=== PATIENT | female | born 1975 | race Caucasian/White ===

== ENCOUNTER 2023-02-22 16:24 | Outpatient (OUT) | payer BC, SELFPAY | END 2023-02-22 16:25 | disposition home or self-care (01) | LOC: SLEEP 16:25 | PROVIDERS: PCP Nurse Practitioner Family; Visit Provider Nurse Practitioner Family | DX: G47.33 Obstructive sleep apnea (adult) (pediatric) (principal) | CPT/HCPCS: 95806 ==

== ENCOUNTER 2023-03-31 08:51 | Outpatient (OUT) | payer BC, SELFPAY ==
[2023-03-31 08:58] LABS: Hemoglobin 14.1 g/dL (12.0-16.0)
--- NOTE | 2023-03-31 10:01 | RT_ITS ---
The [facility] Test Date: 2023-03-31 Pat Name: OWEN ZARAGOZA Department: Room: - Gender: Female C Architect: Tyson Rangel RRT : 1975 Requested By: [id number] Order Number: [id number] Reading MD: Jim Miller Interpretive Statements Pulmonary function testing was completed according to ATS criteria. Findings were considered accurate and reproducible. No bronchodilator was administered due to normal spirometric values. Due to software limitations, no prior studies (if performed previously) are currently available for comparison. Spirometry: -FEV1/FVC: Normal @ 83% -FEV1: Normal @ 124% -FVC: Normal @ 120% Lung volumes by plethysmography: -RV: Normal @ 102% -TLC: Normal @ 116% Diffusion capacity: -DLCO: Normal @ 100% when corrected for Hb 14.1g/dL Flow-volume loop: -Normal shape Impressions: -Normal PFT. If asthma remains in the differential, may consider methacholine challenge testing. Clinical correlation required. Electronically Signed On 04-10-2023 13:30:51 EST by Jim Miller
== END 2023-03-31 08:52 | disposition home or self-care (01) ==
LOC: CARD 08:52
PROVIDERS: PCP Nurse Practitioner Family; Visit Provider Nurse Practitioner Family
DX: R05.3 Chronic cough (principal); J45.20 Mild intermittent asthma, uncomplicated
CPT/HCPCS: 36415; 85018; 94010; 94726; 94729

== ENCOUNTER 2023-04-14 08:52 | Outpatient (OUT) | payer BC, SELFPAY ==
--- NOTE | 2023-04-14 08:54 | US_ITS ---
The [address] [address] Patient Name: OWEN ZARAGOZA MRN: [id number] date: 1975 Sex: F Assigned Patient Location: US Current Patient Location: US Accession/Order Number: [id number] Exam Date: 04/14/2023 09:00 Report Date: 04/14/2023 11:03 At the request of: APRYL MONTENEGRO Procedure: US pelvis EXAMINATION: US pelvis HISTORY: Bloating, Rebound Tenderness COMPARISON: No relevant comparison available. TECHNIQUE: Transabdominal and/or transvaginal sonographic examination was performed as indicated by examination type. FINDINGS: UTERUS: Hysterectomy. RIGHT OVARY: Contains a 1.8 cm benign-appearing cyst versus dominant follicle. Duplex Doppler demonstrates normal waveform and flow; resistive index 0.6. Ovary size: 3.1 x 1.9 x 2.0 cm LEFT OVARY: Oophorectomy CUL-DE-SAC: Unremarkable. No significant free fluid. BLADDER: Unremarkable. OTHER: None. US/US pelvis IMPRESSION: 1. Prior hysterectomy and left oophorectomy. 2. No acute or specific findings to account for patient's symptoms. Electronically authenticated by: DESTINI MOHR Date: 04/14/2023 11:03
== END 2023-04-14 08:53 | disposition home or self-care (01) ==
LOC: US 08:52
PROVIDERS: PCP Nurse Practitioner Family; Visit Provider Nurse Practitioner Family
DX: R14.0 Abdominal distension (gaseous) (principal); K44.9 Diaphragmatic hernia without obstruction or gangrene; R10.829 Rebound abdominal tenderness, unspecified site; R10.32 Left lower quadrant pain; R68.81 Early satiety; R11.11 Vomiting without nausea
CPT/HCPCS: 76856

== ENCOUNTER 2023-04-19 14:27 | Outpatient (OUT) | payer BC, SELFPAY ==
--- NOTE | 2023-04-19 | XR_ITS ---
The [address] [address] Patient Name: OWEN ZARAGOZA MRN: [id number] date: 1975 Sex: F Assigned Patient Location: [facility] Current Patient Location: Accession/Order Number: [id number] Exam Date: 04/19/2023 14:35 Report Date: 04/20/2023 02:06 At the request of: KUSH NIÑO Procedure: XR ankle RT min 3V PROCEDURE: XR ankle RT min 3V HISTORY: RIGHT ANKLE PAIN after losing balance COMPARISON: None. FINDINGS: BONES:Small ossification adjacent tip of medial malleolus. SOFT TISSUES:No visible soft tissue swelling. EFFUSION:None visible. OTHER: Negative. XR/XR ankle RT min 3V IMPRESSION: 1. Suspect acute small avulsion fracture from tip of medial malleolus. Correlate for site of pain. This could represent sequela of remote injury. Electronically authenticated by: DESTINI MOHR Date: 04/20/2023 02:06
== END 2023-04-19 14:28 | disposition home or self-care (01) ==
LOC: RAD 14:27
PROVIDERS: PCP Nurse Practitioner Family; Visit Provider Podiatrist Foot & Ankle Surgery
DX: M25.571 Pain in right ankle and joints of right foot (principal)
CPT/HCPCS: 73610

== ENCOUNTER 2023-05-16 15:17 | Outpatient (OUT) | payer BC, SELFPAY ==
--- NOTE | 2023-05-16 15:19 | MR_ITS ---
The [place] [id number] Patient Name: OWEN ZARAGOZA MRN: [id number] date: 1975 Sex: F Assigned Patient Location: MRI Current Patient Location: Accession/Order Number: [id number] Exam Date: 05/16/2023 15:30 Report Date: 05/17/2023 08:20 At the request of: KUSH NIÑO Procedure: MR ankle RT wo con EXAM: MR ankle RT wo con REASON FOR EXAM: peroneal tear, ankle instability. TECHNIQUE: Multiplanar, multisequence imaging of the right ankle was performed without contrast COMPARISON: Plain radiograph 04/19/2023. FINDINGS: There is fusiform thickening and intermediate signal of the Achilles tendon with distal Achilles enthesophytes consistent with tendinosis. No tear. The plantar fascia is minimally thickened with an inferior calcaneal spur. No tear. Laterally, the peroneal tendons are mildly thickened with intermediate signal consistent with tendinosis. No tear identified. Mild tenosynovitis. The superficial peroneal retinaculum appears intact. The lateral ligaments are intact. Medially, the medial flexor tendons demonstrate normal thickness and signal without tendinosis or tear. The deep deltoid ligament is intact. Lisfranc ligament is intact. Anteriorly, the anterior extensor tendons demonstrate normal thickness and signal without tendinosis or tear. The bone marrow signal is without fracture. The talar dome is congruent. The subtalar joints intact. The sinus tarsi is nonedematous. The midfoot is congruent with mild osteoarthritis of the talonavicular joint. The plantar musculature demonstrates normal bulk and signal. Mild nonspecific subcutaneous edema about the lower extremity. MR/MR ankle RT wo con IMPRESSION: 1. 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 Intact superficial peroneal retinaculum. 2. Achilles tendinosis without tear. 3. Mild chronic plantar fasciopathy. 4. Mild midfoot osteoarthritis Electronically authenticated by: MEETA FINK Date: 05/17/2023 08:20
== END 2023-05-16 15:18 | disposition home or self-care (01) ==
LOC: MRI 15:17
PROVIDERS: PCP Nurse Practitioner Family; Visit Provider Podiatrist Foot & Ankle Surgery
DX: M25.371 Other instability, right ankle (principal); S96.811A Strain of other specified muscles and tendons at ankle and foot level, right foot, initial encounter
CPT/HCPCS: 73721

== ENCOUNTER 2023-07-03 07:53 | Outpatient (OUT) | payer SELFPAY ==
--- NOTE | 2023-07-03 | XR_ITS ---
The [address] [address] Patient Name: OWEN ZARAGOZA MRN: [id number] date: 1975 Sex: F Assigned Patient Location: US Current Patient Location: US Accession/Order Number: [id number] Exam Date: 07/03/2023 08:50 Report Date: 07/03/2023 09:19 At the request of: APRYL MONTENEGRO Procedure: XR chest 2V EXAMINATION: XR chest 2V HISTORY: Chronic Cough R05.3, Cigarette Dependence F17.210 COMPARISON: XR chest 03/13/2020 FINDINGS: LUNGS: No significant pulmonary parenchymal abnormalities. VASCULATURE: No increased pulmonary vasculature. PLEURA: No pneumothorax, effusion, or pleural thickening. CARDIAC: No cardiomegaly or cardiac silhouette abnormality. MEDIASTINUM: No visible mass or adenopathy. BONES: No fracture or visible bone lesion. OTHER: Negative. XR/XR chest 2V IMPRESSION: 1. No acute cardiopulmonary process. Stable chest. Electronically authenticated by: DESTINI MOHR Date: 07/03/2023 09:19
--- OUTSIDE RECORDS SUMMARY | 2023-07-03 07:57 | XMS_ITS | CCD ---
Author Name Unknown Address [address] [place] [address] [address] [place] [address] Organization [facility] Care Team Providers Care 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 Name Role Phone Dileep Laboy MD Primary Care Provider DILEEP LABOY Primary Care Physician Candelario Burns Admitting Unavailable Candelario Burns Attending Unavailable DILEEP LABOY Referring Unavail able Phill Hay Attending Unavailable Phill Hay Admitting Unavailable Candelario Burns Referring Unavailable BENOIT ., DR PAN Primary Care Unavailable MARKER ., DR BONILLA Admitting Unavailable MARKER ., DR BONILLA Attending Unavailable MARKER ., DR BONILLA Consulting Unavailable BENOIT ., DR PAN Primary Care Unavailable FORTINO, DR OBEY West Admitting Unavailable FORTINO, DR OBEY West Attending Unavailable FORTINO, DR OBEY West Consulting Unavailable MAY WINTERS V Consulting Unavailable Asaad, Imad Unavailable MD Dileep Laboy Primary Care Provider MD Yao Aguilera Attending Provider [phone] Tami Guthrie Unavailable [phone] Leticia Hansen Unavailable Tami Guthrie Primary Care Unavailable Tami Guthrie Attending Unavailable Tami Guthrie Admitting Unavailable Asaad, Imad Admitting Unavailable AdaladYao Attending Unavailable Dileep Laboy Primary Care Unavailable Israel Naranjo Unavailable Allergies Allergy Classification Reported Allergen(s) Allergy Type Date of Onset Reaction(s) Facility (3 sources) Aspirin; Translations: [aspirin] Drug Allergy Stomach ache (finding) [facility] (18 sources) busPIRone; Translations: [buspirone] Drug Allergy 12-28-19 Renal failure syndrome (disorder) [facility] (3 sources) Codeine; Translations: [codeine] Drug Allergy Stomach ache (finding) [facility] (3 sources) Ethinyl Estradiol; Translations: [ethinyl estradiol] Drug Allergy Bradycardia [facility] (3 sources) Famotidine; Translations: [famotidine] Drug Allergy Abdominal pain (finding) [facility] (3 sources) HYDROmorphone; Translations: [hydromorphone] Drug Allergy tremors [facility] (4 sources) levoFLOXacin; Translations: [levofloxacin] Drug Allergy 12-28-19 Hives [facility] (3 sources) Meperidine; Translations: [meperidine] Drug Allergy Allergy, Unspecified, Not Elsewhere Classified [facility] (3 sources) Metoclopramide; Translations: [metoclopramide] Drug Allergy Abdominal pain (finding) [facility] (6 sources) Penicillins; Translations: [penicillins] Drug allergy 05-15-18 87 Anaphylaxis (disorder) [facility] (3 sources) Sulfamethoxazole ; Translations: [sulfamethoxazol e] Drug Allergy [facility] (1 source) Aspirin Drug Allergy 02-27-20 13 [facility] (1 source) busPIRone Drug Allergy [facility] (1 source) Codeine Drug Allergy 02-27-20 13 [facility] (1 source) Levamisole Drug Allergy 02-27-20 13 [facility] (1 source) levoFLOXacin Drug Allergy [facility] (1 source) Meperidine Drug Allergy 03-05-20 13 [facility] (1 source) Omeprazole Drug Allergy [facility] (1 source) Sulfonamides (Antibiotic) Drug allergy (disorder) 02-27-20 13 [facility] (12 sources) lamoTRIgine Drug Allergy 12-28-19 Unknown, [facility] (14 sources) Penicillin Drug Allergy Unknown [facility] Other (14 sources) Sulfonamides (Antibiotic) Propensity to adverse reactions Unknown [facility] [employer] Other (14 sources) DEMERAL Propensity to adverse reactions Unknown [employer] Other (2 sources) Sulfonamides (Antibiotic); Translations: [Sulfa (Sulfonamide Antibiotics)] Allergy to substance 10-22-19 19 Hives [facility] (1 source) busPIRone Drug Allergy 06-12-19 [facility] (1 source) lamoTRIgine Drug Allergy 12-28-19 [facility] (1 source) levoFLOXacin Drug Allergy 12-28-19 [facility] (1 source) Meperidine Drug Allergy 06-12-19 [facility] Medications Current Medications Medication Drug Class(es) Dates Sig (Normalized) Sig (Original) 8 hr acetaminophen 650 mg extended release oral tablet (15 sources) Start: 03-21-2022 Tylenol 8 Hour Caplet 650 mg oral tablet, extended release 1,300 mg = 2 tab(s), Oral, q8hr, Refills(s) 0 Start Date: 03/21/22 Status: Ordered Tylenol Active acetaminophen 325 mg / oxyCODONE hydrochloride 5 mg oral tablet (1 source) Opioid Agonist Start: 03-01-2022 take 1 tablet by mouth every four hours as needed for pain Percocet 325 mg-5 mg Tab TAKE 1 TABLET BY MOUTH EVERY 4 HOURS NEEDED FOR PAIN Start Date: 03/01/22 Status: Ordered Albuterol (17 sources) beta2-Adrenergi c Agonist Start: 12-27-2022 Albuterol Active MCG INHALATION December 27, 2022 12:00am Start: 08-10-2019 take 60 doses by inh alation every four hours as needed albuterol 0.083% Inh Aleksandra 3 mL 0.083% - 3mL dosing units, Inhalation, q4hr as needed for wheezing, 60 EA, Refill(s) 0, [id number], 163, cm, 08/10/19 11:04:00 EDT, Height/Length Measured, 110, kg, 08/10/19 11:04:00 EDT, Weight Measured Start Date: 08/10/19 Status: Ordered take 2 puff(s) by [facility] every four to six hours as needed Albuterol Sulfate HFA 108 (90 Base) MCG/ACT INHALE 2 PUFFS BY MOUTH EVERY 4-6 HRS NEEDED Inhalation for 17 Days Active take 2 puff(s) by mo uth every four to six hours as needed Albuterol Sulfate HFA 108 (90 Base) MCG/ACT INHALE 2 PUFFS BY MOUTH EVERY 4-6 HRS NEEDED Inhalation for 17 Days Active take 2 puff(s) by mo uth every four to six hours as needed Albuterol Sulfate HFA 108 (90 Base) MCG/ACT INHALE 2 PUFFS BY MOUTH EVERY 4-6 HRS NEEDED Inhalation for 17 Days Active ARIPiprazole 5 mg oral tablet (9 sources) Atypical Antipsychotic take 1 tablet by mouth every twenty-four hours Abilify 5 MG 1 tablet Orally Once a day takes 1/2 tab Active take 1 tablet by pankaj th every twenty-four hours Abilify 5 MG 1 tablet Orally Once a day Active azithromycin 250 mg oral tablet (2 sources) Macrolide Antimicrobial Start: 05-01-2023 Azithromycin 250 MG 2 tablet on the first day, then 1 tablet daily for 4 days Orally Once a day for 5 days Apr, Active cetirizine hydrochloride 10 mg oral tablet (15 sources) Histamine-1 Receptor Antagonist Start: 12-27-2022 Cetirizine Active MG TABLET December 27, 2022 12:00am Start: 12-21-2022 take 1 tablet by pankaj every twenty-four hours Cetirizine HCl 10 MG 1 tablet Orally Once a day for 90 days Dec, Active dicyclomine hydrochloride 20 mg oral tablet (1 source) Anticholinergic Start: 10-21-2018 take 20 mg by mouth four times daily Dicyclomine Active 20 MG PO Four times daily October 21, 2018 12:00am DULoxetine 60 mg delayed release oral capsule (3 sources) Serotonin and Norepinephrine Reuptake Inhibitor take 1 capsule by mouth every twenty-four hours Cymbalta 60 MG 1 capsule Orally Once a day Active gabapentin 600 mg oral tablet (17 sources) Anti-epileptic Agent Start: 12-27-2022 take 600 mg by mouth once daily Gabapentin Active 600 MG PO Daily December 27, 2022 12:00am Start: 03-01-2022 take 1 tablet by pankaj th three times daily gabapentin 600 mg Tab TAKE 1 TABLET BY MOUTH THREE TIMES A DAY Start Date: 03/01/22 Status: Ordered Gabapentin 600 M G 1 tablet Oral 2-3 times per day for 30 days Active ibuprofen 200 mg oral tablet (11 sources) Nonsteroidal Anti-inflammatory Drug take 1 tablet by mouth every six hours Ibuprofen 200 mg 1 tablet as needed Orally every 6 hrs Active lamoTRIgine 100 mg oral tablet (3 sources) Mood Stabilizer, Anti-epileptic Agent take 1 tablet by mouth every twenty-four hours LaMICtal 100 MG 1 tablet Orally Once a day Active meloxicam 15 mg oral tablet (18 sources) Nonsteroidal Anti-inflammatory Drug Start: 11-29-19 take 1 capsule by mouth once daily meloxicam 10 mg oral capsule 10 mg = 1 cap(s), Oral, Daily, Refills(s) 0 Start Date: 11/29/19 Status: Ordered Start: 10-21-2018 take 1 tablet by pankaj th once daily meloxicam 15 mg oral tablet TAKE 1 TABLET BY MOUTH EVERY DAY FOR 30 DAYS Start Date: 03/01/22 Status: Ordered montelukast 10 mg oral tablet (12 sources) Leukotriene Receptor Antagonist Start: 02-10-2023 take 1 tablet by mouth every twenty-four hours Montelukast Sodium 10 MG 1 tablet Orally Once a day for 90 days Jan, Active omeprazole 20 mg delayed release oral capsule (16 sources) Proton Pump Inhibitor Start: 12-27-2022 take 40 mg by mouth twice daily Omeprazole Active 40 MG PO Twice daily 180 90 December 27, 2022 8:44am Start: 12-27-2022 End: 12-27-2022 take 1 capsule by mouth once daily Omeprazole (Prilosec) 20 mg Capsule,Delayed Release(Dr/Ec) Discontinued 20 MG PO Daily December 27, 2022 12:00am December 27, 2022 8:45am polyethylene glycol 3350 258247 mg / potassium chloride 2970 mg / sodium bicarbonate 6740 mg / sodium chloride 5860 mg / sodium sulfate 44796 mg powder for oral solution (2 sources) Osmotic Laxative Start: 12-26-2022 take 236 g by mouth once daily Golytely 236 GM as directed Orally once daily for 1 days Dec, Active pregabalin 75 mg oral capsule (1 source) Start: 03-01-2022 take 1 capsule by mouth three times daily pregabalin 75 mg Cap TAKE 1 CAPSULE BY MOUTH THREE TIMES A DAY FOR 30 DAYS Start Date: 03/01/22 Status: Ordered SudoGest Sinus/Allergy (10 sources) SudoGest Sinus/Allergy Active traMADol hydrochloride 50 mg oral tablet (2 sources) Opioid Agonist Start: 03-01-2022 take 2 tablets by mouth three times daily as needed for pain tramadol 50 mg oral tablet TAKE 2 TABLETS BY MOUTH 3 TIMES A DAY NEEDED FOR PAIN FOR 30 DAYS Start Date: 03/01/22 Status: Ordered Completed/Discontinued Medications Medication Drug Class(es) Dates Sig (Normalized) Sig (Original) albuterol HFA 90 mcg/inh MDI (2 sources) Start: 02-19-2020 take 1 dose by inhalation four times daily albuterol HFA 90 mcg/inh MDI 2 puff(s), Inhalation, QID Wheezing, 1 EA, Refill(s) 0, [id number], 162.5, cm, 01/03/20 10:07:00 EDT, Height/Length Dosing, 102.5, kg, 01/03/20 10:07:00 EDT, Weight Dosing Start Date: 02/19/20 Status: Ordered ondansetron 4 mg disintegrating oral tablet (1 source) Serotonin-3 Receptor Antagonist Start: 10-21-2018 End: 12-27-2022 Ondansetron Discontinued 4 MG PO every 6 to 8 hours October 21, 2018 12:00am December 27, 2022 7:54am raNITIdine 150 mg oral tablet (1 source) Histamine-2 Receptor Antagonist Start: 10-21-2018 End: 12-27-2022 take 1 tablet by mouth twice daily Ranitidine Hcl (Zantac) 150 mg Tablet Discontinued 150 MG PO Twice daily October 21, 2018 12:00am December 27, 2022 7:54am Problems Active Problems Problem Classification Problem Date Documented Da te Episodic/Chronic Abdominal hernia (5 sources) Hiatal hernia; Translations: [Diaphragmatic hernia without obstruction or gangrene] 10-21-2018 Episodic Abdominal pain (20 sources) Left upper quadrant pain; Translations: [Left upper quadrant pain] 10-21-2018 Episodic Administrative/social admission (2 sources) Dietary counseling and surveillance; Translations: [Other specified counseling] Episodic Anxiety disorders (4 sources) Anxiety; Translations: [Chronic post-traumatic stress disorder] 10-30-2018 Chronic Asthma (11 sources) Mild intermittent asthma; Translations: [Mild intermittent asthma, uncomplicated] Chronic Biliary tract disease (2 sources) Biliary calculus 10-30-2018 Episodic Chronic obstructive pulmonary disease and bronchiectasis (1 source) Bronchitis, not specified as acute or chronic Episodic Coagulation and hemorrhagic disorders (2 sources) Heterozygous Factor V Leiden mutation 04-17-2017 Chronic Disorders of lipid metabolism (4 sources) Dyslipidemia; Translations: [Hyperlipidemia, unspecified] Chronic E Codes: Cut/pierceb (1 source) Contact with sharp glass, initial encounter; Translations: [CONTACT W/SHARP GLASS INITIAL ENC] Onset: 3 Episodic Endometriosis (2 sources) Endometriosis (clinical) 08-30-2013 Chronic Esophageal disorders (20 sources) Gastroesophageal reflux disease; Translations: [Todd's esophagus] 08-30-2013 Chronic Headache; including migraine (2 sources) Migraine with aura 11-29-2019 Chronic Immunizations and screening for infectious disease (1 source) Encounter for immunization; Translations: [ENCOUNTER FOR IMMUNIZATION] Onset: 3 Episodic Mood disorders (15 sources) Depressive disorder; Translations: [Recurrent major depressive episodes, moderate ] 03-01-2022 Chronic Nausea and vomiting (1 source) Vomiting without nausea Episodic Open wounds of extremities (4 sources) Laceration without foreign body of right index finger without damage to nail, initial encounter; Translations: [LAC W/O FB RT IF W/O DMG NAIL INIT] Onset: 3 Episodic Osteoarthritis (1 source) Unspecified osteoarthritis, unspecified site; Translations: [UNSPECIFIED OSTEOARTHRITIS UNS SITE] Onset: 2 Chronic Other connective tissue disease (2 sources) Fibromyositis 08-30-2013 Episodic Other connective tissue disease (2 sources) Fibromyalgia; Translations: [FIBROMYALGIA] Onset: 2 Episodic Other connective tissue disease (14 sources) Fibromyalgia; Translations: [Fibromyalgia] Episodic Other gastrointestinal disorders (2 sources) Constipation 03-06-2019 Episodic Other gastrointestinal disorders (16 sources) Dysphagia; Translations: [Dysphagia, unspecified] 03-06-2019 Episodic Other gastrointestinal disorders (14 sources) Constipation alternates with diarrhea; Translations: [Other specified symptoms and signs involving the digestive system and abdomen] Episodic Other gastrointestinal disorders (14 sources) Swollen abdomen; Translations: [Abdominal distension (gaseous)] Episodic Other gastrointestinal disorders (2 sources) Abdominal distension (gaseous) Episodic Other gastrointestinal disorders (1 source) Other specified symptoms and signs involving the digestive system and abdomen Episodic Other lower respiratory disease (2 sources) Chronic cough 11-29-2019 Episodic Other lower respiratory disease (2 sources) Dyspnea 12-09-2019 Episodic Other lower respiratory disease (2 sources) Dyspnea at rest 11-29-2019 Episodic Other nervous system disorders (2 sources) Right cervical root neuropathy 11-29-2019 Chronic Other nervous system disorders (1 source) Other chronic pain; Translations: [OTHER CHRONIC PAIN] Onset: 2 Chronic Other nutritional; endocrine; and metabolic disorders (6 sources) Body mass index 40+ - severely obese; Translations: [Body mass index (BMI) 40.0-44.9, adult] 11-29-2019 Chronic Other nutritional; endocrine; and metabolic disorders (2 sources) Disorder of carbohydrate metabolism 10-30-2018 Chronic Other nutritional; endocrine; and metabolic disorders (5 sources) Morbid obesity; Translations: [Morbid (severe) obesity due to excess calories] 11-29-2019 Chronic Other nutritional; endocrine; and metabolic disorders (1 source) Body mass index (BMI) 40.0-44.9, adult Chronic Other nutritional; endocrine; and metabolic disorders (1 source) Morbid (severe) obesity due to excess calories Chronic Other nutritional; endocrine; and metabolic disorders (1 source) Abnormal weight gain Episodic Other nutritional; endocrine; and metabolic disorders (1 source) Other symptoms and signs concerning food and fluid intake Episodic Other screening for suspected conditions (not mental disorders or infectious disease) (2 sources) Liver enzymes abnormal 03-06-2019 Episodic Other upper respiratory disease (14 sources) Allergic rhinitis; Translations: [Other allergic rhinitis] Chronic Other upper respiratory disease (1 source) Other allergic rhinitis Chronic Pancreatic disorders (not diabetes) (2 sources) Acute pancreatitis 10-30-2018 Episodic Residual codes; unclassified (2 sources) Obstructive sleep apnea of adult 12-09-2019 Chronic Residual codes; unclassified (4 sources) Obstructive sleep apnea syndrome; Translations: [Obstructive sleep apnea (adult) (pediatric)] Chronic Residual codes; unclassified (1 source) Obstructive sleep apnea (adult) (pediatric) Chronic Residual codes; unclassified (14 sources) Early satiety; Translations: [Early satiety] Episodic Residual codes; unclassified (14 sources) Frequent night waking; Translations: [Insomnia, unspecified] Episodic Residual codes; unclassified (1 source) Early satiety Episodic Residual codes; unclassified (1 source) Family history of malignant neoplasm of digestive organs Episodic Spondylosis; intervertebral disc disorders; other back problems (15 sources) Cervical spondylosis without myelopathy; Translations: [Spondylosis without myelopathy or radiculopathy, cervical region] Chronic Substance-related disorders (18 sources) Smoker; Translations: [Nicotine dependence] 04-23-2020 Chronic Comment on above: Added secondary to d ocumentation in Social History. Unclassified (1 source) Dietary counseling and surveillance; Translations: [Dietary counseling and surveillance] Onset: Past or Other Problems Problem Classification Problem Date Documented Da te Episodic/Chronic Other gastrointestinal disorders (1 source) Dysphagia, unspecified; Translations: [Dysphagia, unspecified] Onset: 12-27-2022 Episodic Other non-traumatic joint disorders (1 source) Pain in right shoulder; Translations: [PAIN IN RIGHT SHOULDER] Onset: 01-24-2022 Episodic Spondylosis; intervertebral disc disorders; other back problems (5 sources) Cervicalgia; Translations: [Pain in thoracic spine] Onset: 01-19-2022 Episodic Unclassified (2 sources) Chronic cough R05.3 Unclassified (1 source) Food insecurity Z59.41 Results Test Name Value Interpretation Reference Range Facility Amphetamine Screen Ql (U)Ord ered By: Yao Asaradha on 12-27-2022 Amphetamines Ql (U) Negative Negative [facility] Barbiturates [Presence] in U rine by Screen methodOrdered By: Imad Asaad on 12-27-2022 Barbiturates Screen Ql (U) Negative Negative [facility] Benzodiazepines Screen Ql (U )Ordered By: Imad Asaad on 12-27-2022 Benzodiazepines Ql (U) Negative Negative [facility] Benzoylecgonine [Presence] i n Urine by Screen methodOrdered By: Imad Asaad on 12-27-2022 Benzoylecgonine Screen Ql (U) Negative Negative [facility] Cannabinoids [Presence] in U rine by Screen methodOrdered By: Imad Asaad on 12-27-2022 Cannabinoids Screen Ql (U) Negative Negative [facility] Comment on above: These are unconfirme d results and should not be used for legal purposes. Drug Cut-Off Concentration: AMPH 1000 ng/mL KARMA 200 ng/mL ZOILA 200 ng/mL COCM 300 ng/mL OP 300 ng/mL PCP 25 ng/mL THC 20 ng/mL Drug Screen,Urineon 12-28-19 Amphetamine Screen,Urine Negative Normal Negative [facility] Comment on above: Performed By: #### U RDS #### [address] Barbiturate Screen,Urine Negative Normal Negative [facility] Comment on above: Performed By: #### U RDS #### [address] Benzodiazepines Screen,Urine Negative Normal Negative [facility] Comment on above: Performed By: #### U RDS #### [address] Cannabinoid Screen,Urine Negative Normal Negative [facility] Comment on above: Result Comment: Thes e are unconfirmed results and should not be used for legal purposes. Drug Cut-Off Concentration: AMPH 1000 ng/mL KARMA 200 ng/mL ZOILA 200 ng/mL COCM 300 ng/mL OP 300 ng/mL PCP 25 ng/mL THC 20 ng/mL PERFORMED BY: [place] [address] PATHOLOGIST FIELD [employer] HARVEST CONTRACTOR LOC LANDRY M.D. Performed By: #### U RDS #### [address] Cocaine Screen,Urine Negative Normal Negative [facility] Comment on above: Performed By: #### U RDS #### [place] [address] [place] Opiate Screen,Urine Negative Normal Negative [facility] Comment on above: Performed By: #### U RDS #### [address] Phencyclidine Screen,Urine Negative Normal Negative [facility] Comment on above: Performed By: #### U RDS #### [facility] [address] [id number] [facility] [place] 12-27-2022 L Specimen: [id number] Received: 12/27/22 Status: HERNAN Torres Num: [id number] Spec Type: Surgical Subm Dr: Yao Aguilera MD Tissues: A GASTRIC FOR HP (GASTRIC HP) Procedures: HE/2, Gross/Micro L4, H PYLORI Age/ Patient Sex Location Account Attending Physician Owen Gonzalez 47/F [id number] Yao Aguilera MD SPEC NUM: [id number] RECD: 12/27/22 STATUS: HERNAN TORRES NUM: [id number] ELLA: 12/27/22- DR: Yao Aguilera MD ENTERED: 12/27/[address] [facility] [address]: SPEC TYPE: Surgical DEPT: S ORDERED: HE/2, Gross/Micro L4, H PYLORI ORDERED: HE/2, Gross/Micro L4, H PYLORI Pathological Diagnosis Gastric biopsy: - Antral mucosa with apparently superimposed changes of mild chronic reactive gastropathy and mild inactive chronic gastritis, otherwise without erosion, acute inflam mation, intestinal metaplasia, or glandular atypia identified - H. pylori immunostain with appropriate control is negative for identified Helicobacter organisms Clinical Information GERD, rule out H. pylori Gross Description Received in formalin labeled with the patient's name, date of and gastric are three morris tissues ranging from 0.1 cm to 0.4 x 0.2 x 0.2 cm. Entirely submitted in one cassette labeled A1. Microscopic Description Two H E slides reviewed. The microscopic examination confirms the diagnosis. Specimen: [id number] Received: 12/27/22 Status: HERNAN Torres Num: [id number] Spec Type: Surgical Subm Dr: Yao Aguilera MD Tissues: A GASTRIC FOR HP (GASTRIC HP) Procedures: HE/2, Gross/Micro L4, H PYLORI Patient: Owen Gonzalez [id number] (Continued) Specimen: [id number] Received: 12/27/22 (Continued) Signed (signature on file) Judson Jo MD 12/28/222007 Specimen: [id number] Received: 12/27/22 Status: HERNAN Torres Num: [id number] Spec Type: Surgical Subm Dr: Yao Aguilera MD Tissues: A GASTRIC FOR HP (GASTRIC HP) Procedures: HE/Deric, Gross/Micro L4, H PYLORI Patient: [place] thomas [id number] (Continued) Specimen: [id number] Received: 12/27/22 (Continued) CPT Codes 22800, 75817 Specimen: [id number] Received: 12/27/22 Status: HERNAN Brian Num: [id number] Spec Type: Surgical Subm Dr: Yao Aguilera MD Tissues: A GASTRIC FOR HP (GASTRIC HP) Procedures: TORI/Deric, Gross/Micro L4, H PYLORI Patient: Owen Gonzalez [id number] (Continued) Signed (signature on file) Judson Jo MD 12/28/222007 [facility] Opiates [Presence] in Urine by Screen methodOrdered By: Yao Aguilera on 12-27-2022 Opiates Screen Ql (U) Negative Negative [facility] Phencyclidine Screen Ql (U)O rdered By: Yao Aguilera on 12-27-2022 Phencyclidine Ql (U) Negative Negative [facility] Insurance Correspondence Off iceon 03-29-2022 Insurance Correspondence Office [phone] [id number] #[id number]:[id number] Normal [facility] Coding Summary.on 03-24-2022 Coding Summary. [id number] Gh0bWw+PGhlYWQ+PE1FV NTfE74glJEwsO7AQ2aJM M5VNVUIWBVYDE5ZJC3ys KV3UNxkX4BpnvBz RnuefJCaFC72DXl9XSW6 hUuaMUtezF9nwOOjZ2b7 CoTnNC43cP62ENbsUTSv VuV6OiSbwycviCHg F7olCkYgyDKxOkx+PHRh YmxlIHdpZHRoPScxMDAl IgEjdIosAY9bWm8lKAYp LWNvbGxhcHNlOiBj q8nkBRDcSJbjHM9urDyv X1YprHR9JBMdb6q0Jj98 dHI+SANaFQU7hXcbYWte z863QuCgw3wqXEN9 qOCxMTzgNTH8U17pf2Z0 GRRiXPWsOKB9rOJ1vB2y cFzhtknnB4KqbSTlXtE7 UCM6jEPdtI3geQwz swynuR6oDhj+U54TRH5Z LSDUTW3ZBde5C0VmRtkk dHI+XG20GTCuIW43wKTf wSMwy8fqsBw4EkOl LKSwLMJ6iRivZXcvm5Iw RGYjO38wlVHfp3H1VGVk qKtavSRkWiPbvEW3hZ0v UQjpmvtxr6dkadsd Enkqc8lhwu71jF67H95d IArjHHJuPLQ1EQSwHQCb wMqqsk3ihB9cBp4+IDxj u6ano2tulVw8CnOy NZKjvhZsvPehMEX7r2Ii Od50Z4DldKnbp7VhJim9 hz47fBRil9E6lVW8ODvi YKYceE2kILkxDuH6 YJCnTdAqdO31cATvWIin Ud6rmRsolNlxZF4tEQEb dzdzAAVsrG7uHGDsmPTn wDsmTR0tWMGshqaw r470RgSuJPZ9ZWMfjSXh K1AtrC8yJwEhDVKvBNCp L7YsuSNsLHmwJ959ZXwr RpF9PJNlvzIpH9Tf ZGChrGppYaP1l2J1Sn4H e3ZtcjvrZQV0PPdhYKKa OcDsXaYyRnM5Z9MzJrx0 YYGsbJziVO8zK5Tb MTJhfcwmfikuqYZ8JENm MJCekU98tVSdDWquWu2d r2I6k529FEVdGBBfdO84 Wg9neStlXFGsmTTF vX2cpwbgp8atmvljYlMy LMMdLPn8FSi2KDKleTld ZqWrZPP2KnF7HBC8jXJl iU4hvOspxkyqdG5j Oyc+I96nfN0vECS2SHH2 syzaYNYtirZpDH38LU02 I0HjAcxyfVPgzKG+PGRp nrLkrMveEQ2yUuCl e0pyu1IoCJzzB2YwMRAt DOdsVxv8SKAmRHK9gXA1 rN4qVNLaBSvmn2Y4zNC3 H1DpezMljv7ca7rg VQZdBUkeK20jqJHfg0V3 CZLogSU0JQQepPciXpGv qD99Kat+LVBjpSqmu9Sq Droof8wmd9iwoPa3 IjMwJSIgdmFsaWduPSJ0 w6OiYn09P78dQOvcWHHl VPLgNVEiUGJcfZhgml3c mB4fHs8+PGNvbCB3 vTH7uY2nOWNdFgY8TQyn V818XkDuhUFtJjkni0zx i9eepOe1GzLcCNDueqQj kUfmWIX0y4PmEz90 X77jOTopBWGdEETaKXEg LUVmrTpcfd4sqG8mOj8+ WJ4ns7timx56qK14vYU+ BRHnQPC9fGbeYTrj AKFzuA9uGIctYgJ8LEOo XcIcxM86jVYxEScpUl2p fZfcjOvvYD4sANCrwbcx x231YxPtx6wuALBu zYKpIXhpJPF7E47ag5T9 ERGeYPXqSQG9yGK1nF7p bGlnbjogbGVmdDsgdmVy dVchOKskEBphM030 IHRvcDsnPlBhdGllbnQg XmRzGAl2U4OzPuc1WVMd oCxoDA6jiGRlDCftHo5l oNtseFjeQL7lFWOa mzilp056ZjBvj3dgSYAy jBIxGOzkMHN8C24lj2Y4 EGKjMMLpVOH7jJH5dK9h bGlnbjogbGVmdDsg ovUybHihIMhhPTmhM251 IHRvcDsnPkJpcnRoIERh nKT4NR28KL57nDNhv1F3 cLS4S8RcFXLuzuvl sxredIL3PTRsTWPkfG54 Uo1xjTstGv2qFEFhYMW9 FOThoHCiQ6FqbY2sIhUk NUTiTURuR0QubMJh VYbwE113YNmkLiM4WQEx fgKfY2VwQZXazGdxObV9 j4I2Dn9BL9W8MX97VH37 zVGyi0L0nFQ8Z7Jm SRGjolwwxxyhpCM9IZZg HIPzvP52Kf1rhVpaMc9l UDRuRCI8NMLjyULfO4Ru nR6wWoEqGBHrPWVn H3MvmBIxGAjwZ388WKbe UcX0JOCbtyOdV8GdQCBc sKkeFlX6c7H0Yh4QOZw3 QE21PO01pOEll8X7 vFZ0T2OgTTMltsedehzh cON9MPNvIYOppT14De2n gDskWn6jNKWaVEY8PSXi tUMhF8SgtP9tOiJc RIEuKKMwO6XoeRLgZMxn K971JBhsAvC9JSKmrlRc G0MmOGLhqUzdRrQ4d4O1 Ym0LDAIfMA12BNX3 qJC7RB31KM93T7EzAzwy dGFibGU+PHRhYmxlIHdp ZHRoPScxMDAlJyBzdHls UJ7zNu4bFEOlMYXk cNvugJClOrXji4xrZMXq VHtlLL8ihNnmX1XrbRT3 TSChe9b8Qf05B59dN6Xx dXA+TKKzeCV6aOW6 uD8aBwMvXgF8DOvoE833 IsLjfIWnHqtfg8uow9av dSk6JdL4JAYlenKdqIml ZIJ1f7WxLq42S36x IHdpZHRoPSIxNSUiIHZh wLhchu2vdW4vEc7+PGNv tGN4nRA6tL5cPdLpHgP8 ULogR602RwHnfCOh Anupw5fbl8tliQg6CvSg QGVcjlYseDgmDRA0q9Uz Ga18F7TweFpej8FoIcj9 ru16mPRjf0P5tAV7 V8MxCQWgqtlwnQPmjFqy ZC8nSTDtkgdoNFLovO1x CVMmW2t1EyUgLnI2DRvx I6DgjrV8KRCwcEEd MJojPOK7P93ab7R1ZUNc UTPxFHZ0aYU0qD3kmQao bjogbGVmdDsgdmVydGlj DWvnCMwqR256ULRy mFuiCJVmjQ2pHBEnpISx nPnyGZ6cAEWbitbqWf5A C3YGKdmyXS0ZODeAPAx8 P1BlLku2HJKrzFxr WG9hvMBiCZnwUz1ohUwi xCntPI7xPNZmcemnOUKi rE7xSEXfmKSchHgdHL4r IGJjwbsto661QhXr QSF8IVMmcKJuA8LqvB0u IuZzDKGpDNWgL6VykDBu MHyuF236XFglLcQ5QWEq voGyD4GsUQTaxFwm OyQ6p3I7Qo1zLQ1vXV6z BDp9FF53OT92aQPog1A8 eFC1U4KcGQJjlxnyutuu pNW3SWTtEROasZ95 rQLzXAdyRi2dw2U3g724 HEByIQTmhP14Lv7jrOjq PQGzoRNXhS8dggkfx8zy cjogIzAwMDAwMDt0 NWk3QZBirJaiNqBjERB1 MsO4MJV2jBXcgQ6hgVvl ajgtdM5fAar+NDQgWWVh saO9V0ZfWwv5JFHb gOttZZ0qsNCkFJsbOa7k hVdrjPcaCH1uFRLhbzzc CLNwmX1wZRVxzSAowRws OG3rNSRtotnvz406 SmRzHTL7ROHtyCIzX3Kf xM5gMrLmILFgFGLeQ7Mn pISwIFkyM967ALziNkW7 MPVudrKlI3HvWNEs lPvnGoF9o1P4Ql0TYQ2g kFC2S1RvJru7ANUbwSyn KX5jsMHqBFqcAs2gbIdf gHlmFP0xAFCaonrq KZFuxR6kOPYumRScgTuc SX0lGLBaihueu342QxFy LWO9MZBlbRVbS1ZfsT9b GpZwJVGiEYZzJ7Ya nASvJZfeF014ZDhnCuJ3 RWOiyhUmU8NyACPnyKhv TcE3m6L8Gw8QZRolRB9m zkTyWI9mohM6G4Zv PjwvdHI+BV68SMIzBK46 tFSerVPob8wolRe6IvWh IYRkIHJ2uJhmDQeep1Sb CMGqO40blQCjf6E2 IGNvbGxhcHNlOyBlbXB0 jU6oECuvlaizb8arbyow Qslfr8vybv98rB84M91x IHdpZHRoPSIzMCUi ZSJuhBgxgh3gqY2uPi5+ UQVabEB6dMS6eR3iEiXs EaF7YGezA179LmIxlVAj Shhfu5idw1pqpKh3 IjIwJSIgdmFsaWduPSJ0 b0HdOj68P33pREkoLTWz BIXsVKOyMNKvkOapes6m gG5nPc5+LV8nv1lh op57xP18rTG+PHRkIHN0 xZjqXCjbAHPurK9fSIeo TmA2VFSyEoFueA92tREi BGexIz2jsEwflJld NY3pPLJjcodqi393NuIx p9yuVWKijSDfMFckQWF1 Z45jf6A5UFXtKEHnNRL9 wCQ1kE2jiZkzdmhm bGVmdDsgdmVydGljYWwt SNnxN999LNKwaVexUoKr dCTzX6xxklKUAP2jAajv dGQ+WNKzHVC1hMzu HTluIWPhzQ0xKBVcT0o1 KvWnUoI8LEemM2LsixZ1 LHAmgWWmCAVxdBLZxE7f fulil9nfwaqzOxQt WXQsFOe7HCu7UEVxdIjs JsPvCUK6DqN9ZAB6vNOy lQ4peCcrcnrvbR9dNxh+ RklOOjwvdGQ+PHRk JUY9yPrmYCgrNYJvxF2f KZDjM6k8HcGqWeM6ELuf S5QyecG1VWPmcKHuVKIk nVJMqU4pcwflh4nz gaqrFaArOEEeKYt1BDe2 CKDgjMxtDmMoKHX7DhD4 OZT4hWKgjW1rzPmhmwsw wY7uKay+TVJOOjwv dGQ+AFVxTYM5fWpwRAic RPJrpM0gRSHlQ1k4OsLd KqL2YNqwU6LqdvW0DUMq rNHjTNJdtYXPdT8v iopje7jbynrqEcVqKBFw QYe2NBq8PSXeiIksCoTa KUP1AbD5UVR4jIGqoE2o hSqmoehryK5nTed+ FUM1EMY1QE46TZ96W7Tm PjwvdGFibGU+PHRhYmxl IHdpZHRoPScxMDAlJyBz dGgcZE2uMt5eGJJl LWNv (more content not included)... Normal [facility] Referrals Officeon 2 Referrals Office [id number]# 1.00CD:127 Normal [facility] Physician Orderon 03-23-2022 Physician Order [id number] 3#1.00CD:127 Normal [facility] Physician Order [id number] 2#1.00CD:127 [facility] Consent for Treatmenton Consent for Treatment [id number] 0#1.00CD:127 Normal [facility] Consultation Noteon 03-21-20 22 Consultation Note Patient: OWEN GONZALEZ Age: 46 years Sex: Female : 1975 Associated Diagnoses: None Author: Bharti SHELDON, Phill Miranda Basic Information Accompanied by: No one. Source of history: Self. Referral source: BENOIT SHELDON, DILEEP Méndez History limitation: None. Chief Complaint 03/21/2022 9:11 EST neck pain radiates into right shoulder History of Present Illness 46-year-old female who is experiencing severe right-sided neck and arm/shoulder pain since January of this year. She says she woke up with a slightly sore right shoulder and went to go take care of her 15-year-old disabled daughter. Following taking care of her daughter the patient experienced a severe exacerbation of her pain. The pain has been intense since then. She rates it as a 10/10 on the visual analog scale. Patient does have a significant medical history for fibromyalgia. She is treated through her primary care physician with tramadol, Tylenol, meloxicam, and medical marijuana. Patient finds that the medications take a slight edge off of the pain. Any movement exacerbates the pain. She initially was unable to move her entire right upper extremity. She did go to the emergency room and was told that she pulled a muscle. She was told to try massage therapy. She continues not to be able to move the right upper extremity at the shoulder joint past parallel. The pain and weakness is significantly impacting quality life and activities of daily living. The patient was referred to Dr. Burns who referred the patient here for further evaluation and treatment. Review of Systems Complete review of systems obtained and reviewed. Form scanned. Pertinent findings are noted in the HPI. Health Status Allergies: Allergic Reactions (All) Severity Not Documented Aspirin- Stomach pain... BuSpar- Renal failure. Codeine- Stomach pain... Demerol HCl- Allergy, unspecified, not elsewhere classified. Dilaudid- Tremors. Ethinyl estradiol- Bradycardia. Levaquin- Hives. Penicillins- Anaphylaxis. Pepcid I.V.- Abdominal pain. Reglan- Abdominal pain. Sulfamethoxazole- Hives. Current medications: Home Medications (6) Active albuterol 0.083% Inh Aleksandra 3 mL 0.083% - 3mL dosing units, PRN, Inhalation, q4hr albuterol HFA 90 mcg/inh MDI 2 puff(s), PRN, Inhalation, QID gabapentin 600 mg Tab meloxicam 15 mg oral tablet tramadol 50 mg oral tablet Tylenol 8 Hour Caplet 650 mg oral tablet, extended release 1,300 mg = 2 tab(s), Oral, q8hr Problem list: All Problems Abnormal liver enzymes / SNOMED CT 220448096 / Confirmed Anxiety / SNOMED CT 35909278 / Confirmed Todd's esophagus / SNOMED CT 895072154 / Confirmed Body mass index 40.0-44.9, adult / SNOMED CT 9523806070 / Confirmed Chronic coughing / SNOMED CT 436968821 / Confirmed Chronic post-traumatic stress disorder / SNOMED CT 146365599 / Confirmed Classic migraine / SNOMED CT 3558577 / Confirmed Constipation / SNOMED CT 63300070 / Confirmed Depression / SNOMED CT 04548825 / Confirmed Dysphagia / SNOMED CT 68127977 / Confirmed Dyspnea on minimal exertion / SNOMED CT 517804365 / Confirmed Endometriosis / SNOMED CT 0452378410 / Confirmed Factor 5 Leiden mutation, heterozygous / SNOMED CT 228117537 / Confirmed Fibromyalgia / SNOMED CT 26224196 / Confirmed GERD - Gastro-esophageal reflux disease / SNOMED CT 2062341550 / Confirmed Glucose intolerance / SNOMED CT 46832580 / Confirmed Morbid obesity due to excess calories / SNOMED CT 883001422 / Confirmed Obesity / SNOMED CT X7938H56-0504-7K65-X [id number] / Possible Obstructive sleep apnea, adult / SNOMED CT 3549222540 / Confirmed Right cervical radiculopathy / SNOMED CT 2273307020 / Confirmed Shortness of breath at rest / SNOMED CT 073629312 / Confirmed Smoker / SNOMED CT 191342680 / Confirmed Added secondary to documentation in Social History. Histories Past Medical History: Active GERD - Gastro-esophageal reflux disease (7852984849) Todd's esophagus (900355304) Endometriosis (1730330657) Fibromyalgia (86261025) Resolved Acid reflux (355014347): Resolved. Hiatal hernia (330038221): Resolved. Gallstones (233272407): Resolved. Acute pancreatitis (317707704): Resolved. Family History: Primary malignant neoplasm of colon Uncle Anxiety Child Rheumatoid arthritis Mother Hypothyroidism Mother Diabetes mellitus type 2 Grandparent Alcoholism Brother Stroke Grandparent Depression Child DVT - Deep vein thrombosis Uncle DVT Aunt Procedure history: Hysterectomy (474321021) on 04/28/2017 at 41 Years. Comments: 04/28/2017 17:10 ADELAIDA Ruggiero RN, Leta Robotic-assisted hysterectomy, left salpingo-oophorectom y, right salpingectomy, lysis of adhesions laparoscopic tubal with cautery, fulguration of endometriosis, removal of IUD on 09/04/2013 at 38 Years. Laparoscopic cholecystectomy (72030059). Colonoscopy (412428715). EGD. Social History Social & Psyc (more content not included)... [facility] Comment on above: Result Comment: Elec tronically Signed By: Bharti SHELDON, Phill Cruz.br\Date and Time Signed: 03/21/22 09:54 EST HIPAA Forms Officeon 022 HIPAA Forms Office [id number]. [id number] 5#1.00CD:127 [facility] Legal Correspondence Officeo n 03-21-2022 Legal Correspondence Office [id number]. [id number] 1#1.00CD:127 [facility] Legal Correspondence Office [id number]. [id number] 5#1.00CD:127 [facility] Office/Clinic Note-Physician on 03-21-2022 Office/Clinic Note-Physician [id number]. [id number] 4#1.00CD:127 [facility] Orders Officeon 03-21-2022 Orders Office [id number]. [id number] 9#1.00CD:127 [facility] Patient Correspondenceon Patient Correspondence [id number]. [id number] 5#1.00CD:127 [facility] Patient Correspondence [id number]. [id number] 3#1.00CD:127 [facility] Patient Correspondence [id number]. [id number] 5#1.00CD:127 [facility] Patient Correspondence [id number]. [id number] 5#1.00CD:127 Normal [facility] Patient Correspondence [id number]. [id number] 7#1.00CD:127 Normal [facility] Patient History Officeon Patient History Office [id number] 6#1.00CD:127 Normal [facility] Insurance Correspondence Off iceon 03-15-2022 Insurance Correspondence Office [id number] 6#3.00CD:127 Normal [facility] Coding Summary.on 03-09-2022 Coding Summary. CD:[id number] Gh0bWw+PGhlYWQ+PE1FV TRrS11dzXEykH3MG8cYW U3TQXQOIRLXTV0VOY2bz SB2MGtyR6McnsJr FguivCNpIU04IDp7JZH2 hOxoXBdbdH8zpQTfI2m9 GiMaLX49wM71BTvpEOOv LgL2YeDydjulpHJv Y9rfStWftZPyBve+PHRh YmxlIHdpZHRoPScxMDAl ZiVctBqaZM9qSi9dTZJo LWNvbGxhcHNlOiBj u1lfNGDeTMnrOO1xkXhw B1RdbXK6DVZxs4i0Gb03 dHI+IVXuLSR5gZfhSAjo y449GxSqc8fmNZQ6 cVPxUJpgACC6M22dw0Q0 OHZsQRHxJYM4jBY8xN7p rIttwiavE4XgcUCrDlD4 TKN9pYBamC8szTvs xkfhdU6jPjq+L34YOA4L WJTEFV7NBtb6Z7IwAyjx dHI+PE68VUHoZP15hECd qBUoo8mqaFb4IxAq MMCbXYC9jHakFLqpc8Fu OKRpN95yvPYzl4S6MMOc jCqifSUhXkPduWP9dA2h OYirqbocy9ynztyf Mqlph0ddqo55gD95A10j RLcuDNCkWFJ8UNUmYLEx oEzakx1hkH3aXq3+IDxj l9pfh5mszBw8ClJl ROTbavKbeLtsIPW7q8Zp Zw80A0PobLqkx4MpYwf7 bu68uOXia0R6fAU5FRan XIPdeF5bEKrcIaC9 WJQhCqOyuG88hHSzKCps Dq5hcUtthNmdRS3pILXq zlzbAGQdtG9tUFTehAJt xUarSU5lNAXjbegn n947DeTlCVK5PVIhhUXp L4MptK7fReDxOCGqTTTc L8KicLUoQNtpW906YXhz UdL5KIIrsdDaZ5Ny ZSPkvCatKyG4r5G8Ap1T a4YeefubMIG9NTwvTSOk LwH9ZmMqOqI1U3SvXnc3 YSQnjIigAV3dT7Lh CMOwuuemtfqpzUZ2VOIp YGTauH63tWIxFPmzFe9w a3C5l212RMHkNIZccY49 Tb3xiRelWHTqrWYF bT5fiursj7oyffcrErBw DGFxCTp1YUc9MYNafZhb MnAoCZT9XuW5BIU7tASf bD6isVtlkqpqqJ0u Oyc+K50fnK5hGVF0WFZ5 fppwFBOtozLwLC07BK95 U0DyAucpmWZmmKL+PGRp ksRwpUhnYN6cFoVy j4wcn4PoLWntB2TuWXTg WMgpItm9APMuHKV7gWK5 bV9jBVZvPCiye5C0hKI6 Z4IdjvQjys0oe1pb QNZpPWtmG03sfXWmr1N0 NDRwgEV6JQRqlLniAnGq bO35Tju+QWSpkTkoa5Oj Wxguj0lea4nlsQz1 IjMwJSIgdmFsaWduPSJ0 v0HvOl11U27nPVteZWTn OJVnIGWoHNHvjAejye4x eS7qLh5+PGNvbCB3 oTT7cL9eMLApXgS6ZUsi J693EyCwgILgGqeea0qm m1ausMh8LqTfIAFfwxQj pZbzGZT7i2RyJx68 O59cBYfiBEHtTJSrLYRe AJJpeYcaft4tfD7bEg3+ TV3jr2mzsm72fP80wDR+ FRYoNBU3qZeiYQmf XXOghI2vIJbkObB9TOUw UrRrgX74hDWrVQsuWo4b bFtymDxqSB6cTCQtciud f589BiErp1tzVAJa kDSyPIodHRF7M31nk8F9 TTXrFZBnVDY5fII4rY9q bGlnbjogbGVmdDsgdmVy wPjyETelNUxfH403 IHRvcDsnPlBhdGllbnQg PaJsCFm8U1PvVxy1NWHy hPnpHM2zdPKdIHllGr0s gJswuJbsAY5yBLJn slqqj078TkQks7mpPIJw hLOxOWskUKI5E55qy2I8 KMSaWLWwKKR4dPF0rC7y bGlnbjogbGVmdDsg urJpsIamVTqiDWxwD016 IHRvcDsnPkJpcnRoIERh wTH3CZ79YQ95iOUyf8W7 wAI8G1TlXMHhbjsn pcxvjKV1OMPmDMNnqZ15 Nn6miCblAq0nJANgBJJ5 GGVkaUPpR0NogZ7zEnGn XUZbQTHpK6TreWNk THdmJ969EJexPlA9DPUr mkKpI1GcXEMsrCqwLhC0 a0O9Qz4YX8U0MN24QD39 sUZvh8F0iLM7G5Nk GJIkarjwuvlbmAE3HVYw VYWqyH68Xp2giLzjZv7y NEEbESM9GTWvqTVjO7Xe bL8bWlAtBEZlDAEo C6EnsIIqOQlzP479ZCzj WpM8EKKrwhQcS6DdGNRc gUvpTkI1f8C4Qb9ZMWm6 JH62BH86mTNqz9F9 vJA5Y0McLZUpkcendpkf kBZ9VORkWKBcaQ62Pd7h gIbcBo3oBUDvBCJ7THRq xOSlX7GaeI1yHqCq JSOfPCUoV6UlaVRsALbe T451NLvnFbR4TXGftlPg N8YkZWNksMkhRuE2m7Q1 Da0IRKBpVZ73WOX0 cCI9XV43GL05T8NtCazo dGFibGU+PHRhYmxlIHdp ZHRoPScxMDAlJyBzdHls FN8hYh7uVJDoLKTq rSgbcGYsSjHaf7erVRAs GDewSF6ouHtkA9VdzVZ6 MGIld9q2Bw61H91nV0Sf dXA+JKPagSM3lYA9 iL8zWeNwMvJ8XWabG704 PnMazHQqVxmtj2izu0gp iXl3RzU1RTFtivHayZyv AKR8h5DxKk41B88h IHdpZHRoPSIxNSUiIHZh tOnjpp9qeQ1bRc0+PGNv bJQ9jYV6vB5pMrWaQkD3 QWbiG007AxUdnMRn Cumbq6bac8cioDz9YzMj AMInxjAhdCfhVZK1g5Mf Om24S4SddUkoe9PvHbl6 vt54aFUfx4S8zBB5 M0FfXFBogveaaHNixAqo KZ9rELBrxerrWQStkL5q MEDdC3t4CvAsUpN9VHhs L0FwdvX8MELprIDt ZZdbDZJ1J14oy2H3ETWi IXWsLSX9xCU8eC2icSuk bjogbGVmdDsgdmVydGlj ZEegWEtoA566ZITo gBbdYGZvdQ4lRRAqoDWu gWhoNR7hJLLybaljFo3H C3BKEdxiJR5NAYiMSLj6 I3UsJkm7MBSlfRnv WD2yfXCjTZfgLg3fsWub qEpwWG3dRWJjbjcyARWl fR6kFAKrvKMitDwfDR4f WYHplzaba951HzIo GMD6RENwvSSgA7RtnB2k CcObLBQpVVSlB4OmwCSg VWdxM934OPxlVwF0GZBy scTfE8KsCNHapKqj DmM1t9Z6Fh5sCZ3aES1c OBn8ZZ52VL98iHOys9X7 rRD6L5BhKGJlvmobdthy nWC8WHDgIAIgvF07 bRQbMUhtJa4sp6P9i596 LHDuBLXozQ42El2jlTps KBKvhPVQhA0ggiyrt7nk cjogIzAwMDAwMDt0 CSx7HQCqnDhsIeHgGGH1 JeZ5DTD2lQVkjA7fwAyd lwenmK9eNnn+NDQgWWVh mgD0J7BvRne3CRDf hOmvMW7deQBbVDthAo0e wHjmyRjnDQ1iUZQkakal EZMyuJ6sVUTxyWIltXxw TH6eNCErnifwi696 NhKcASI6VMEmyTMoX3Ed bW5gThMzSCLgZUXhR1Hp gENfBRvpX070CXrjXuO5 KSLgeoNjW1WoINHa mCcfPyA6a4E4Vj4EPW0h pFM4C2DfZeu6MZAgmIfy VF6qvQWaDVmtLa0xuJmz pRaxYO1iNRTbkmbd UATsuU0pYKHxuWZznVhp TU6dEXRntpxtn707MwSl LBZ5VHWxnNBhN3JtrH0g IcTgLEZlYMPyU2Ph jMMeYMwxT365PAslQoM8 ILVdvqJhQ3IaMMNqlBtd IxM8u1T3Ri3PbPWqCEDf CJ79BF76AK78S7Oi PjwvdGFibGU+PHRhYmxl IHdpZHRoPScxMDAlJyBz aDdwSB2nBa4gDXMpZSMq bKvufWGcUzCkw2ve PIXlFHhqJM8otNueO7Hc sKG0RCAym3c0Ld54J50p E0KupIN+XOGeiKF2jJJ0 yJ6hZwWnVqB9VAic C086VhXmtSOoZxnlh4mu e1cvmBp6BaHuURXrbaRc tTjrMCN0k3TjCb77M96i IHdpZHRoPSIyMCUi WLMobWddhz2usY8wSs4+ SGKfgHF8gFH6hB8mRhCc OdY3PCcoK324OxOvwUOh ZhalB08nC8OjdGS+ IZUfBmz0NOQxcMkdVA9o lUExTHqaPt4lQVV9WnUh ExGlGDgwX0LwSUIauimr bvkvmFN5TDIpXKSr mA25Gf9nkEtwOm2iNYMg DFI4AIIerHBgO5GccX4i MkFcVATgPJZxN8WqtFXx CDvuK725KZtzDwT8 CGMoyuWcJ5ElGEPqmUvd MtT1x3Q7Te7SfIpitDSd AY4sVoFeBRv0K3QtZnn4 NMVgcUsrSZ2jeVHx UDxkSb9kwNzuwXatCB8o FNExphpnz995MjGqd7jm ZCMnlOLkEOvtKCK8U87x o5B8JRQbNLEsSBT9 hZJ5hQ1xgEiyzmtjoZJe dDsgdmVydGljYWwtYWxp X604FPSgqUihKvBEPha4 S5LvUci9JCFjfBec QG7mdELmDFkwYf5hzEmv rVwdYZ4yFUOldajou869 XpDrj8tzDFQqlTJaPIkm FAF1P61as1Y5CAWj PPZeEIZ1zYO3gL9bmUda bjogbGVmdDsgdmVydGlj RUptVSbgN355DNDxtQgy Zi4CVnj2F9AvDsj1 UKNnyHsrGN3ezCMlFNcv Wi7rwRqziPbpQU2aARUi pbuwc771NgRhs0brGKSf pWGwYMfrAKW2J41t m9Z3BRXjCVDkOPB3sYL4 qL4rqXhzakpwtQAkqChy jqEkcFrbOTulTAtxJ921 IHRvcDsnPlBheWVy OjwvdGQ+CM78xl12M0Ix GxtxUfc6ADMvAUW9kBK2 tT2yWOLpERgeo8H7wVR4 V5HskdLbtt6qt3yo YXBz (more content not included)... Normal [facility] Consent for Treatmenton 02-12 Consent for Treatment [id number] #1.00CD:127 [facility] HIPAA Forms Officeon 022 HIPAA Forms Office [id number] 6#1.00CD:127 [facility] Legal Correspondence Officeo n 03-01-2022 Legal Correspondence Office [id number]. [id number] 1#1.00CD:127 [facility] Office/Clinic Note-Physician on 03-01-2022 Office/Clinic Note-Physician [id number]. [id number] 4#1.00CD:127 [facility] Orders Officeon 03-01-2022 Orders Office [id number]. [id number] 3#1.00CD:127 [facility] Outside Records Officeon Outside Records Office [id number]. 210 [id number] 0#1.00CD:127 Normal [facility] Radiology Outside Office Finance Clerk yon 02-25-2022 Radiology Outside Office Copy [id number] 3#1.00CD:127 Normal [facility] Referrals Officeon 2 Referrals Office [id number] 0#1.00CD:127 Normal [facility] CNPNon 09-28-2021 CNPN Telephone ([facility]) OWEN GONZALEZ ([id number]) 1975 F Date Time Provider Department 09/28/21 MATHEW ASH [facility] During your visit today, we recorded the following information about you: Aria Yanes 09/28/2021 9:55 AM Signed Provider unavailable. Appointment rescheduled. Called and spoke with patient directly to confirm. Patients initial consult was scheduled for [facility], then she had it moved up to September due to her pain, now her appointment has been rescheduled for next available in December and added to the wait list. Patient is willing to go to any location for a sooner appointment. Is there any possible way to get her in sooner appointment. Please advise. Robbi Wilson RN 09/28/2021 11:01 AM Signed Patient on wait list for sooner appointment. PATRICIO Vasquez [facility] 10/04/2021 2:32 PM Signed Patient calling to see if anything sooner opened up with Dr Ash. (nothing sooner than 12/30/21) She has a special needs child and these issues are affecting her everyday life so much. Please keep her in mind if there is any way to add her on to Dr Ash - willing to go to any location. Can be reached at [phone]. Robbi Wilson RN 10/04/2021 2:59 PM Signed Pt placed on wait list. Robbi Wilson RN Allergies As of Date: 09/28/2021 (Not on File) Date Reviewed: Never Reviewed Reason for Visit: Appointment Rescheduled [1024] Problem List As Of Date: 09/28/2021 (None) Encounter Status:Closed by ARIA YANES on 01/27/22 Normal [facility] Vital Signs Date Time Vital Sign Value Performing Clinician Facility 06-12-2023 12:45-0500 Body height 166.37 cm bttn Other [facility] Other 06-12-2023 12:45-0500 Body mass index (BMI) [Ratio] 46.44 kg/m2 bttn Other [facility] Other 06-12-2023 12:45-0500 Body weight 128.55 kg bttn Other [facility] Other 06-12-2023 12:45-0500 Diastolic blood pressure 79 mm[Hg] bttn Other [facility] Other 06-12-2023 12:45-0500 Respiratory rate 18 /min bttn Other [facility] Other 06-12-2023 12:45-0500 SaO2% (BldA) [Mass fraction] 96 % bttn Other [facility] Other 06-12-2023 12:45-0500 Systolic blood pressure 130 mm[Hg] bttn Other [facility] Other 05-24-2023 10:30-0500 Body height 165.1 cm Tami Guthrie Other [facility] Other 03-29-2023 09:00-0500 Body height 165.1 cm Tami Yimir Other [facility] Other 03-29-2023 09:00-0500 Body mass index (BMI) [Ratio] 44.06 kg/m2 Tami Ajacher Other [facility] Other 03-29-2023 09:00-0500 Body weight 120.11 kg Tami Phelpsbenitaacher Other [facility] Other 03-29-2023 09:00-0500 Diastolic blood pressure 70 mm[Hg] Tami Ajacher Other [facility] Other 03-29-2023 09:00-0500 SaO2% (BldA) [Mass fraction] 96 % Tami Ajacher Other [facility] Other 03-29-2023 09:00-0500 Systolic blood pressure 128 mm[Hg] Tami Ajacher Other [facility] Other 02-10-2023 09:00-0400 Body height 165.1 cm Tami Yimir Other [facility] Other 02-10-2023 09:00-0400 Body mass index (BMI) [Ratio] 42.76 kg/m2 Tami Ajacher Other [facility] Other 02-10-2023 09:00-0400 Body weight 116.58 kg Tami Ajacher Other [facility] Other 02-10-2023 09:00-0400 Diastolic blood pressure 74 mm[Hg] Tami Guthrie Other [facility] Other 02-10-2023 09:00-0400 SaO2% (BldA) [Mass fraction] 97 % Tami Guthrie Other [facility] Other 02-10-2023 09:00-0400 Systolic blood pressure 118 mm[Hg] Tami Guthrie Other [facility] Other 12-27-2022 09:05-0400 Diastolic blood pressure 89 mm[Hg] MD Dileep Laboy Work Phone: [facility] 12-27-2022 09:05-0400 Heart rate 96 /min MD Dileep Laboy Work Phone: [facility] 12-27-2022 09:05-0400 Respiratory rate 16 /min MD Dileep Laboy Work Phone: [facility] 12-27-2022 09:05-0400 SaO2% (BldA) [Mass fraction] 99 % MD Dileep Laboy Work Phone: [facility] 12-27-2022 09:05-0400 Systolic blood pressure 146 mm[Hg] MD Dileep Laboy Work Phone: [facility] 12-27-2022 07:44-0400 Body height 162.56 cm MD Dileep Laboy Work Phone: [facility] 12-27-2022 07:44-0400 Body weight 113.39 kg MD Dileep Laboy Work Phone: [facility] 03-21-2022 09:11-0500 Diastolic blood pressure 84 mm[Hg] Phill Hay [facility] 03-21-2022 09:11-0500 Heart rate 102 /min Phill Hay [facility] 03-21-2022 09:11-0500 Mean blood pressure 96 mm[Hg] Phill Bharti [facility] 03-21-2022 09:11-0500 Respiratory rate 16 /min Phill Hay [facility] 03-21-2022 09:11-0500 Systolic blood pressure 121 mm[Hg] Phill Hay [facility] 03-01-2022 11:01-0400 Diastolic blood pressure 78 mm[Hg] Candelario Burns [facility] 03-01-2022 11:01-0400 Heart rate 92 /min Candelario Burns [facility] 03-01-2022 11:01-0400 Mean blood pressure 94 mm[Hg] Candelario Burns [facility] 03-01-2022 11:01-0400 Respiratory rate 12 /min Candelario Burns [facility] 03-01-2022 11:01-0400 Systolic blood pressure 127 mm[Hg] Candelario Burns [facility] Encounters Encounter Date Encounter Type Care Provider Facility Start: 06-26-2023 End: 06-26-2023 ambulatory Tami Guthrie Other [facility] Other Start: 06-26-2023 Telephone encounter Tami Ramires [facility] Start: 06-12-2023 End: 06-12-2023 ambulatory Tami Guthrie [facility] Other Start: 06-12-2023 Nutrition therapy Israel Naranjo [facility] Start: 06-12-2023 Telephone encounter Tami Ramires [facility] [employer] Start: 05-24-2023 End: 05-24-2023 ambulatory Tami Guthrie Other [facility] Other Start: 05-24-2023 Office outpatient visit 10 minutes Tami Guthrie [facility] Start: 05-16-2023 End: 05-16-2023 ambulatory Tami Guthrie Other [facility] Other Start: 05-16-2023 Telephone encounter Tami Ramires her [facility] Start: 05-01-2023 End: 05-01-2023 ambulatory Tami Guthrie Other [facility] Other Start: 05-01-2023 Office outpatient visit 15 minutes Tami Guthrie [facility] Start: 04-11-2023 End: 04-11-2023 ambulatory Tami Guthrie Other [facility] Other Start: 04-11-2023 Telephone encounter Tami Ramires [facility] Start: 03-30-2023 End: 03-30-2023 ambulatory Leticia Hansen Other [facility] Other Start: 03-30-2023 Telephone encounter Leticia Hansen [facility] [employer] Start: 03-29-2023 End: 03-29-2023 ambulatory Tami Phelpsfantasma Other [facility] Other Start: 03-29-2023 Office outpatient visit 25 minutes Tami Guthrie [facility] Start: 03-09-2023 End: 03-09-2023 ambulatory Tami Phelpsjoeishaan Other [facility] Other Start: 03-09-2023 Telephone encounter Tami Phelpscyril her FPG [facility] Start: 03-06-2023 End: 03-06-2023 ambulatory Tami Phelpsojeishaan Other [employer] Other Start: 03-06-2023 Telephone encounter Tami Phelpscyril her [facility]PG [employer] Start: 02-10-2023 End: 02-10-2023 ambulatory Tami Jerri Other [employer] Other Start: 02-10-2023 Office outpatient visit 25 minutes Tami Jerri FPG [facility] Start: 12-27-2022 End: 12-27-2022 ambulatory Imad Asaad Facility:[facility] Start: 12-27-2022 End: 12-27-2022 Admission to same day surgery center MD Dileep Laboy Work Phone: [facility] Work Phone: Start: 12-27-2022 End: 12-27-2022 ambulatory MD Dileep Laboy Work Phone: [facility] Work Phone: Start: 12-23-2022 End: 12-23-2022 ambulatory Imad Asaad Other [employer] Other Start: 12-23-2022 Telephone encounter Imad Asaad [facility] Start: 08-19-2022 End: 08-19-[address] DILEEP LABOY . Facility: Start: 03-21-2022 End: 03-22-2022 ambulatory Phill Hay Facility:[facility] Start: 03-21-2022 End: 03-21-2022 Pain Management Phill Hay [facility] Start: 03-01-2022 End: 03-02-2022 ambulatory Candelraio Burns Facility:[facility] Start: 03-01-2022 End: 03-01-2022 Patient encounter procedure Candelario Burns [facility] Start: 01-19-2022 End: 01-19-[address] DILEEP LABOY . Facility: Start: 09-28-2021 Telephone encounter Mathew Ash MD Work Phone: Gastroenterology Comment on above: Appointment Reschedu led Procedures Date Procedure Procedure Detail Performing Clinician Start: 12-27-2022 Esophagogastroduodenoscopy MD Dileep mccyo Work Phone: Start: 04-28-2017 Hysterectomy Candelario Burns Comment on above: Robotic-assisted hysterectomy, left salp ingo-oophorectomy, right salpingectomy, lysis of adhesions Start: 09-04-2013 laparoscopic tubal with cautery, fulguration of endometriosis, removal of IUD Candelario Burns Colonoscopy Candelario Burns Esophagogastroduodenoscopy T awilda Burns Laparoscopic cholecystectomy Candelario Burns Plan of Treatment Date Care Activity Detail Author Start: 12-27-2022 [facility] Start: 01-13-2022 Influenza vaccination INFLUENZA (#1) [facility] Start: 2017 Mammography MAMMOGRAM [facility] Start: 08-22-2007 HPV TESTING HPV TESTING [facility] Start: 1998 PAP TESTING PAP TESTING [facility] Start: 1996 Urine microalbumin profile DTAP,TDAP,TD (1 - Tdap) [facility] Start: 08-22-1995 HEPATITIS C SCREENING HEPATITIS C SC REENING [facility] Start: 08-22-1995 HIV SCREENING HIV SCREENING [facility] Start: 1989 Adult depression screening assessment DEPRESSION SCREENING [facility] Start: 02-20-1978 COVID-19 VACCINE (#1) COVID-19 VACCI NE (#1) [facility] Start: 1977 HEPATITIS B (1 of 3 - 3-dose series) HEPATITIS B (1 of 3 - 3-dose series) [facility] Immunizations Immunization Date Immunization Notes Care Provider Mayur angmirta 01-09-2014 influenza, injectabl e, quadrivalent, preservative free Imad Asaad Other [employer] Other Payers Date Payer Category Payer Self-pay [id number] 2021 [facility] Health [facility] [id number] 2021-2021 [facility] [id number] [place] [address] Open Access [id number] 1977 Unknown [id number] 1977 Unknown [id number] 1977 Unknown [id number] 1977 Unknown [id number] 93 1959 Self-pay [id number] 1959 Unknown [id number] Medicaid [facility] [id number] Private Health Insurance [facility] [id number] Unknown [id number] 31 Unknown [id number] 31 Social History Date Type Detail Facility Tobacco smoking status NHIS Tobacco smoking consumption unknown [facility] Start: 1975 Sex Assigned At Not on file [facility] Start: 10-10-2021 End: 10-20-2021 Exposure to SARS-CoV-2 (event) Not sure [facility] Start: 11-29-2019 Tobacco smoking status Light tobacco smoker (finding) [facility] Sex Assigned At Female [facility] Start: 12-27-2022 Tobacco smoking status NHIS Smoker (finding) [facility] Start: 1975 Sex Assigned At Female F [facility] Goals Date Patient Goal Desired Activity /State Functional Status Date Assessment Result Facility 03-21-2022 Functional Status N/A [facility] 03-01-2022 Functional Status N/A [facility] Clinical Notes 04-14-2016 to 06-26-2023 Note Date & Type Note Facility 06-26-2023 Evaluation note Encounter Date Diagnosis Assessment Notes Jun, GERD (gastroesophageal reflux disease) (ICD-10 - K21.9) Jun, Spondylosis of cervical region without myelopathy or radiculopathy (ICD-10 - M47.812) [facility] Other 01-29-2024 Evaluation note* Encounter Date Diagnosis Assessment Notes Treatment Notes Treatment Clinical Notes May, Severe obesity (BMI >= 40) (ICD-10 - E66.01) Consultation date 06-12-2023, weight (pounds): 283.4Plan is to take a weight centric approach to patient care in the treatment of excess adiposity and patient's weight related comorbidities.-Discuss ed treatment options including lifestyle interventions, such as calorie reduction and physical activity, and use of medications as an adjunct to amplify adherence to healthy behavior change-Discussed benefits, risks and side effects of medication. After informed discussion, patient would like to proceedOrders:-Initiat e compounded semaglutide 0.3 mg once weekly and titrate up as tolerated to 0.6 mg once weekly -Son is also a patient on compounded semaglutide -Patient reports an ambiguous history of pancreatitis. She states she was diagnosed in the ER but PCP and gastroenterology refuted diagnoses -I informed patient of side effects and contraindications of GLP-1 RA. She would like to continue -Food is medicine program with son -She has as a child in hospice-Follow up in clinic in 4 weeksThis note was created with voice recognition software. Please excuse errors in vocational nurse lvn. May, Dietary surveillance and counseling (ICD-10 - Z71.3) Discussed in detail high-protein, high-fiber, low-fat nutrition plan favoring calorie deficit and lean tissue mass preservation. -Patient experiences bloating with several foods. Recommend RD appointments -She is meeting with gastroenterology at [facility] May, Exercise counseling (ICD-10 - Z71.89) Absolute HGS at time of consultation (pounds): 76.6Discussed in detail exercise interventions to promote lean tissue mass preservation during calorie restriction. -Meet with Analia May, Food insecurity (ICD-10 - Z59.41) Food is medicine program May, Dyslipidemia (ICD-10 - E78.5) HDL-C 41, triglycerides 141, LDL-C 108 October 2021 May, JUANITO (obstructive sleep apnea) (ICD-10 - G47.33) Pending pickup of CPAP machine May, Other 48 minutes was spent reviewing patient specific healthcare information, interviewing, counseling, and communicating with the patient, and documenting clinical information. [facility] Other 01-11-2024 Reason for visit NarrativeWeight loss clinic referral- [phone] Other 01-10-2024 Evaluation note* Encounter Date Diagnosis Assessment Notes Treatment Notes Treatment Clinical Notes May, Unable to lose weight (ICD-10 - R63.8) Referral placed per pt request to weight loss clinic. May, GERD (gastroesophageal reflux disease) (ICD-10 - K21.9) May, Hiatal hernia (ICD-10 - K44.9) May, BMI 40.0-44.9, adult (ICD-10 - Z68.41) May, Other The patient was seen per scheduled virtual care visit in their home and my location (provider) is in the family practice office setting. The staff involved in visit was myself, Tami Guthrie DNP, CEMENT KILN OPERATOR, SAWMILL MANAGER (provider) . Time spent with patient was approximately 6 minutes. [facility] Other 01-02-2024 Evaluation note* Encounter Date Diagnosis Assessment Notes Treatment Notes Treatment Clinical Notes May, Bloating (ICD-10 - R14.0) May, Alternating constipation and diarrhea (ICD-10 - R19.8) May, GERD (gastroesophageal reflux disease) (ICD-10 - K21.9) May, Hiatal hernia (ICD-10 - K44.9) [facility] Other 12-18-2023 Evaluation note* Encounter Date Diagnosis Assessment Notes Treatment Notes Treatment Clinical Notes Apr, Bronchitis (ICD-10 - J40) Discussed diagnosis with patient. Patient to start Zithromax. Patient to take Zithromax daily with food as prescribed. Finish entire course of antibiotic. Proair inhaler sent today for patient to use PRN cough/wheezing/short ness of breath. Increase fluids and rest. Uxab-jhd-[id number] antipyretics as needed. Warning signs and symptoms reviewed with patient today. Patient to go immediately to the ER should she experience any of these. Patient to notify office should her symptoms persist and not improve. Patient verbalizes understanding and agrees to treatment plan. Apr, Other The patient was seen per scheduled virtual care visit in their homeand my location (provider) is in the family practice office setting. The staff involved in visit was myself, Tami Guthrie DNP, CEMENT KILN OPERATOR, SAWMILL MANAGER (provider) . Time spent with patient was approximately 10 minutes. [employer] Other 11-16-2023 Evaluation note* Encounter Date Diagnosis Assessment Notes Treatment Notes Treatment Clinical Notes Mar, Cigarette nicotine dependence without complication (ICD-10 - F17.210) Mar, Chronic cough (ICD-10 - R05.3) Mar, Mild intermittent asthma without complication (ICD-10 - J45.20) [facility] Other 11-15-2023 Evaluation note* Encounter Date Diagnosis Assessment Notes Treatment Notes Treatment Clinical Notes Mar, Chronic cough (ICD-10 - R05.3) Discussed with pt recommend a repeat pulmonary function test as she is a continued smoker with asthma. Does have this chronic cough with intermittent wheezing at night. Referral also made to pulmonology for a second opinion regarding treatment, as she only uses an albuterol rescue inhaler. Does use this typically every night. Mar, Mild intermittent asthma without complication (ICD-10 - J45.20) Mar, Early satiety (ICD-10 - R68.81) Discussed differential diagnoses in office today. Due to patient's reported pain of right upper adominal pain and left lower quadrant pain that become more severe with eating, causing nausea and vomiting at times with prescenece of hital hernia with reboudn tenderness on exam _ _ we have used shared decision-making process to agree upon a further work-up/ with CT scan of the abdomen and pelvis. . Made patient aware of symptoms will warrant immediate evaluation by emergency department. Will call with results and further plan of care. Pt verbalizes understanding and agrees to plan of care. Mar, Abdominal pain (ICD-10 - R10.9) Mar, Abnormal weight gain (ICD-10 - R63.5) Mar, Hiatal hernia (ICD-10 - K44.9) Mar, Vomiting without nausea, unspecified vomiting type (ICD-10 - R11.11) Mar, Family history of pancreatic cancer (ICD-10 - Z80.0) Mar, Bloating (ICD-10 - R14.0) Mar, Left lower quadrant pain (ICD-10 - R10.32) Mar, Rebound tenderness (ICD-10 - R10.829) Mar, Cigarette nicotine dependence without complication (ICD-10 - F17.210) We discussed possible complications of smoking including risk of heart disease, stroke, lung disease, and increase risk of cancer. Your goal is to quit smoking. The availability, risks, and benefits of medication used to treat nicotine addiction as releveant to you have been discussed. We are working together to achieve these goals with the following plan; barriers to these goals have been discussed. You have been given relevant education handouts and a summary of your care plan. Your next follow-up visit for this problem is six months, we will continue to ask progress for quitting and willingness to quit at each appointment. [facility] Other 10-26-2023 Evaluation note* Encounter Date Diagnosis Assessment Notes Treatment Notes Treatment Clinical Notes Feb, Other OARRS checked l ast filled 04/2022 [facility] Other 09-29-2023 Evaluation note* Encounter Date Diagnosis Assessment Notes Treatment Notes Treatment Clinical Notes Jan, Moderate episode of recurrent major depressive disorder (ICD-10 - F33.1) Referral placed to psychiatry per pt request for further treatment of depression/anxiety/ Jan, Non-seasonal allergic rhinitis due to other allergic trigger (ICD-10 - J30.89) Advised patient to continue using OTC Zyrtec once daily. and will add Singulair. Also encouraged patient to begin using OTC Nasacort or Flonase nasal spray as directed. Symptoms are consistent with allergic rhinitis. No signs of bacterial infection on exam today. Educated patient that allergy symptoms are not always caused by pollen but can also be caused by dust, mold, and pet dander. Wash linens and vacuum often to decrease the amount of dust and dander the patient is exposed to. Warm salt water gargles several times daily and OTC Cepacol sore throat lozenges may help with sore throat. Use Tylenol/ibuprofen as directed for general discomfort. Patient should follow up if symptoms persist or worsen. Patient verbalized understanding and agreement with tx plan. Jan, Fibromyalgia (ICD-10 - M79.7) Referral placed to rheumatology for further options for treatment of fibromyalgia [facility] Other 08-15-2023 [facility] Evaluation + Plan noteExtracted from: Title:NPV Author:Phill Hay MD Date :03/21/22 Impression and Plan 46-year-old female with severe right-sided shoulder and arm pain. I suspect the patient has a rotator cuff injury. Patient also may have an element of cervical radiculitis versus brachial plexus related pain. The majority of her pain does seem to be shoulder related at this point. Regular use of high-dose meloxicam as well as a guided home therapy program have not provided adequate relief. I recommend MRI without contrast of the right shoulder for further evaluation. I also suggested starting a formal physical therapy and referral to orthopedics for further evaluation. The patient and I discussed the likely etiologies of her pain. She will return to clinic after the MRI has been complete. Patient agrees with plan of care. [place] automated Rx report was reviewed and is consistent with medications listed as prescribed. [facility]10-22-2022 NoteHOSPITAL REGULATIONS: All Positive and Important Negative Findings Shall Be Recorded Date of Consultation: 03/01/2022 Attending Physician: Dileep Laboy M.D. Consulting Physician: Candelario Burns M.D. CHIEF COMPLAINT:Right p[posterior shoulder, right arm pain. HISTORY OF PRESENT ILLNESS:A 46 year old female, right-hand dominant. 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 Januaryhe awoke with significant posterior shoulder and right arm pain. She states since that time she has not been able to function with her right arm. She states she felt like she did something caring for her child the day before but since that time has not been functional. She states she received a Medrol Dosepak which did not help her symptoms. She has an underlying diagnosis of fibromyalgia and presently taking gabapentin, Tramadol and Tylenol. She is a three-quarters pack per day smoker. Deniesany left-sided symptoms. Denies any clumsiness in her hands. Denies any clumsiness in her gait. Denies any bowel or bladder symptoms. PAST MEDICAL, PAST SURGICAL, MEDICATIONS, ALLERGIES, SOCIAL HISTORY, REVIEW OF SYMPTOMS AND FAMILY HISTORY: Please refer to the scanned new patient questionnaire for these. PHYSICAL EXAMINATION: General: She is alert and oriented x3, in mild distress. Lower extremities: She arises from a seated position without difficulty. She can heel walk, toe walk and tandem walk. She can get on and off the examination room table without difficulty. 5/5 all muscle groups bilateral lower extremities. Sensation is globally intact to light touch L2-S1 dermatomes. Deep tendon reflexes are normoactive and equal in her knee jerk and ankle jerk. She has no clonus.Full non-tender range of motion of bilateral hips, knees and ankles. Upper extremities: Very minimal range of motion of her right shoulder compared to her left. Left thumb is about T7. Right thumb is just posterior to her greater trochanter. Right upper extremity is difficult to examine secondary to her debilitating pain. Distally everything appears to work. She is n eurologically intact in her left upper extremity. Spine: Cervical spine range of motion is fairly full and non-tender. INVESTIGATIONS: Magnetic resonance imaging of her cervical spine performed 08 February 2022 shows midline to right-sided C4-5, C5-6 and C6-7 disc complexes causing varying degrees of foraminal stenosis more right-sided than left. IMPRESSION:46 year old female, about six week history of severe right shoulder pain unaffected witha Medrol Dosepak. Magnetic resonance imaging that does not correlate. PLAN:I told the patient I am not sure all of her symptoms are coming from her neck. This is almost a Parsonage-Fisher type syndrome and more of a plexopathy than a neck issue. I told her Medrol Dosepaks tend to help acute radiculopathies like this but the Medrol Dosepak did not affect her symptoms.I think she needs to get into pain management. I think she needs a magnetic resonance imaging of her right shoulder. If it is Parsonage-Fisher type syndrome she needs to see a shoulder specialist. She is very concerned because she has to care for her daughter and she states it will be very difficult for her to stop smoking. She can follow up with us juventino Burns M.D. lr Dictated: 03/01/2022 [id number] Transcribed: 03/01/2022 cc:Dileep Laboy M.D.[facility] HospitalComment on above:Result Comment: Electronically Signed By: Grant SHELDON, Candelario Armijo\.br\Date and Time Signed: 03/05/22 21:30 [id number] NotePROCEDURE: [employer] Signa HDXT 1.5 Sagittal T1, T2, STIR and axial T1 and T2 contiguous and cone down images through the cervical spine were performed without contrast administration. HISTORY: Right shoulder pain x 2 weeks, neck stiffness FINDINGS: Normal cervical vertebral body alignment. No vertebral body or posterior element fracture. No bone marrow edema. Normal vertebral body alignment. Mild inflammatory signal paraspinous soft tissues and neighboring facet joints C4-5, C5-6 regions. Normal posterior fossa contents and spinal cord. C1-2 through C3-4: Normal. C4-5: Normal disc volume. Right sided disc osteophyte complex, uncovertebral hypertrophy contributes to mild to moderate entry neuroforaminal zone stenosis. C5-6: Mild disc space loss. Small left, moderate right disc osteophyte complex, uncovertebral hypertrophy contributes to mild left, severe right mid and exit neuroforaminal stenosis. C6-7: Minimal disc space loss. Bilateral disc osteophyte complexes, uncovertebral hypertrophy contributes to mild to moderate bilateral entry neuroforaminal stenosis right greater than left. C7-T1 through T3-4: Normal. IMPRESSION: 1. Moderate to severe neuroforaminal stenosis, right C4-5 through C6-7. Report reported and signed by Leonel Fuentes on 02/08/2022 1050[facility] [id number] NotePROCEDURE: CT CERVICAL SPINE W/O DYE COMPARISON: None. HISTORY: Neck pain TECHNIQUE: Axial, Coronal, and Sagittal CT images obtained without IV contrast. Dose reduction techniques were achieved by using automated exposure control and/or adjustment of mA and/or kV according to patient size and/or use of iterative reconstruction technique. FINDINGS: PARASPINAL AREA: Normal with no visible mass. DISCS: Multilevel disc space narrowing most significant C5-C6 and C6-C7 BONES: Reversal of normal cervical lordosis. No acute fracture or spondylolisthesis. Mild to moderate posterior degenerative spondylosis C5-C7 OTHER: Negative. IMPRESSION: Reversal of normal cervical lordosis Mild to moderate degenerative spondylosis with suspected C5-C6 and C6-C7 foraminal stenosis Hyperdensity posterior to the right C4-C5 vertebral body. A disc herniation is suspected. MRI could be performed for further evaluation Electronically authenticated by: MAY WINTERS Date: 2022-01-19 08:41[facility]05-23-2022 Miscellaneous Notes* Telephone Encounter - Robbi Wilson RN - 10/04/2021 2:58 PM EDT Pt placed on wait list. Robbi Wilson RN * Telephone Encounter - Deanna Jimenes Pss - 10/04/2021 2:30 PM EDT Patient calling to see if anything sooner opened up with Dr Ash. (nothing sooner than 12/30/21) Shehas a special needs child and these issues are affecting her everyday life so much. Please keep her in mind if there is any way to add her on to Dr Ash - willing to go to any location. Can be reached at [phone]. * Telephone Encounter - Robbi Wilson RN - 09/28/2021 10:59 AM EDT Patient on wait list for sooner appointment. Robbi Wilson RN * Telephone Encounter - Aria Yanes - 09/28/2021 9:42 AM EDT Provider unavailable. Appointment rescheduled. Called and spoke with patient directly to confirm. Patients initial consult was scheduled for [facility], then she had it moved up to September due to her pain, now her appointment has been rescheduled for next available in December and added to the wait list. Patient is willing to go to any location for a sooner appointment. Is there any possible way to get her in sooner appointment. Please advise. [facility] History general Narrative - Reported* Type Description Date Medical History Vitamin D deficiency Medical History B12 Surgical History GALLBLADDER Surgical History TUBAL LIGATION Surgical History hysterectomy 04/2016 [facility] [employer] Other 12-01-2016 History general Narrative - Reported* Type Description Date Medical History Vitamin D deficiency Medical History B12 Medical History fibromyalgia Surgical History GALLBLADDER Surgical History TUBAL LIGATION Surgical History hysterectomy 04/2016 [facility] Other Evaluation + Plan note No data available for this section [facility] noteNo InformationNortGuthrie [facility] [employer] Other Evaluation noteNo assessment information available [facility] Work Phone: History and physical note Author Yao Aguilera [facility] December 27, 2022 8:26am Note Date/Time December 27, 2022 8: 26am [facility] [address] [place] [address] Gastroenterology H&P Signed Patient: Owen Gonzalez MR#: [id number] : 1975 Acct:[id number] Age/Sex: 47 / F Adm Date: 3 Loc: Room: Type: [facility] Attending Dr: Yao Aguilera MD Copies to: MD Yao Knight MD~ Date of Service: 12/27/2022 HISTORY & PHYSICAL: Patient's history with special attention to the cardiovascular, pulmonary systems and the current problem was reviewed with the patient immediately prior to the procedure. Present medications and doses reviewed in the EMR. Allergies and pertinent laboratory tests were also reviewedat this time in the EMR. The physical examination, as below, was then performed. Indication, assessment and HPI: 47-year-old female with chronic heartburn associated with intermittent dysphagia here for EGD PHYSICAL EXAMINATION Mouth and Pharynx : Moist mucus membranes, normal dentition Cardiac: Regular rate, regular rhythm Pulmonary: Clear to auscultation bilaterally, no wheezing Neurological: Alert and oriented x3, no focal deficits noted Abdomen: Abdomen soft, non-tender REVIEW OF SYSTEMS Constitutional: Denies malaise, fevers Cardiovascular: Denies chest pain, palpitations Respiratory: Denies shortness of breath, wheezing Gastrointestinal: Per HPI Genitourinary: Denies dysuria, polyuria Musculoskeletal: Denies joint swelling, joint stiffness Neurological: Denies numbness, tingling Integumentary: Denies rashes, skin lesions Endocrine: Denies fatigue, weight loss Written informed consent obtained from the patient. Risks (including but not limited to perforation, infection, bloating, bleeding, need for emergent surgeryand loss of life), benefits and alternatives explained and questions answered. The patient verbalized understanding. Based on history patient is an appropriate candidate for the procedure. Yao Aguilera M.D. Documented By: Yao Aguilera MD 12/27/22823 Signed By: <Electronically signed by Yao Aguilera MD> 12/27/22825 [facility] Work Phone: History general Narrative - Reported* Type Description Date Medical History JUANITO (obstructive sleep apnea) Medical History Todd's esophagus Medical History GERD (gastroesophageal reflux di sease) Medical History Endometriosis Medical History Vitamin D deficiency Medical History Anxiety and depression Surgical History GALLBLADDER Surgical History TUBAL LIGATION Surgical History hysterectomy 04/2016 [facility] Other History general Narrative - Reported* Type Description Date Medical History JUANITO (obstructive sleep apnea) Medical History Todd's esophagus Medical History GERD (gastroesophageal reflux di sease) Medical History Endometriosis Medical History Vitamin D deficiency Medical History Anxiety and depression Medical History fibromyalgia Medical History right foot tendonitis Medical History pancreatitis Surgical History GALLBLADDER Surgical History TUBAL LIGATION Surgical History hysterectomy 04/2016 Hospitalization History See above Hospitalization History child [facility] Other Hospital Discharge instructions No data available for this section [facility] Additional Instructions DISCHARGE INSTRUCTIONS FOR UPPER ENDOSCOPY WHAT TO EXPECT: - You may feel full, gassy or cramping after your procedure. In some cases, this may be from a few hours to a day. Walking may help relieve the discomfort. - Your throat may feel sore today from the scope that the doctor passed through your throat to visualize your stomach. Take a throat lozenge or suck on ice to ease the discomfort. - You may notice some streaks of blood in your sputum if the doctor has taken a biopsy. - You should begin to recover from anesthesia within 1 hour of the procedure, however may feel groggy for the next 24 hours. DO's AND DON'Ts: - Call your doctor right away if you have a hard abdomen, severe pain, vomiting or if you cough up large amounts of blood. - Call your doctor if you develop any rashes, hives or difficulty breathing. - If you take 81 mg aspirin for your heart it is safe to resume this medication. - If you take other blood thinner medications your doctor will instruct you when these can safely be resumed. - Do NOT drive for 24 hours. - Do NOT operate machinery such as power tools, lawn mowers, snow blowers, sewing machines, etc. for 24 hours. - Avoid alcoholic beverages and drugs for allergies, nerves, or sleep. - Do NOT stay alone. Do NOT leave your child unattended. - Do NOT make important personal or business decisions or sign any legal documents. - Eat solid foods and drink liquids in smaller amounts than usual until normal appetite returns. If you should experience an upset stomach, liquids high in sugar content (soda, Gold-Aid, non-acid juices) are recommended. - Do NOT smoke. - Do take it easy today. You need not stay in bed, but avoid strenuous activities such as jogging or working out. FOLLOW UP & RECOMMENDATIONS: -Increase omeprazole to 40 mg twice daily seconds before breakfast/dinner. -Please stop smoking -Repeat EGD in 12 weeks -minimize NSAIDs including Meloxicam -Follow up pathology -Notify the doctor if you have any problems. -Office number [phone]. [facility] Work Phone: Progress note No data available for this section [facility] for [facility]arrativeGENERAL SURG RE[facility] [employer] Other Reason for visit NarrativeReferral Tami Guthrie [facility] Other Summary Purpose Family History Relationship Condition Age at Onset Recorded Date/T monica family member Malignant neoplasm of colon Unknown family member Malignant neoplasm of stomach Unknown family member Malignant neoplasm of pancreas Unknown family member Malignant neoplasm of liver Unknown Not Specified Malignant neoplasm of skin Unknown Advance Directives Advance Directive Response Recorded Date/ Time Advance Directives No October 21 1:48am Chief Complaint and Reason for Visit Chief Complaint Gerd Reason for Referral Reason *FU 05/23 evaluate Diagnosis 1 Bloating (R14.0) Diagnosis 2 Alternating constipa tion and diarrhea (R19.8) Diagnosis 3 GERD (gastroesophage al reflux disease) (K21.9) Diagnosis 4 Hiatal hernia (K44.9 ) Referral Organization [facility] [employer] Referring Provider First Name Tami Referring Provider Last Name Jerri Referring Provider Specialty Nurse Pract itioner Referred Organization [facility] Referred Address [address], [place],[address] Referred Provider Specialty Gastroentero logy Referral Priority Routine General Notes Priti Summers 04:52:06 PM >received today, attahments made, notes locked, referral faxed Reason *Waiting for appt evaluate Diagnosis 1 Chronic cough (R05.3 ) Diagnosis 2 Mild intermittent as thma without complication (J45.20) Referral Organization [facility] [employer] Referring Provider First Name Tami Referring Provider Last Name Rohrbacher Referring Provider Specialty Nurse Pract itioner Referred Organization [facility] Pulmonary Dise ase Referred Provider Steven Machado Referred Address [address],[place],[address] Referred Provider Specialty Pulmonary Di seases Referral Priority Routine General Notes Priti Summers 02:24:08 PM >received today, sent P2P Reason evaluate Diagnosis 1 Fibromyalgia (M79.7) Referral Organization [facility] [employer] [facility] Referring Provider First Name Tami Referring Provider Last Name Rohrbacher Referring Provider Specialty Nurse Pract itioner Referred Organization [facility] Referred Provider Jude Martínez Referred Address [address] [place],[address] Referred Provider Specialty Rheumatology Referral Priority Routine General Notes Priti Summers 01:59:12 PM > Received fax, attachments made, note not locked Reason needs referral for M[facility] Diagnosis 1 Moderate episode of recurrent major depressive disorder (F33.1) Referral Organization [facility] Referring Provider First Name Tami Referring Provider Last Name Rohrbacher Referring Provider Specialty Nurse Pract itioner Referred Organization [facility] Referred Address [address] [place],[address] Referred Provider Specialty Psychiatry Referral Priority Routine General Notes Priti Summers 02:14:39 PM > Received fax, attatchments made, note is not locked Clinical Notes f: [id number] Additional Source Comments Source Comments (unrecognize d section and content) In the event this informatio n is protected by the Federal Confidentiality of Alcohol and Drug Abuse Patient Records regulations: The Federal rules restrict any use of the information to criminally investigate or prosecute any alcohol or drug abuse patient[facility] Reason for Visit (unrecogniz ed section and content) refill Reason Comments Appointment Rescheduled Care Teams (unrecognized sec tion and content) 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 Relationship Specialty Start Date End Date Dileep Laboy MD [address] [place] [address] PCP - General Family Practice 09/01/21 Team Status: Active Member Role Status Dates Dileep Laboy MD Primary Care Provider Active Team Status: Inactive Member Role Status Dates Dileep Laboy MD Primary Care Provider Active Yao Aguilera MD Attending Provider Active INFORMATION SOURCE (unrecogn ized section and content) DATE CREATED AUTHOR 02/11/2022 [facility] DATE CREATED AUTHOR AUTHOR'S ORGANIZ ATION 02/14/2022 [facility] dical Specialist DATE CREATED AUTHOR AUTHOR'S ORGANIZ ATION 03/29/2022 [facility] DATE CREATED AUTHOR AUTHOR'S ORGANIZ ATION [facility]/22/2022 [facility] DATE CREATED AUTHOR AUTHOR'S ORGANIZ ATION 06/23/2023 [facility] FOR RECORDS PERTAINING TO PATIENTS WHO ARE OR HAVE BEEN ENROLLED IN A CHEMICAL DEPENDENCY/SUBSTANCEABUSE PROGRAM, SOME INFORMATION MAY BE OMITTED. This clinical summary was aggregated from multiple sources. Caution should be exercised in using it in the provision of clinical care. This summary normalizes information from multiple sources, and as a consequence, information in this document may materially change the coding, format and clinical context of patient data. In addition, data may be omitted in some cases. CLINICAL DECISIONS SHOULD BE BASED ON THE PRIMARY CLINICAL RECORDS. [facility] [employer] provides no warranty or guarantee of the accuracy or completeness of information in this document.
--- NOTE | 2023-07-03 08:01 | US_ITS ---
The [address] [address] Patient Name: OWEN ZARAGOZA MRN: [id number] date: 1975 Sex: F Assigned Patient Location: US Current Patient Location: US Accession/Order Number: [id number] Exam Date: 07/03/2023 08:02 Report Date: 07/03/2023 09:18 At the request of: APRYL MONTENEGRO Procedure: US abdomen complete EXAMINATION: US abdomen complete HISTORY: Bloating R14.0, Hiatal Hernia K44.9, Vomiting R11.11 COMPARISON: No relevant comparison available. TECHNIQUE: High resolution sonographic examination of the abdomen was performed. FINDINGS: LIVER: Mild fatty infiltration. No significant masses. Duplex Doppler demonstrates normal waveform and flow within main portal vein, 38 cm/s. BILIARY: Cholecystectomy. No abnormal duct dilation. PANCREAS: No visible mass, abnormal atrophy, or ductal dilatation. SPLEEN: 1.8 cm hyperechoic area within spleen; calcification seen on prior CT study. Otherwise normal size and echotexture. KIDNEYS: No mass or obstruction. AORTA/VASCULAR: No aneurysm. OTHER: No anterior abdominal wall hernia or findings of concern in area of patient's bloating. US/US abdomen complete IMPRESSION: 1. No acute or suspicious findings to account for patient's symptoms. Electronically authenticated by: DESTINI MOHR Date: 07/03/2023 09:18
== END 2023-07-03 07:54 | disposition home or self-care (01) ==
LOC: US 07:54
PROVIDERS: PCP Nurse Practitioner Family; Visit Provider Nurse Practitioner Family
DX: R14.0 Abdominal distension (gaseous) (principal); K44.9 Diaphragmatic hernia without obstruction or gangrene; R10.829 Rebound abdominal tenderness, unspecified site; R10.32 Left lower quadrant pain; R68.81 Early satiety; R11.11 Vomiting without nausea; F17.210 Nicotine dependence, cigarettes, uncomplicated; R05.3 Chronic cough; J45.20 Mild intermittent asthma, uncomplicated
CPT/HCPCS: 71046; 76700

== ENCOUNTER 2023-12-15 12:35 | Outpatient (OUT) | payer OTHER, SELFPAY ==
--- NOTE | 2023-12-15 12:38 | MR_ITS ---
[address] [address] Patient Name: OWEN ZARAGOZA MRN: [id number] date: 1975 Sex: F Assigned Patient Location: MRI Current Patient Location: Accession/Order Number: [id number] Exam Date: 12/15/2023 12:45 Report Date: 12/16/2023 06:43 At the request of: SAE GREENFIELD Procedure: MR shoulder RT wo con EXAMINATION: MR shoulder RT wo con HISTORY: internal derangement of right shoulder ; chronic pain COMPARISON: No relevant comparison available. TECHNIQUE: A variety of imaging planes and parameters were utilized for visualization of suspected pathology. Imaging was performed without or with contrast as indicated by examination type. FINDINGS: ROTATOR CUFF REGION CUFF TENDONS: Mild increased signal intensity in the supraspinatus tendon indicates tendon degeneration and/or tendinitis. No donna tear is seen. CUFF MUSCLES: Normal appearing muscles. DELTOID: No significant atrophy or tear. LONG BICEPS TENDON: No abnormal signal, attrition, or tear. LABRUM/BICEPS ANCHOR SUPERIOR: No visible labral tear or biceps anchor pathology. ANTERIOR/INFERIOR: No visible tear or attrition. POSTERIOR: No posterior labrum abnormality. CAPSULE No visible capsular laxity or thickening. AC JOINT REGION AC JOINT: Mild osteoarthropathy with mild narrowing of the underlying coracoacromial arch. AC LIGAMENTS: Normal acromioclavicular ligament. CC LIGAMENTS: Normal coracoclavicular ligaments. ACROMION: Normal horizontal (Type I) configuration. SUBACROMIAL BURSA: Normal. No significant effusion. HYALINE CARTILAGE: Normal. No visible cartilage narrowing or focal defect. OTHER BONES: Normal proximal humerus, glenoid, and coracoid. OTHER OBSERVATIONS: Negative. No other significant findings or glenohumeral effusion. MR/MR shoulder RT wo con IMPRESSION: 1. Mild strain of the supraspinous tendon. 2. Mild degenerative changes of the acromioclavicular joint. Electronically authenticated by: DESTINI MOHR Date: 12/16/2023 06:43
--- OUTSIDE RECORDS SUMMARY | 2023-12-15 12:39 | XMS_ITS | CCD ---
Author Organization [facility] Care Team Providers Care Ehs Teacher Name Role Phone Dileep Laboy MD Primary [...] Unavailable MARKER ., DR BONILLA Consulting Unavailable MARCINYER ., DR PAN Primary Care Unavailable FORTINO, DR OBEY West Admitting Unavailable FORTINO, DR OBEY West Attending Unavailable FORTINO, DR OBEY West Consulting Unavailable MAY WINTERS V Consulting Unavailable Willy, Imad Unavailable MD Dileep Laboy Primary Care Provider [phone] MD Yao Aguilera Attending Provider Tami Guthrie Unavailable [phone] Leticia Hansen Unavailable Israel Naranjo Unavailable Asaradha, Imad Admitting Unavailable Dileep Laboy Primary Care Unavailable Yao Aguilera Attending Unavailable Tami Guthrie Attending Unavailable Tami Guthrie Primary Care Unavailable Tami Guthrie Admitting Unavailable CRISTIANO REED Attending Unavailable JR. GREENFIELD GEORGE C Referring Unavaila john GREENFIELD JR., SAE Casanova Attending Unavaila CRISTIANO Tinajero Attending Unavailable JR. GREENFIELD GEORGE C Referring Unavaila CRISTIANO Tinajero Attending Unavailable JR. GREENFIELD GEORGE C Referring Michael GREENFIELD JR., GEORGE C Attending OBEY Ro Attending Unavailable INDIO AUGUSTINE Referring Unavailable INDIO AUGUSTINE Referring Unavailable INDIO AUGUSTINE Attending Unavailable Allergies Allergy Classification Reported Allergen(s) Allergy Type Date of Onset Reaction(s) Facility (3 sources) Aspirin; Translations: [aspirin] Drug Allergy Stomach ache (finding) [facility] (19 sources) busPIRone; Translations: [buspirone] Drug Allergy 12-28-19 23 Renal failure syndrome (disorder) [facility] (3 sources) Codeine; Translations: [codeine] Drug Allergy Stomach ache (finding) [facility] (3 sources) Ethinyl Estradiol; Translations: [ethinyl estradiol] Drug Allergy Bradycardia [facility] (3 sources) Famotidine; Translations: [famotidine] Drug Allergy Abdominal pain (finding) [facility] (3 sources) HYDROmorphone; Translations: [hydromorphone] Drug Allergy [facility] (5 sources) levoFLOXacin; Translations: [levofloxacin] Drug Allergy 12-28-19 23 [facility] (4 sources) Meperidine; Translations: [meperidine] Drug Allergy 06-12-19 24 Allergy, Unspecified, Not Elsewhere Classified [facility] (3 sources) Metoclopramide; Translations: [metoclopramide] Drug Allergy Abdominal pain (finding) [facility] (7 sources) Penicillins; Translations: [penicillins] Drug allergy 05-15-18 87 Anaphylaxis (disorder) [facility] (3 sources) Sulfamethoxazole ; Translations: [sulfamethoxazol e] Drug Allergy [facility] (1 source) Aspirin Drug Allergy 02-27-20 13 [facility] (1 source) busPIRone Drug Allergy [facility] (1 source) Codeine Drug Allergy 02-27-20 13 [facility] (1 source) Levamisole Drug Allergy 02-27-20 13 [facility] (1 source) levoFLOXacin Drug Allergy [facility] (1 source) Meperidine Drug Allergy 03-05-20 13 [facility] (1 source) Omeprazole Drug Allergy [facility] (1 source) Sulfonamides (Antibiotic) Drug allergy (disorder) 02-27-20 [facility] (13 sources) lamoTRIgine Drug Allergy 12-28-19 Unknown, Rash [facility] (14 sources) Penicillin Drug Allergy Unknown [facility] Other (14 sources) Sulfonamides (Antibiotic) Propensity to adverse reactions Unknown [facility] Other (14 sources) DEMERAL Propensity to adverse reactions Unknown [facility] Other (3 sources) Sulfonamides (Antibiotic); Translations: [Sulfa (Sulfonamide Antibiotics)] Allergy to substance 10-22-19 [facility] (1 source) busPIRone Drug Allergy 06-12-19 [facility] (1 source) lamoTRIgine Drug Allergy 12-28-19 [facility] (1 source) levoFLOXacin Drug Allergy 12-28-19 [facility] (1 source) Meperidine Drug Allergy 06-12-19 [facility] Medications Current Medications Medication Drug [...] PAIN Start Date: 03/01/22 Status: Ordered Albuterol (18 sources) beta2-Adrenergi c Agonist Start: 12-27-2022 Albuterol Active MCG INHALATION December 27, 2022 12:00am Start: 08-10-2019 take 60 doses by inh alation every four hours as needed albuterol 0.083% Inh Aleksandra 3 mL 0.083% - 3mL dosing units, Inhalation, q4hr as needed for wheezing, 60 EA, Refill(s) 0, [facility]/pharmacy #[id number], 163, cm, 08/10/19 11:04:00 EDT, Height/Length Measured, 110, kg, 08/10/19 11:04:00 EDT, Weight Measured Start Date: 08/10/19 Status: Ordered take 2 puff(s) by mo uth every [...] Days Active ARIPiprazole 5 mg oral tablet (11 sources) Atypical Antipsychotic Start: 06-30-2023 End: 06-30-2023 take 5 mg by mouth once daily Aripiprazole Active 5 MG PO Daily June 30, 2023 12:43pm take 1 tablet by pankaj th every [...] Active cetirizine hydrochloride 10 mg oral tablet (16 sources) Histamine-1 Receptor Antagonist Start: 12-27-2022 Cetirizine Active MG TABLET December 27, 2022 12:00am Start: 12-21-2022 take 1 tablet by pankaj th every twenty-four hours Cetirizine HCl 10 MG 1 tablet Orally Once a day for 90 days Dec, Active dicyclomine hydrochloride 20 mg oral tablet (2 sources) Anticholinergic Start: 10-21-2018 take 20 mg by mouth four times daily Dicyclomine Active 20 MG PO Four times daily October 21, 2018 12:00am DULoxetine 60 mg delayed release oral capsule (4 sources) Serotonin and Norepinephrine Reuptake Inhibitor Start: 07-12-2023 take 60 mg by mouth once daily Duloxetine Active 60 MG PO Daily July 12, 2023 1:00am take 1 capsule by mo [facility] every twenty-four hours Cymbalta 60 MG 1 capsule Orally Once a day Active gabapentin 600 mg oral tablet (18 sources) Anti-epileptic Agent Start: 12-27-2022 take 600 [...] days Active ibuprofen 200 mg oral tablet (12 sources) Nonsteroidal Anti-inflammatory Drug Start: 06-30-2023 take 200 mg by mouth every six hours Ibuprofen Active 200 MG PO Every 6 hours June 30, 2023 1:00am take 1 tablet by mouth every six hours Ibuprofen 200 mg 1 tablet as needed Orally every 6 hrs Active lamoTRIgine 150 mg oral tablet (5 sources) Mood Stabilizer, Anti-epileptic Agent Start: 07-12-2023 take 100 mg by mouth once daily Lamotrigine Active 100 MG PO Daily July 12, 2023 1:00am Start: 07-12-2023 take 150 mg by mouth once vivek y Lamotrigine Active 150 MG PO Daily July 12, 2023 1:00am take 1 tablet by pankaj th every twenty-four hours LaMICtal 100 MG 1 tablet Orally Once a day Active lurasidone hydrochloride 20 mg oral tablet (1 source) Atypical Antipsychotic Start: 07-12-2023 take 20 mg by mouth once daily Lurasidone Active 20 MG PO Daily July 12, 2023 1:00am meloxicam 15 mg oral tablet (19 sources) Nonsteroidal Anti-inflammatory Drug Start: 11-29-2019 take 1 capsule by mouth once daily meloxicam 10 mg oral capsule 10 mg = 1 cap(s), Oral, Daily, Refills(s) 0 Start Date: 11/29/19 Status: Ordered Start: 10-21-2018 take 15 mg by mouth once daily Meloxicam Active 15 MG PO Daily October 21, 2018 12:00am montelukast 10 mg oral tablet (14 sources) Leukotriene Receptor Antagonist Start: 08-18-2023 take 1 tablet by mouth once daily Montelukast Active 0 .ROUTE .COMPLEX August 18, 2023 12:20pm TAKE 1 TABLET BY MOUTH EVERY DAY FOR 90 DAYS Start: 06-30-2023 End: 08-18-2023 take 1 tablet by mouth once daily Montelukast Discontinued 1 TAB PO Daily June 30, 2023 1:00am August 18, 2023 12:20pm [employer] tablet Orally Once a day; Note: Source Status: Taking; Refills: 1; Qty: 90 Tablet; Provider: Jerri Armijo Start: 02-10-2023 take 1 tablet by pankaj th every twenty-four hours Montelukast Sodium 10 MG 1 tablet Orally Once a day for 90 days Jan, Active omeprazole 20 mg delayed release oral capsule (18 sources) Proton Pump Inhibitor Start: 12-27-2022 take 40 mg by mouth twice daily Omeprazole Active 40 MG PO Twice daily 180 90 December 27, 2022 8:44am Start: 12-27-2022 End: 12-27-2022 take 1 capsule by mouth once daily Omeprazole (Prilosec) 20 mg Capsule,Delayed Release(Dr/Ec) Discontinued 20 MG PO Daily December 27, 2022 12:00am December 27, 2022 8:45am polyethylene glycol 3350 026775 mg / potassium chloride 2970 mg / sodium bicarbonate 6740 mg / sodium chloride 5860 mg / sodium sulfate 21510 mg powder for oral solution (2 sources) [...] Inhalation, QID Wheezing, 1 EA, Refill(s) 0, [facility]/pharmacy #[id number], 162.5, cm, 01/03/20 10:07:00 EDT, Height/Length Dosing, 102.5, kg, 01/03/20 10:07:00 EDT, Weight Dosing Start Date: 02/19/20 Status: Ordered ondansetron 4 mg disintegrating oral tablet (2 sources) Serotonin-3 Receptor Antagonist Start: 10-21-2018 End: 12-27-2022 Ondansetron Discontinued 4 MG PO every 6 to 8 hours October 21, 2018 12:00am December 27, 2022 7:54am raNITIdine 150 mg oral tablet (2 sources) Histamine-2 Receptor Antagonist Start: 10-21-2018 End: 12-27-2022 [...] Translations: [Left upper quadrant pain] 10-21-2018 Episodic Anxiety disorders (5 sources) Anxiety; Translations: [Chronic post-traumatic stress disorder] 10-30-2018 Chronic Asthma (13 sources) Mild intermittent asthma; Translations: [Mild intermittent asthma, uncomplicated] Chronic Biliary tract disease (2 sources) Biliary calculus 10-30-2018 Episodic Chronic obstructive pulmonary disease and bronchiectasis (1 source) Bronchitis, not specified as acute or chronic Episodic Coagulation and hemorrhagic disorders (2 sources) Heterozygous Factor V Leiden mutation 04-17-2017 Chronic Disorders of lipid metabolism (5 sources) Dyslipidemia; Translations: [Hyperlipidemia, unspecified] Chronic E [...] sources) Constipation 03-06-2019 Episodic Other gastrointestinal disorders (17 sources) Dysphagia; Translations: [Dysphagia, unspecified] 03-06-2019 Episodic [...] and abdomen Episodic Other lower respiratory disease (3 sources) Chronic cough; Translations: [Chronic cough] 11-29-2019 Episodic Other lower respiratory disease (2 sources) Dyspnea 12-09-2019 Episodic Other lower respiratory disease (2 sources) Dyspnea at rest 11-29-2019 Episodic Other nervous system disorders (2 sources) Right cervical root neuropathy 11-29-2019 Chronic Other nervous system disorders (1 source) Other chronic pain; Translations: [OTHER CHRONIC PAIN] Onset: 2 Chronic Other nutritional; endocrine; and metabolic disorders (7 sources) Body mass index 40+ - severely [...] disease (1 source) Other allergic rhinitis Chronic Other upper respiratory disease (1 source) Seasonal allergic rhinitis; Translations: [Other seasonal allergic rhinitis] 07-03-2023 Chronic Pancreatic disorders (not diabetes) (2 sources) Acute pancreatitis 10-30-2018 Episodic Residual codes; unclassified (2 sources) Obstructive sleep apnea of adult 12-09-2019 Chronic Residual codes; unclassified (5 sources) Obstructive sleep apnea syndrome; Translations: [Obstructive sleep apnea (adult) (pediatric)] 06-30-2023 Chronic Residual codes; unclassified (1 source) Obstructive sleep apnea (adult) (pediatric) Chronic Residual codes; unclassified (14 sources) Early satiety; Translations: [Early satiety] Episodic Residual codes; unclassified (15 sources) Frequent night waking; Translations: [Insomnia, unspecified] 07-03-2023 Episodic Residual codes; unclassified (1 source) Early [...] secondary to d ocumentation in Social History. Past or Other Problems Problem Classification Problem Date Documented Da te Episodic/Chronic Administrative/social admission (3 sources) Dietary counseling and surveillance; Translations: [Other specified counseling] Onset: 06-12-2023 Episodic Other gastrointestinal disorders (1 source) Dysphagia, unspecified; [...] on 12-27-2022 Amphetamines Ql (U) Negative Negative [facility] Barbiturates [Presence] in U rine by Screen methodOrdered By: Imad Asaad on 12-27-2022 Barbiturates Screen Ql (U) Negative Negative [facility] Benzodiazepines Screen Ql (U )Ordered By: Imad Asaad on 12-27-2022 Benzodiazepines Ql (U) Negative Negative [facility] Benzoylecgonine [Presence] i n Urine by Screen methodOrdered By: Imad Asaad on 12-27-2022 Benzoylecgonine Screen Ql (U) Negative Negative [facility] Cannabinoids [Presence] in U rine by Screen methodOrdered By: Imad Asaad on 12-27-2022 Cannabinoids Screen Ql (U) Negative Negative [facility] Comment on above: These are unconfirme d results and should not be used for legal purposes. Drug Cut-Off Concentration: AMPH 1000 ng/mL KARMA 200 ng/mL ZOILA 200 ng/mL COCM 300 ng/mL OP 300 ng/mL PCP 25 ng/mL THC 20 ng/mL Drug Screen,Urineon 12-28-19 23 Amphetamine Screen,Urine Negative Normal Negative [facility] Comment on above: Performed By: #### U RDS #### [address] Barbiturate Screen,Urine Negative Normal Negative [facility] Comment on above: Performed By: #### U RDS #### [address] Benzodiazepines Screen,Urine Negative Normal Negative [facility] Comment on above: Performed By: #### U RDS #### [address] Cannabinoid Screen,Urine Negative Normal Negative [facility] Comment on above: Result Comment: Thes e are unconfirmed results and should not be used for legal purposes. Drug Cut-Off Concentration: AMPH 1000 ng/mL KARMA 200 ng/mL ZOILA 200 ng/mL COCM 300 ng/mL OP 300 ng/mL PCP 25 ng/mL THC 20 ng/mL PERFORMED BY: [place] [address] PATHOLOGIST MILL SET UP LOC LANDRY M.D. Performed By: #### U RDS #### [address] Cocaine Screen,Urine Negative Normal Negative [facility] Comment on above: Performed By: #### U RDS #### [address] Opiate Screen,Urine Negative Normal Negative [facility] Comment on above: Performed By: #### U RDS #### [address] Phencyclidine Screen,Urine Negative Normal Negative [facility] Comment on above: Performed By: #### U RDS #### [place] [address] [place] Isidoro 12-27-2022 L Specimen: [id number] Received: 12/27/22 Status: HERNAN Torres Num: [id number] Spec Type: Surgical Subm Dr: Yao Aguilera MD Tissues: A GASTRIC FOR HP (GASTRIC HP) Procedures: HE/2, Gross/Micro L4, H PYLORI Age/ Patient Sex Location Account Attending Physician Tabitha Gonzalez 47/F [id number] Yao Aguilera MD SPEC NUM: [id number] RECD: 12/27/22 STATUS: HERNAN TORRES NUM: [id number] ELLA: 12/27/22- SUBM DR: Yao Aguilera MD ENTERED: 12/27/22-[address] [facility] [address]: SPEC TYPE: Surgical DEPT: S [...] The microscopic examination confirms the diagnosis. Specimen: [id number] Received: 12/27/22 Status: HERNAN Torres Num: [id number] Spec Type: Surgical Subm Dr: Yao Aguilera MD Tissues: A GASTRIC FOR HP (GASTRIC HP) Procedures: HE/2, Gross/Micro L4, H PYLORI Patient: Tabitha Gonzalez [id number] (Continued) Specimen: [id number] Received: 12/27/22 (Continued) Signed (signature on file) Judson Jo MD 12/28/222007 Specimen: [id number] Received: 12/27/22 Status: HERNAN Brian Num: [id number] Spec Type: Surgical Subm Dr: Yao Aguilera MD Tissues: A GASTRIC FOR HP (GASTRIC HP) Procedures: HE/2, Gross/Micro L4, H PYLORI Patient: MilaTabitha [id number] (Continued) Specimen: [id number] Received: 08/15/23-1013 (Continued) CPT Codes 31994, 46252 Specimen: [id number] Received: 12/27/22 Status: HERNAN Torres Num: [id number] Spec Type: Surgical Subm Dr: Yao Aguilera MD Tissues: A GASTRIC FOR HP (GASTRIC HP) Procedures: HE/2, Gross/Micro L4, H PYLORI Patient: Tabitha Gonzalez [id number] (Continued) Signed (signature on file) Judson Jo MD 12/28/222007 Normal [facility] Opiates [Presence] in Urine by Screen methodOrdered By: Yao Aguilera on 12-27-2022 Opiates Screen Ql (U) Negative Negative [facility] Phencyclidine Screen Ql (U)O rdered By: Yao Aguilera on 12-27-2022 Phencyclidine Ql (U) Negative Negative [facility] Insurance Correspondence Off [place] 03-29-2022 Insurance Correspondence Office [phone] [id number] #[email or web address]:[email or web address] Normal [facility] Coding Summary.on 03-24-2022 Coding Summary. CD:[id number] Gh0bWw+PGhlYWQ+PE1FV XFvV67vaVErnS0PV6bRL V6TTYQTGCTOYS0BGW4yt RN7JRhwJ0UtwyOw UzxhwIZxWW36OSy8YKO7 nQbmYYlbaZ7peJKhP9o6 ApSsEV25kB74NVkzYQTw UbK1LzHgwvrigLAz R4ubKrHxkKUwWfp+PHRh YmxlIHdpZHRoPScxMDAl XbJwyCdkQK9uFg0bSSLx LWNvbGxhcHNlOiBj n2loMEPzJFvyJG0ykWiy W8ZfsGN5KOYky6t8Oz41 dHI+ANEjAXN2vIwaOCig d584VoZco8gkVSN6 kEEmZOsaTQE2V53zj6G8 WYYgMYBpBTH4dVF8wK3d gSnncmhdA9AitJUlStF2 WYY6rLThqU0toYti nuonrC4lKxb+M30GSU1Z JVJEFA2GMea6N1MiIkse dHI+WP18UBYwDF65jKJd wHAes5bgnJc2OkKl IREjJUZ3pJnbLGxxv9Bp LIKaG68ddIRgu7Y2OANp qRbktGBfRrOdoQN0iB0g IRlztdoor7abxruy Qotbz3mtyn52pW92M83a XTmbVGNdUXV7POGsOKTh hBejiv7bvR8bBe9+IDxj a4eye5dnjWd4YiXr RHFqevJlxTitPUG2n7Ow Pj55T9EdrLdes5VfGjp1 ti08pLRhs6D1vEU0XQuk CTHuiP0zKVyhUiJ9 EEFhAbVkgB37hSHkZDsi Mu6ypCtxmSboBG4gGSZd osdoYDPbqR0yUQAcoQNo hLckMC8qKXAwwdez t126XsBhCHU7PLYvgQIr P8AgrS4mLsKeMUEeOZBw E6CxhYUpDPwnI645RIro WiE4ZBTdgnIvY9Dn UPMvuMwnNxM8x9Y0Qn6N v6UilnflHHJ0EOlcSLXz MwTyPdWbUtO1I9IgTbl8 TJJbhVhqSK5iS5Ke RTVidawslqwhvDD8TQBy ISOdmM30rTHqEZelWf6a w7W4j744FKHuSOOojT49 Hw7eoYeiNHRlrZQX eK9eysfbh9gzwgshGsHb QGUhXYs6DFq5NCMuiLhb DhBhSSC7DsB6OET9iIVc kT1ypLtcvtawpZ4i Oyc+V54jzD0dWSG5IGP4 twpaIYVestLvTA92BS82 N3VzDeeukGGklYV+PGRp dtCizVqqBV7yZdMo e5icd9FyWCqfE3ZsBLPe ATgrKtz2WLUkBAM5fSW6 qB5bNQCzVBuow7R2kEJ9 K3OhbaZnhf3by9yf TIOeVEncF88dqLOsn8R4 WDEnvTU3AGRklMrsHyTc aL80Koj+FNHjeBpzn9Ii Ndgto9lvc8xgcYv4 IjMwJSIgdmFsaWduPSJ0 c4UhVi84D57eDZhbDKMm AVSgOZHxVMDraBkgpc1s mP8zEl2+PGNvbCB3 bQX1zB7yQVGpVpY6PXik G906VkByiMZbCdymj4qd d1ibtPf7IkNfGNIunvOb vWddAJW4x8ZrXz07 Z60qYMhaTQZeTDLeOYBb SVUasWrswx8ojI1eFj6+ FP8wq2dter88yS94zXC+ FXNcFPU5fIlfVYkk XYBinE4wBJqaWuR7ZRTo EvGowH97aJXzFCtyXs5m lHribFvcCU4uPUMqsdlr a030HoVet7okLBBt xJLgHBtzQKA1H36dv5X4 UJKwFOFlDIH6zDW8aR8g bGlnbjogbGVmdDsgdmVy mVgpGXruGAcoR197 IHRvcDsnPlBhdGllbnQg FoYaFKw1P0FqMus4JZJh iItpMT9hoXYdONttNu7z eBburLhsUH5pEFMa ipfry740BqUud9wbCVHf nUCpOBwyDSQ7H43yo1M6 SWSeNWSwFLX4zVX6wU0h bGlnbjogbGVmdDsg jrRieKlrWQbySApwB462 IHRvcDsnPkJpcnRoIERh tHQ5LE66NB09lUOtz7W1 dQU5V9MbIWLwwatp capebOM9QQAdJYWttO57 My3obZjyGg1gWTZdBYY3 SKIrpYZzJ3CtkE0uIhSp FPVlBRGsK6FelMAz KIizE934QQdtUoY3OOCx mtMxT7ZaHTTuwXnuEaD1 h5R4Mm9CF7I1QP31RP53 gYVfo2S9zMF4X0Zx TNOongityzpenGD9QHSw CDTwsZ66Kd4jcCeuJm6e DMAgBKX7KKCmpHCtC5Ul eI7jXwCkMFSrEEQg Q8QhkRGhSIadJ081SXvl SjW3VUGmdxLbE9ExZKUt yJruScV9i8U4Gq8ABPe2 HX52LB49sJMqq4V9 cLL0A2AxQWGhfnzmimff xAI0RQInXOQtnS16Fr4u dQmsVx1gUSEyGPS3DXAk kNGfI5PmdJ0uXnAr ORViLEVwX1DuiPKfRObu T388XFxfKuH3SMHcikBv R9WmFNWhaYbmNrF2w2K9 Lg4FIUDbNV25OWS5 lWQ1JC36ZM35M4EmJyyd dGFibGU+PHRhYmxlIHdp ZHRoPScxMDAlJyBzdHls XN2sAq6wJMNpPERl vLkmcAPuEtBkp9ddVBKf BOsxEU3ppDwcJ7JzvRV1 RCLeb2a4Il08H15eP6Sx dXA+LINxbYQ3pGC0 vJ6oDdChKaZ7FJfqQ658 VfSpqVOvOvbfp2bqv8zv yYy2PbR5IMDiqqEqeBva FVY9e6RdBd62F81z IHdpZHRoPSIxNSUiIHZh zCyedt2ujX6dVo0+PGNv iNA6mEB9qS1pOwOqJxB5 SYtpI503ZjBkjWGo Sfxbd2hxq1wpuHe8VoId WEOenwOerBquTMG3f3Pl Fx18D1GjyHhqg1WoIap9 lm37zKCur6F5aUN2 S5OkODCtemdqvPBkdNkb PG0sABGkygiqQSAndJ0r EULpX7g3JbYbQjB3NEyl Y0XcdcC4UGHwiEVw SFwiZQW8V70vg3Y3SXRu HFRzEFC1qFS6lE0xjRts bjogbGVmdDsgdmVydGlj IGajUKtyK511ICSn gXirSQIwwM8rVNEaoSEg nFdmCO2bJIJrhlggJz3H O4OIJikhEC9ZDLdQVZr8 E7XqSne2BEQzcNux YM6gsPGbWOfxLo0noIxs rDtkFE6ySEJrltddIQJx hB4iVFSzkOYqnXpsRV2e VJIouesdz499GfRl CLU9BOTroEKoO5TjwE5u UoEbPSCoBGYsB4PhxROl PNliS820DXuwQgO5CLXm luWyW4RtTAAloHut CgE6t0W2Ml2zSX2aYE4e LEr1AG30HA15tEBnf8B4 qKM8Z7MdRSYcteucqypu bNV6ZJFoEFZeeN95 dULkUObpTg8qs3J6y691 CLFhJSTytR93An3feYdg GIHxwHAAfV0ineoqq5og cjogIzAwMDAwMDt0 CRb0YFMjnLojVaNbBWK2 OmI7ADV3fCNihT3naLrg qckpuD7dIks+NDQgWWVh ibO3V6CnZax7MATf sFelSS6rfWAoBHbqIc9e sLodwCcqPL1tQQXftmyb BWNszQ8rPLTfmHBdbEpu SD8eJKJyemdot565 DsArPCW9ZKDabVDpI2Jd tU9oUgRtOKSeNOSeE3Yt zVJxPTimW169AFknOdW6 FOOfnqLlD0KiZVDi lSxnQhQ3s7X8Vx4RMV6r wCT4Y2DsDbj1XXBhuXxl SE5eqJIrAFvyCj4veNok jVcqLZ3tRKOuigog ULTrfO0bVFHoxLEodWcy ZY2fOYHnbeyvf400ZfRr KGV6FTEfpVRkY5YgbF6f HmMaPERqITZvA3Fa dWRgAIacJ815QDdsZjF7 JRJrwyNiF0NnYPEcrNww OiQ8s6L7Cx1MKKehDN2z fgUxVG9gwiM4Q3Jw PjwvdHI+CQ40FOLjDR47 mPPriFNex6lvzMy6SwDh BESjWRF1zDqtXUbfz3Hw OYSrF63wiJUjb1H8 IGNvbGxhcHNlOyBlbXB0 rT5wMVjrdhshw7vghudp Vnusx4lbyd58hH46P94a IHdpZHRoPSIzMCUi FSKnxEkjol4qhD8kRi2+ ZFExuPN7rUX0sY4mBpMx PyN1UYntP978NvXgtGAl Ayfwl1oex5pzjGa5 IjIwJSIgdmFsaWduPSJ0 x0AaIf94T91qICchQUDl NKWsICHjRJGakDpwes4w dE4rVs6+LU8kg2yn qq53qX22hVJ+PHRkIHN0 qMnmRJmhVPRezL5vJGhp SeS6MLSmYlBusU36nEVs ZRoaCr3baEgwsOop JR4oKBCykaghb995MkYz o1htRQZuxGEhMQdsPNS3 A70uz4T6FHMiJZSpHPV9 hHW1kQ5xeBdbgwfa bGVmdDsgdmVydGljYWwt RFslU492XHWreHbsHhEt tZHbJ3ehczRFPA0gOshq dGQ+FLJsQBT0uEis TVsxGASrzJ2sLKPaL1s4 XkHdHxW2DQaxA3ObsrI9 XSZfnRAsRPKcnTMDqM1j rrvnz6bcentyYnQy OPCbTJy5MTg1PIKkbVmf EqNlEIY6OqQ1DXR8uFBb pR6hwFbdaslbbU6rZnp+ RklOOjwvdGQ+PHRk UPH9fQlnWMdrOPAydG0o RGQmQ6a5UtZqEqM3BPvq U2HfayF2JQPzhUYnNQPx iAKAfN2nmbdow4mo gukbLiBmOOYlYKz0SGu7 EDWceXpfLcFfTTJ5QoU8 QDA3yZGkvW6xvGaywjcp gU9mZow+TVJOOjwv dGQ+GTSgCGY5cWnqHXns IKUriE6qLFMfH3z2AhXl VyN5WTeaQ8EdkdM6JPRd aVXrWYMkkRVYzM7y eviww6vgiemvGtUkIXOi ZAs9KPh5LSPcwDfkCnNz EUJ6RyC7ISU4tJOxvN3t oLwbfqyiyZ9fRho+ PAA6SLA5BP06JL75D0Fs PjwvdGFibGU+PHRhYmxl IHdpZHRoPScxMDAlJyBz dOfsIU5uCt4wYRXr LWNv (more content not included)... [facility] Referrals Officeon 2 Referrals Office [id number]# 1.00CD:127 [facility] Physician Orderon 03-23-2022 Physician Order [id number] 3#1.00CD:127 Normal [facility] Physician Order [id number] 2#1.00CD:127 [facility] Consent for Treatmenton Consent for Treatment [id number] 0#1.00CD:127 Normal [facility] Consultation Noteon 03-21-20 Consultation Note Patient: TABITHA GONZALEZ Age: 46 years Sex: Female : [...] Problems Abnormal liver enzymes / SNOMED CT 217670933 / Confirmed Anxiety / SNOMED CT 71679548 / Confirmed Todd's esophagus / SNOMED CT 277733731 / Confirmed Body mass index 40.0-44.9, adult / SNOMED CT 3608848626 / Confirmed Chronic coughing / SNOMED CT 740406576 / Confirmed Chronic post-traumatic stress disorder / SNOMED CT 425629108 / Confirmed Classic migraine / SNOMED CT 4131629 / Confirmed Constipation / SNOMED CT 88089644 / Confirmed Depression / SNOMED CT 75976857 / Confirmed Dysphagia / SNOMED CT 47051674 / Confirmed Dyspnea on minimal exertion / SNOMED CT 228174001 / Confirmed Endometriosis / SNOMED CT 7607591231 / Confirmed Factor 5 Leiden mutation, heterozygous / SNOMED CT 603298207 / Confirmed Fibromyalgia / SNOMED CT 42384486 / Confirmed GERD - Gastro-esophageal reflux disease / SNOMED CT 7382014819 / Confirmed Glucose intolerance / SNOMED CT 34351612 / Confirmed Morbid obesity due to excess calories / SNOMED CT 225294586 / Confirmed Obesity / SNOMED CT [id number]-N [id number] / Possible Obstructive sleep apnea, adult / SNOMED CT 7934542248 / Confirmed Right cervical radiculopathy / SNOMED CT 1420192731 / Confirmed Shortness of breath at rest / SNOMED CT 957231263 / Confirmed Smoker / SNOMED CT 691316135 / Confirmed Added secondary to documentation in Social History. Histories Past Medical History: Active GERD - Gastro-esophageal reflux disease (5265513486) Todd's esophagus (404280635) Endometriosis (8821253579) Fibromyalgia (82360108) Resolved Acid reflux (166958368): Resolved. Hiatal hernia (798883124): Resolved. Gallstones (862588419): Resolved. Acute pancreatitis (291784111): Resolved. Family History: Primary malignant neoplasm of colon Uncle Anxiety Child Rheumatoid arthritis Mother Hypothyroidism Mother Diabetes mellitus type 2 Grandparent Alcoholism Brother Stroke Grandparent Depression Child DVT - Deep vein thrombosis Uncle DVT Aunt Procedure history: Hysterectomy (576447662) on 04/28/2017 at 41 Years. Comments: 04/28/2017 17:10 ADELAIDA Ruggiero RN, [facility] [employer] hysterectomy, left salpingo-oophorectom y, right salpingectomy, lysis of adhesions laparoscopic tubal with cautery, fulguration of endometriosis, removal of IUD on 09/04/2013 at 38 Years. Laparoscopic cholecystectomy ([id number]). Colonoscopy ([id number]). EGD. Social History Social & Psyc (more content not included)... [facility] Comment on above: Result Comment: Elec tronically Signed By: Bharti SHELDON, Phill Cruz.br\Date and Time Signed: 03/21/22 09:54 EST HIPAA Forms Officeon 022 HIPAA Forms Office [id number]. [id number] 5#1.00CD:127 [facility] Legal Correspondence Officeo n 03-21-2022 Legal Correspondence Office [id number]. [id number] 1#1.00CD:127 [facility] Legal Correspondence Office [id number]. [id number] 5#1.00CD:127 [facility] Office/Clinic Note-Physician on 03-21-2022 Office/Clinic Note-Physician [id number]. [id number] 4#1.00CD:127 [facility] Orders Officeon 03-21-2022 Orders Office [id number]. [id number] 9#1.00CD:127 [facility] Patient Correspondenceon Patient Correspondence [id number]. [id number] 5#1.00CD:127 [facility] Patient Correspondence [id number]. [id number] 3#1.00CD:127 [facility] Patient Correspondence [id number]. [id number] 5#1.00CD:127 [facility] Patient Correspondence [id number]. [id number] 5#1.00CD:127 [facility] Patient Correspondence [id number] 7#1.00CD:127 [facility] Patient History Officeon Patient History Office [id number] 211 [id number] 6#1.00CD:127 [facility] Insurance Correspondence Off iceon 03-15-2022 Insurance Correspondence Office [id number] 6#3.00CD:127 [facility] Coding Summary.on 03-09-2022 Coding Summary. CD:[id number] Gh0bWw+PGhlYWQ+PE1FV VRyH33zlLIbwJ7UW9rND I2ORURSHHRTBN6EZE9wr WU6WRzuE7JsamTy BokotQRcUI58YXu2SAC1 wQamNWmnxK5sfZWxZ8d2 QuPkSJ10wP47LGkeUJCm PxP3WcPgwautmTVa C0ysMfHukDZjTmr+PHRh YmxlIHdpZHRoPScxMDAl EuHitLrpAO5xJq4oQXOr LWNvbGxhcHNlOiBj i8lrYIXoWQmuWP5uiDtw H8EqmVT7JCGsn1u9Vq95 dHI+IZXoKIZ9lTykITcz q736TfQuw7rtYKX9 xWWgLStbBQT5V59jy4C1 GDNhUHUnIBS4qAG9eC0a dIpbttnvM1MhzDHvSlY0 XGG9uZVzhM9tkWwp smwudM2nBcu+O77VOZ9W QBXDNZ6DBqq9L2FbIirs dHI+GS60ABTwBR56nPJo nQIsw0yerQm6VkAt DEGzUKU2iUyrCVdyd6Qd LRInA61xtXOsg2D1NBHn cGwrbMWpLiYcqFG7wK7p QMhtfoakw7mjxlgn Dogqj0asfb86oD72D82v KDtwUFShICW1WMHuVKJt kFubdh9qsU3nEe8+IDxj g7zfn7riwPn8ZxWc VNHsfnVdeQmcGHF0o6Fd Jn47D9QcvOkwt0KlTam5 fw07xPRdh8T8sYR7BSpz JYTesN4vWBlpTrP9 ETGfQyEmdK73uDRoALlz Fb3llLifqKljLE4oUXWf uzzaEBBvbV4uJKNxrSPp aRhbUM9rDZNmuvze c730MsQwLVE6IPNsgVYs A3AkaI1fSrEtHHXiIBZu H9VqsEVuMRojO674RIgh GzW6TSGhqiGwQ6Kp YPTqfVvbExD6s7S7Xg6E y2MhhpocKNS9PJgnUQTh ShU8MiNeBnU7W1RxKwl4 DCUkdFinCK3pC8Sm TFFgtrtycmqapEZ7ZXAv PAEghL95bEFuJPjfXx4u i3H4g642HCHwWIZhsF95 Yw9vsJweYASajOAR cK9fvmemn4tunkusCcMe SHZvLMj8RIq6AILrqAoc JjQuLMB5MxM0CCB6kLSv eT4daNjpxslfwP4n Oyc+I47geP6gGAL6GBS6 nradIDEqkuUyAI71JQ69 C8KpXybinLEoxTU+PGRp tsYpeQbfQX4uBfVq j8dfm2AcAFscS5DzYJTu XVtcJqy5UBYsOAB3lOM0 jY6gJQUeBErfr6C7aGL5 U2RjksQvnj3yh2vg IRCtPHpfA34jaUYeh4Q4 ZUQpoJU3DLEgpLbfVbVd aQ32Sek+DBJalIwrk1Ym Tqqde9gng3qttIt9 IjMwJSIgdmFsaWduPSJ0 s1WzSo14R27iFRaeQJRi YGBhHZSvTGDuyYglus0u kU8jDf7+PGNvbCB3 sNG6tX3tMJNnJcJ3WRok M487WpTtbAGwNwqae4rt f4vlvBj8EgDaDYUhlcFd kXxzSVN9u7ChIs76 M91qFMphMVKqWAQwSCXt GKImlSmjsh5cjE7oJu2+ AP0gm5nfrv19cA48sWA+ QFRgWEI2vRooLVwi XLKlfU5rEMywAiW8ZQUr SiNuhU55cWQcQHtyRl7l fErnrRchEL8bCMIicryj l862MvHpk8isIGSm tHHrZNudJHU7K32uo6D2 RLCqEXQrDOQ5cRQ0zW4l bGlnbjogbGVmdDsgdmVy bTetZWthERgsL333 IHRvcDsnPlBhdGllbnQg UyAySVo2L8NbZya7DVSd wJuyWW7atNHyYKbtYz3u xEmizHrhTI3qCMPl bdltp170RuWyp5eyOQAk uABlTBkkJCK1C82jk2A4 JJTbCYMkPXB9eML0vK1q bGlnbjogbGVmdDsg ppOedDhgKYmyIQmrF798 IHRvcDsnPkJpcnRoIERh aWD1AK89QK60tNKuw6X1 fLW2I4BjFUOvapdg ddoplJS2OWNbQXQhuX23 Df0xeXxpQi5hCXTiCEA0 POMgxNStW4PmfE3eZfIz SFGlAUNbK5NxmTGx RPkzO952WEmxQkC2SCIu xaKzH5BlMLIzmPkbBgN2 j9H8Cx3KK7W3VR39XE31 fVDgo9W4lHH9T2Xc LISeypbxitmehVZ5OABy WIXiyL07Ag8icQivRw4r GDAuJQJ9ETByhAViB4Tc vX0sZfZcGDCyJTSv I0FaeRNlUZrvU330GVpp TuN2NBAgpfZxO5HaXFRn kMapXvF3u9D3Eu8FBTp0 OO14RA12iBMsi1E6 kJK4D5QlUYWasrqrwrug xHK8JWXnJAMyaG12Ed0s tWoiGj2lWYAkWNL2CEEb gUDqR5RsfR7qTzQo CYCtSXMiX7VheVAdGXkt J448JTjqBnQ7HVBdhgLr V8WsPBUuzEreLyE0f9H7 Zl4TEPVvTA90LXN1 rNB6FC91YD25K9MjAsdj dGFibGU+PHRhYmxlIHdp ZHRoPScxMDAlJyBzdHls VU8tVp6yNWLrQHGo zPverTEhEqNme0bnWFTr BGhdCF3tiGouI1BfhMC5 IISje9n6Pm99S44kO1Sa dXA+XVMqaMV0xII8 jY3hNgKmXcS7ORfaF305 NoOypWLcSmxpp0njf2vg bBy5FhL3QRJmhlKykSoj OID4p6KlRb54H55y IHdpZHRoPSIxNSUiIHZh uSipmx8sdF7wPl0+PGNv gBS9fXT1pL8mFkQlCiG4 KFwjJ143VqYwoZAy Sredt6rzo8atmUg7XyTm XMEhowCysEfuBOE1a3Vd Rr17V7XfdSfiv4OcDgp7 kb40qCUws8I8sYZ3 T4LmJISkcuctkHLefBer WQ6dPTZxwqavAIXdkS5i PQPlL1b7MmKrPfM7HHhp O5ApecZ1GUUsbRPw PIdxMVU2L04kf3Y1ODCr GBVfWPA6uHN7tC2cfEqo bjogbGVmdDsgdmVydGlj TSlzQGizK322RPXr gCicQSBmrX7nZQKxtJXo lChmWO3gISDxftunKw9F C2GDIexbKQ5WBGxWYJh5 N2KeTpy9XVRzhCsx ZV4xhJKjMEyhZr2rrJsf wNqaBR2lMYXovnldQCGo yD3tZFBqwGHlhTpqTY6z OBRxoblgf168NnNc BYT7ODMfjMFmD7OyuE2k XpHcLCViZITzX5OcuZVo EEpvN495TFidPpC9QCSg xaSsF3XvRUEyqGwa MaJ9i8M0Jf1mQC2jGX0h RGf4FM61VZ37zBUlu1D8 oBE8G4PpTINtnnysgyfm xIS9VLFoZGNvvM71 hATjYBgaMh6fn6B5y933 ATClHWKnpQ85Aj0puZyg GMFpvRPVxE1owtukg8ny cjogIzAwMDAwMDt0 ZAg3PVBsrEmsArBpEZO7 MmX5CYF6qTTlqB3mzIez ywbbaZ5tCgy+NDQgWWVh bjK2Y9UfSmo7PFVi mBgeVP5rsEYkXWczXo8s nLtezDflGL9eDPNbofaa DMGdsA8kVVZcpHSmiZnk JB8iZZBvysmvu099 SgEpJGT4VYEujGTqB4Cp bV7zAwYsNLKnXMXjQ6Rc gZWtZWfoR040HCaqKwE8 ETAfodBdK1RsOGIh iGwaFlQ2y7L5Ly8ZNG0o sVM7R9JqRpw3PTTfyFnj NI7fwAXdNPdrLi8afFsf kWohWV7tRJVbqiva NIQxfB6hZHXabUEjjKiu FT5pGGEurjmhz848UxQy ESK9CABjuKRqO6IydU6y UtSxFJCjSOVbL7Bo zTQhNLyxY031HTcaEaC6 PZHdgyQmI6FjSRLgvZzb MsV0z7Q6Ur7CqTSkDKIq AR07MO75JE95T2Tp PjwvdGFibGU+PHRhYmxl IHdpZHRoPScxMDAlJyBz aZmvHU5cBe1kCEUbTEWt gZrnfEJdJoQhf8bq KGSyROmnFC6urLlhA5Zm iBA4BTAxw7x3Or55G80m F4DgjFI+PDUzrJQ0fDG5 tD1uCmJfZeP0XOfi P534NcQmvCNvQmpro2ez o9mpjDj9BrTuTUXamtPi cJbzFZG7o0BaTx93C36u IHdpZHRoPSIyMCUi MMKheMkoou9toF9qJd9+ OTCzhXY4vWC6zR0uJcLx FbR0NFrtH347HwEcvDQl VhapA41yR3BghWS+ BCQbZvu1RSDolCuzSD3p yUHvNXaaKm4rDSW4AoBr MfKxQCzyV9VwWDWebikw yvrgcMH2TYEdYBKp cX15Bf6igTtrLi0pRDBm IOH0MJEdyLNnS1ZysM0s WpZfFMMrHVQcR2PfkESd RMtuH824IKvzJoY0 KZSadiVvG9JpFIOwbTau ElD8b9Z7Dy3FqAkyjEOl JQ2iMgJpNAs5H0ImOpu4 ZXYzsDovCL9oeAWh EHfmDd3fnBdhiSgsQO8o BMGakhnlj016BzPoo4da VQIffDZgQQokPNE5K43e m4S8MLFkMXItNMS6 uTZ6qK2qpWykogdixNPj dDsgdmVydGljYWwtYWxp P747NNQfrDryVxPIDdy3 P8TkHyx7XSEcpXqg UC0nuFPsUZchKy6lgUdv sLvbIR2oDPIgzzfvs244 YvCxi1jvFZSekMGtJPtr RGV1Q71fr8Q5FBBo PZCiGQY0iUI8wV8tcLfq bjogbGVmdDsgdmVydGlj AVjgIGioW026WRPxvZyw Py6EBzj4G1SwBde0 OZOtnNtaVE2hdGAnLVli Es7vuDntvZosCV1jLSSr hldzs373WaMgs6qqFOAl dKPsRTbrEOR4J19p t8C9NCZoDLVdCFE6gEI6 bE6xzMdvimyymISsiDth kiOjfRviCFdaJSjgB168 IHRvcDsnPlBheWVy OjwvdGQ+PG94kl44K1Bn IrllEdx3IMNeZPO3wFZ4 kL8fYJAyIUiof0K6kXE2 Q3HfjsGtnn0ff1cr YXBz (more content not included)... [facility] Consent for Treatmenton 02-12 Consent for Treatment [id number] #1.00CD:127 [facility] HIPAA Forms Officeon 022 HIPAA Forms Office [id number]. [id number] 6#1.00CD:127 [facility] Legal Correspondence Officeo n 03-01-2022 Legal Correspondence Office [id number]. [id number] 1#1.00CD:127 [facility] Office/Clinic Note-Physician on 03-01-2022 Office/Clinic Note-Physician [id number]. [id number] 4#1.00CD:127 [facility] Orders Officeon 03-01-2022 Orders Office [id number]. [id number] 3#1.00CD:127 [facility] Outside Records Officeon Outside Records Office [id number]. [id number] 0#1.00CD:127 [facility] Radiology Outside Office Assistant Counsel yon 02-25-2022 Radiology Outside Office Copy [id number] 3#1.00CD:127 [facility] Referrals Officeon Referrals Office [id number] 0#1.00CD:127 [facility] CNPNon 09-28-2021 [facility] Telephone ([facility]) TABITHA GONZALEZ ([id number]) 1975 F Date Time Provider Department 09/28/21 MATHEW ASH [facility] During your visit today, we recorded the following information about you: Jorge Yanes 09/28/2021 9:55 AM Signed Provider unavailable. Appointment rescheduled. Called and spoke with patient directly to confirm. Patients initial consult was scheduled for Izzy, then she had it moved up to [...] wait list for sooner appointment. PATRICIO Vasquez [facility] 10/04/2021 2:32 PM Signed Patient calling [...] to any location. Can be reached at [phone]. Robbi Wilson RN 10/04/2021 2:59 PM Signed Pt placed on wait list. Robbi Wilson RN Allergies As of Date: 09/28/2021 (Not on File) Date Reviewed: Never Reviewed Reason for Visit: Appointment Rescheduled [1024] Problem List As Of Date: 09/28/2021 (None) Encounter Status:Closed by JORGE YANES on 01/27/22 Normal [facility] Vital Signs Date Time Vital Sign Value Performing Clinician Facility 06-12-2023 12:45-0500 Body height 166.37 cm Irsael Naranjo Other [facility] Other 06-12-2023 12:45-0500 Body mass index (BMI) [Ratio] 46.44 kg/m2 [employer] Other [facility] Other 06-12-2023 12:45-0500 Body weight 128.55 kg [employer] Other [facility] Other 06-12-2023 12:45-0500 Diastolic blood pressure 79 mm[Hg] [employer] Other [facility] Other 06-12-2023 12:45-0500 Respiratory rate 18 /min [employer] Other [facility] Other 06-12-2023 12:45-0500 SaO2% (BldA) [Mass fraction] 96 % [employer] Other [facility] Other 06-12-2023 12:45-0500 Systolic blood pressure 130 mm[Hg] [employer] Other [facility] Other 05-24-2023 10:30-0500 Body height 165.1 cm Tami Guthrie Other [facility] Other 03-29-2023 09:00-0500 Body height 165.1 cm Tami Gellerr Other [facility] Other 03-29-2023 09:00-0500 Body mass index (BMI) [Ratio] 44.06 kg/m2 Tami Phelpsbenitaacher Other [facility] Other 03-29-2023 09:00-0500 Body weight 120.11 kg Tami Gellerr Other [facility] Other 03-29-2023 09:00-0500 Diastolic blood pressure 70 mm[Hg] Tami Phelpsjoer Other [facility] Other 03-29-2023 09:00-0500 SaO2% (BldA) [Mass fraction] 96 % Tami Yimir Other [facility] Other 03-29-2023 09:00-0500 Systolic blood pressure 128 mm[Hg] Tami Phelpsbenitaacher Other [facility] Other 02-10-2023 09:00-0400 Body height 165.1 cm Tami Yimir Other [facility] Other 02-10-2023 09:00-0400 Body mass index (BMI) [Ratio] 42.76 kg/m2 Tami Phelpsbenitaacher Other [facility] Other 02-10-2023 09:00-0400 Body weight 116.58 kg Tami Phelpsbenitaacher Other [facility] Other 02-10-2023 09:00-0400 Diastolic blood pressure 74 mm[Hg] Tami Jerri Other [employer] [facility] Other 02-10-2023 09:00-0400 SaO2% (BldA) [Mass fraction] 97 % Tami Rochaelyse Other [facility] Other 02-10-2023 09:00-0400 Systolic blood pressure 118 mm[Hg] Tami Jerri Other [facility] Other 12-27-2022 09:05-0400 Diastolic blood pressure 89 mm[Hg] MD Dileep Laboy Work Phone: [facility] 12-27-2022 09:05-0400 Heart rate 96 /min MD Dileep Laboy Work Phone: [facility] 12-27-2022 09:05-0400 Respiratory rate 16 /min MD Dileep Laboy Work Phone: [facility] 12-27-2022 09:05-0400 SaO2% (BldA) [Mass fraction] 99 % MD Dileep Laboy Work Phone: [facility] 12-27-2022 09:05-0400 Systolic blood pressure 146 mm[Hg] MD Dileep Laboy Work Phone: [facility] 12-27-2022 07:44-0400 Body height 162.56 cm MD Dileep Laboy Work Phone: [facility] 12-27-2022 07:44-0400 Body weight 113.39 kg MD Dileep Laboy Work Phone: [facility] 03-21-2022 09:11-0500 Diastolic blood pressure 84 mm[Hg] Phill Hay [facility] 03-21-2022 09:11-0500 Heart rate 102 /min Phill Hay [facility] 03-21-2022 09:11-0500 Mean blood pressure 96 mm[Hg] Phill Bharti [facility] 03-21-2022 09:11-0500 Respiratory rate 16 /min Phill Hay [facility] 03-21-2022 09:11-0500 Systolic blood pressure 121 mm[Hg] Phill Bharti [facility] 03-01-2022 11:01-0400 Diastolic blood pressure 78 mm[Hg] Candelario Burns [facility] 03-01-2022 11:01-0400 Heart rate 92 /min Candelario Burns [facility] 03-01-2022 11:01-0400 Mean blood pressure 94 mm[Hg] Candelario Burns [facility] 03-01-2022 11:01-0400 Respiratory rate 12 /min Candelario Burns [facility] 03-01-2022 11:01-0400 Systolic blood pressure 127 mm[Hg] Candelario Burns [facility] Encounters Encounter Date Encounter Type Care Provider Facility Start: 12-13-2023 End: 12-13-2023 ambulatory SAE FARRIS Not Available Start: 12-11-2023 End: 12-11-2023 ambulatory CRISTIANO REED Not Available Start: 11-30-2023 End: 11-30-2023 ambulatory CRISTIANO REED Not Available Start: 11-21-2023 End: 11-22-2023 ambulatory CRISTIANO REED Not Available Start: 11-15-2023 End: 11-15-2023 ambulatory SAE FARRIS Not Available Start: 11-10-2023 End: 11-10-2023 ambulatory OBEY WELLER Not Available Start: 09-14-2023 End: 09-14-2023 ambulatory INDIO AUGUSTINE Not Available Start: 08-22-2023 Non-patient / Non-visit [facility] [employer] Work Phone: Start: 06-26-2023 End: 06-26-2023 ambulatory Tami Guthrie Other [facility] Other Start: 06-26-2023 Telephone encounter Tami Keyla her [facility] Start: 06-12-2023 End: 06-12-2023 ambulatory Tami Guthrie [employer] Other Start: 06-12-2023 Nutrition therapy Israel Naranjo [facility] Start: 06-12-2023 Telephone encounter Tami Ramires her [facility] [employer] Start: 05-24-2023 End: 05-24-2023 ambulatory Tami Guthrie Other [facility] Other Start: 05-24-2023 Office outpatient visit 10 minutes Tami Guthrie [facility] Start: 05-16-2023 End: 05-16-2023 ambulatory Tami Guthrie Other [facility] Other Start: 05-16-2023 Telephone encounter Tami Keyla her [facility] Start: 05-01-2023 End: 05-01-2023 ambulatory Tami Guthrie Other [facility] Other Start: 05-01-2023 Office outpatient visit 15 minutes Tami Guthrie [facility] Start: 04-11-2023 End: 04-11-2023 ambulatory Tami Guthrie Other [facility] Other Start: 04-11-2023 Telephone encounter Tami Keyla her [facility] Start: 03-30-2023 End: 03-30-2023 ambulatory Leticia Hansen Other [facility] Other Start: 03-30-2023 Telephone encounter Leticia Hansen [facility] [employer] Start: 03-29-2023 End: 03-29-2023 ambulatory Tami Phelpsbenitaelyse Other [facility] Other Start: 03-29-2023 Office outpatient visit 25 minutes Tami Guthrie [facility] Start: 03-09-2023 End: 03-09-2023 ambulatory Tami Yimiishaan Other [facility] Other Start: 03-09-2023 Telephone encounter Tami Ramires her [facility] Start: 03-06-2023 End: 03-06-2023 ambulatory Tami Yimiishaan Other [facility] Other Start: 03-06-2023 Telephone encounter Tami Ramires her [facility] [employer] Start: 02-10-2023 End: 02-10-2023 ambulatory Tami Guthrie Other [facility] Other Start: 02-10-2023 Office outpatient visit 25 minutes Tami Guthrie [facility] Start: 12-27-2022 End: 12-27-2022 Admission to same day surgery center MD Dileep Laboy Work Phone: [facility] Work Phone: Start: 12-27-2022 End: 12-27-2022 ambulatory MD Dileep Laboy Work Phone: [facility] Work Phone: Start: 12-23-2022 End: 12-23-2022 ambulatory Imad Asaad Other [facility] Other Start: 12-23-2022 Telephone encounter Yao [facility]RA[facility] Start: 08-19-2022 End: 08-19-[address] DILEEP LABOY . Facility: Start: 03-21-2022 End: 03-22-2022 ambulatory Phill Hay Facility:[facility] Start: 03-21-2022 End: 03-21-2022 Pain Management Phill Hay [facility] Start: 03-01-2022 End: 03-02-2022 ambulatory Candelario Burns Facility:[facility] Start: 03-01-2022 End: 03-01-2022 Patient encounter procedure Candelario Burns [facility] Start: 01-19-2022 End: 01-19-[address] DILEEP LABOY . Facility: Start: 09-28-2021 Telephone encounter Mathew Ash MD Work Phone: Gastroenterology Comment on above: Appointment Reschedu led Procedures Date Procedure Procedure Detail Performing Clinician Start: 12-27-2022 Esophagogastroduodenoscopy MD Dileep mccoy Work Phone: Start: 04-28-2017 Hysterectomy Candelario Burns Comment on above: Robotic-assisted hysterectomy, left salp ingo-oophorectomy, right salpingectomy, lysis of adhesions Start: 09-04-2013 laparoscopic tubal with cautery, fulguration of endometriosis, removal of IUD Candelario Burns Colonoscopy Candelario Burns Esophagogastroduodenoscopy T awilda Burns H/O: hysterectomy H/O: hysterectomy Laparoscopic cholecystectomy Candelario Burns Plan of Treatment Date Care Activity Detail Author Start: 12-27-2022 [facility] Start: 01-13-2022 Influenza vaccination INFLUENZA (#1) [facility] Start: 2017 Mammography MAMMOGRAM [facility] Start: 08-22-2007 HPV TESTING HPV TESTING [facility] Start: 1998 PAP TESTING PAP TESTING [facility] Start: 1996 Urine microalbumin profile DTAP,TDAP,TD (1 - Tdap) [facility] Start: 08-22-1995 HEPATITIS C SCREENING HEPATITIS C SC REENING [facility] Start: 08-22-1995 HIV SCREENING HIV SCREENING [facility] Start: 1989 Adult depression screening assessment DEPRESSION SCREENING [facility] Start: 02-20-1978 COVID-19 VACCINE (#1) COVID-19 VACCI NE (#1) [facility] Start: 1977 HEPATITIS B (1 of 3 - 3-dose series) HEPATITIS B (1 of 3 - 3-dose series) [facility] Immunizations Immunization Date Immunization Notes Care Provider Mayur acosta 01-09-2014 influenza, injectabl e, quadrivalent, contains preservative [facility] 01-09-2014 influenza, injectabl e, quadrivalent, preservative free Imad Asaad Other [facility] Other Payers Date Payer Category Payer Medicaid [id number] 2022 Self-pay [id number] 2021 Private Health Insurance [facility] [id number] 2021-[address] [place] [address] Open Access [id number] 1975 Unknown [id number] 2.840.1.089867.3.579.2.7 27 1977 Unknown [id number] 2.840.1.638750.3.579.2.7 27 1977 Unknown [id number] 2.16.840.1.858061.3.579.2.5 93 1977 Unknown [id number] 2.16.840.1.547309.3.579.2.5 93 1977 Unknown [id number] 2.16.840.1.860894.3.579.2.1 259 1977 Unknown [id number] 2.16.840.1.699094.3.579.2.1 259 1977 Unknown [id number] 2.16.840.1.808854.3.579.2.1 259 1977 Unknown [id number] 2.16.840.1.649477.3.579.2.1 259 1977 Unknown [id number] 2.16.840.1.235651.3.579.2.1 259 1977 Unknown [id number] 2.16.840.1.781411.3.579.2.1 259 1977 Unknown [id number] 2.16.840.1.287459.3.579.2.1 259 1977 Unknown [id number] 2.16.840.1.186227.3.579.2.1 259 1959 Self-pay [id number] 1957 Unknown [id number] Private Health Insurance [facility] [id number] Unknown [id number] 31 Unknown [id number] 31 Social History Date Type Detail Facility Tobacco smoking status DCIS Tobacco smoking consumption unknown [facility] Start: 1975 Sex Assigned At Not on file C [facility] Start: 10-10-2021 End: 10-20-2021 Exposure to SARS-CoV-2 (event) Not sure [facility] Start: 11-29-2019 Tobacco smoking status Light tobacco smoker (finding) [facility] Sex Assigned At Female [facility] Start: 12-27-2022 End: 07-12-2023 Tobacco smoking status NHIS Smoker (finding) [facility] Start: 1975 Sex Assigned At Female F [facility] Goals Date Patient Goal Desired Activity /State Functional Status Date Assessment Result Facility 03-21-2022 Functional Status N/A [facility] 03-01-2022 Functional Status N/A [facility] Clinical Notes 04-14-2016 to 06-26-2023 Note Date & Type Note Facility 06-26-2023 Evaluation note Encounter Date Diagnosis Assessment Notes Jun, GERD (gastroesophageal reflux disease) (ICD-10 - K21.9) Jun, 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 Please excuse errors in seismograph supervisor. May, Dietary surveillance and counseling (ICD-10 - Z71.3) Discussed in detail high-protein, high-fiber, low-fat nutrition plan favoring calorie deficit and lean tissue mass preservation. -Patient experiences bloating with several foods. Recommend RD appointments -She is meeting with gastroenterology at [facility] May, Exercise counseling (ICD-10 - Z71.89) Absolute [...] with the patient, and documenting clinical information. [facility] Other 01-11-2024 Reason for visit NarrativeWeight loss clinic referral- [phone] [employer] Other 01-10-2024 Evaluation note* Encounter Date Diagnosis [...] in visit was myself, Tami Guthrie DNP, [employer] TECHNICIAN, [employer] (provider) . Time spent with patient was approximately 6 minutes. [facility] Other 01-02-2024 Evaluation note* Encounter Date Diagnosis Assessment Notes Treatment Notes Treatment Clinical Notes May, Bloating (ICD-10 - R14.0) May, Alternating constipation and diarrhea (ICD-10 - R19.8) May, GERD (gastroesophageal reflux disease) (ICD-10 - K21.9) May, Hiatal hernia (ICD-10 - K44.9) [facility] Other 12-18-2023 Evaluation note* Encounter Date Diagnosis Assessment Notes Treatment Notes Treatment Clinical Notes Apr, Bronchitis (ICD-10 - J40) Discussed diagnosis with patient. Patient to start Zithromax. Patient to take Zithromax daily with food as prescribed. Finish entire course of antibiotic. Proair inhaler sent today for patient to use PRN cough/wheezing/short ness of breath. Increase fluids and rest. [id number] antipyretics as needed. Warning signs and symptoms [...] in visit was myself, Tami Guthrie DNP, P[employer] LINEMAN TECHNICIAN, [employer] (provider) . Time spent with patient was approximately 10 minutes. [facility] Other 11-16-2023 Evaluation note* Encounter Date Diagnosis Assessment Notes Treatment Notes Treatment Clinical Notes Mar, Cigarette nicotine dependence without complication (ICD-10 - F17.210) Mar, Chronic cough (ICD-10 - R05.3) Mar, Mild intermittent asthma without complication (ICD-10 - J45.20) [facility] Other 11-15-2023 Evaluation note* Encounter Date Diagnosis [...] and willingness to quit at each appointment. [facility] Other 10-26-2023 Evaluation note* Encounter Date Diagnosis Assessment Notes Treatment Notes Treatment Clinical Notes Feb, Other OARRS checked l ast filled 04/2022 [facility] Other 09-29-2023 Evaluation note* Encounter Date Diagnosis [...] for further options for treatment of fibromyalgia [facility] + Plan noteExtracted from: Title:NPV Author:Bharti SHELDON, Phill Miranda Date :03/21/22 Impression and Plan 46-year-old female [...] is consistent with medications listed as prescribed. [facility]10-22-2022 NoteHOSPITAL REGULATIONS: All Positive and Important [...] us juventino Burns M.D. lr Dictated: 03/01/2022 [id number] Transcribed: 03/01/2022 cc:Dileep Laboy M.D.[place] Osteopathic ClinicComment on above:Result Comment: Electronically Signed By: Grant SHELDON, Candelario Armijo\.br\Date and Time Signed: 03/05/22 21:30 [id number] NotePROCEDURE: ShowMe Signa HDXT 1.5 Sagittal T1, T2, STIR [...] and signed by Leonel Fuentes on 02/08/2022 1050[facility]09-07-2022 NotePROCEDURE: CT CERVICAL SPINE W/O DYE COMPARISON: [...] Electronically authenticated by: MAY WINTERS Date: 2022-01-19 08:41[facility]05-23-2022 Miscellaneous Notes* Telephone Encounter - Robbi Wilson [...] to any location. Can be reached at [phone]. * Telephone Encounter - Robbi Wilson RN - 09/28/2021 10:59 AM EDT Patient on wait list for sooner appointment. Robbi Wilson RN * Telephone Encounter - Jorge Yanes - 09/28/2021 9:42 AM EDT Provider unavailable. Appointment rescheduled. Called and spoke with patient directly to confirm. Patients initial consult was scheduled for [facility], then she had it moved up to September due to her pain, now her appointment has been rescheduled for next available in December and added to the wait list. Patient is willing to go to any location for a sooner appointment. Is there any possible way to get her in sooner appointment. Please advise. [facility] History general Narrative - Reported* Type Description Date Medical History Vitamin D deficiency Medical History B12 Surgical History GALLBLADDER Surgical History TUBAL LIGATION Surgical History hysterectomy 04/2016 [facility] PPTV Other 12-01-2016 History general Narrative - Reported* Type Description Date Medical History Vitamin D deficiency Medical History B12 Medical History fibromyalgia Surgical History GALLBLADDER Surgical History TUBAL LIGATION Surgical History hysterectomy 04/2016 [facility] Other Evaluation + Plan note No data available for this section [facility] Other Evaluation noteNo assessment information available [facility] Work Phone: History and physical note Author Yao Aguilera [facility] December 27, 2022 8:26am Note Date/Time December 27, 2022 8: 26am [facility] [address] [place], [place] [id number] Gastroenterology H&P Signed Patient: Tabitha Gonzalez MR#: [id number] : 1975 Acct:[id number] Age/Sex: 47 / F Adm Date: 3 Loc: Room: Type: [facility] Attending Dr: Yao Aguilera MD Copies to: [...] <Electronically signed by Yao Aguilera MD> 12/27/22825 [facility] Work Phone: History general Narrative - Reported* Type Description Date Medical History JUANITO (obstructive sleep apnea) Medical History Todd's esophagus Medical History GERD (gastroesophageal reflux di sease) Medical History Endometriosis Medical History Vitamin D deficiency Medical History Anxiety and depression Surgical History GALLBLADDER Surgical History TUBAL LIGATION Surgical History hysterectomy 04/2016 [facility] Other History general Narrative - Reported* Type [...] Hospitalization History See above Hospitalization History child [facility] PPTV Other Hospital Discharge instructions No data available for this section [facility] Additional Instructions DISCHARGE INSTRUCTIONS FOR [...] NOT operate machinery such as power tools, [email or web address] mowers, [employer], sewing machines, etc. for 24 hours. - [...] if you have any problems. -Office number [phone]. [facility] Work Phone: Progress note No data available for this section [facility]Reason for visit NarrativeGENERAL SURG REFERRAL [facility] PPTV Other Reason for visit NarrativeReferral Tami Jerri [facility] PPTV Other Summary Purpose Family History No Family History Records Found Relationship Condition Age at Onset Recorded Date/T monica family member Malignant neoplasm of colon Unknown family member Malignant neoplasm of stomach Unknown family member Malignant neoplasm of pancreas Unknown family member Malignant neoplasm of liver Unknown Not Specified Malignant neoplasm of skin Unknown Relationship Condition Age at Onset Recorded Date/T monica Not Specified Malignant neoplasm of skin Unknown Hypertension Unknown Heart disease Unknown Arthritis Unknown Fibromyalgia Unknown brother Family history of mental disorder Unknown Family history of other condition Unknown daughter Family history of other condition Unknown father Hypertension Unknown Sleep apnea Unknown Advance Directives No Advanced Directives Records Found Advance Directive Response Recorded Date/ Time Advance Directives No October 21 1:48am Advance Directive Response Recorded Date/ Time Advance Directives No June 3:50pm Chief Complaint and Reason for Visit Chief Complaint Gerd Chief Complaint Amb Documentation Reason for Referral Reason *FU 05/23 evaluate Diagnosis 1 Bloating (R14.0) Diagnosis 2 Alternating constipa tion and diarrhea (R19.8) Diagnosis 3 GERD (gastroesophage al reflux disease) (K21.9) Diagnosis 4 Hiatal hernia (K44.9 ) Referral Organization [facility] viviana Referring Provider First Name Tami Referring Provider Last Name Jerri Referring Provider Specialty Nurse Pract itioner Ref[facility] Referred Address [address] [place], [place],[address] Referred Provider Specialty Gastroentero logy Referral Priority Routine General Notes Priti Summers 04:52:06 PM >received today, attahments made, notes locked, referral faxed Reason *Waiting for appt evaluate Diagnosis 1 Chronic cough (R05.3 ) Diagnosis 2 Mild intermittent as thma without complication (J45.20) Referral Organization [facility] Referring Provider First Name Tami Referring Provider Last Name Rohrbacher Referring Provider Specialty Nurse Pract itioner Referred Organization [facility] Pulmonary Dise ase Referred Provider Steven Machado Referred Address [address],[facility] [address],[place], [place],[address] Referred Provider Specialty Pulmonary Di seases Referral Priority Routine General Notes Priti Summers 02:24:08 PM >received today, sent P2P Reason evaluate Diagnosis 1 Fibromyalgia (M79.7) Referral Organization [facility]inic Referring Provider First Name Tami Referring Provider Last Name Rohrbacher Referring Provider Specialty Nurse Pract ityesyr Referred Organization [facility] Referred Provider Indio Martínez Referred Address [address] [facility] [facility] [address],[place],[address] Referred Provider Specialty Rheumatology Referral Priority Routine General Notes Priti Summers 01:59:12 PM > Received fax, attachments made, note not locked Reason needs referral for Mica [facility] at [facility] Diagnosis 1 Moderate episode of recurrent major depressive disorder (F33.1) Referral Organization [facility] Medine linic Referring Provider First Name Tami Referring Provider Last Name Rohrbacher Referring Provider Specialty Nurse Pract itioner Referred Organization [facility] Referred Address [address] [place],[address] Referred Provider Specialty Psychiatry Referral Priority Routine General Notes Priti Summers 02:14:39 PM > Received fax, attatchments made, note is not locked Clinical Notes f: [id number] Additional Source Comments Source Comments (unrecognize d section and content) In the event this informatio n is protected by the Federal Confidentiality of Alcohol and Drug Abuse Patient Records regulations: The Federal rules restrict any use of the information to criminally investigate or prosecute any alcohol or drug abuse patient.[facility] Reason for Visit (unrecogniz ed section and content) Reason Comments Appointment Rescheduled Care Teams (unrecognized sec tion and content) Ehs Teacher Relationship Specialty Start Date End Date Dileep Laboy MD [address] [facility] [place] [address] PCP - General Family Practice 09/01/21 Team Status: Active Member Role Status Dates Dileep Laboy MD Primary Care Provider Active Team Status: Inactive Member Role Status Dates Dileep Laboy MD Primary Care Provider Active Yao Aguilera MD Attending Provider Active Team Status: Active Member Role Status Dates Tami Guthrie APRN INFORMATION SYSTEMS PROFESSOR-C Primary Care Provider Active Team Status: Active Member Role Status Dates Tami Guthrie APRN INFORMATION SYSTEMS PROFESSOR-C Primary Care Provider Active Start: August 22, 2023 Rabia Carter LPN Attending Provider Active S tart: August 22, 2023 INFORMATION SOURCE (unrecogn ized section and content) DATE CREATED AUTHOR 02/11/2022 [facility] DATE CREATED AUTHOR AUTHOR'S ORGANIZ ATION 02/14/2022 [facility] dical Specialist DATE CREATED AUTHOR AUTHOR'S ORGANIZ ATION 03/29/2022 [facility] DATE CREATED AUTHOR AUTHOR'S ORGANIZ ATION 08/22/2022 [facility] DATE CREATED AUTHOR AUTHOR'S ORGANIZ ATION 10/17/2023 [facility] DATE CREATED AUTHOR AUTHOR'S ORGANIZ ATION 12/13/2023 [facility] dical Specialists EPIC Goals (unrecognized section and content) Goals may be documented in a n alternate section FOR RECORDS PERTAINING TO PATIENTS WHO ARE [...] BE BASED ON THE PRIMARY CLINICAL RECORDS. [facility] [employer] [facility]. provides no warranty or guarantee of the accuracy or completeness of information in this document.
== END 2023-12-15 12:36 | disposition home or self-care (01) ==
LOC: MRI 12:35
PROVIDERS: PCP Nurse Practitioner Family; Visit Provider Orthopaedic Surgery
DX: M24.811 Other specific joint derangements of right shoulder, not elsewhere classified (principal); S46.811A Strain of other muscles, fascia and tendons at shoulder and upper arm level, right arm, initial encounter
CPT/HCPCS: 73221

== ENCOUNTER 2024-05-16 08:57 | Outpatient (OUT) | payer OTHER, SELFPAY ==
--- NOTE | 2024-05-16 09:02 | MM_ITS ---
Patient Name: OWEN ZARAGOZA MR#: [id number] : 1975 Exam Date: 05/16/2024 Ordering Doctor: APRYL MONTENEGRO PURIFICATION OPERATOR HELPER-C RADIOLOGY REPORT PROCEDURE: MM TOMOSYNTHESIS SCREENING BI COMPARISON: MAMMO ARYA DIAG DIG, 12/21/2010. MG MAMM ARYA DIAG W CAD DIG, 06/03/2013. INDICATIONS: Screening Calculator Name NCI Breast Cancer Risk Assessment Tool 5 Year Breast Cancer Risk 0.60% Lifetime Breast Cancer Risk 6.30% Personal Breast Cancer No Personal Ovarian Cancer No Treatments None Family Cancers None LOCATION: [facility] BREAST COMPOSITION: There are scattered areas of fibroglandular density. FINDINGS: DIAGNOSTIC CATEGORY 2--BENIGN FINDING. NO CHANGE FROM COMPARISON. RIGHT BREAST: No significant suspicious finding. LEFT BREAST: No significant suspicious finding. RECOMMENDATIONS: ROUTINE MAMMOGRAM AND CLINICAL EVALUATION IN 12 MONTHS. PLEASE NOTE: A NORMAL MAMMOGRAM DOES NOT EXCLUDE THE POSSIBILITY OF BREAST CANCER. A CLINICALLY SUSPICIOUS PALPABLE LUMP SHOULD BE BIOPSIED. Dictated by: Richard Torre MD on 05/16/2024 at 10:35 Approved by: Richard Torre MD on 05/16/2024 at 10:37
--- OUTSIDE RECORDS SUMMARY | 2024-05-16 09:06 | XMS_ITS | CCD ---
Author Organization [facility] Care Team Providers Care Associate Marketing Manager Name Role Phone Dileep Laboy MD Primary [...] Unavailable MD Dileep Laboy Primary Care Provider [phone] MD Yao Aguilera Attending Provider Tami Guthrie Unavailable Leticia Hansen Unavailable Israel Naranjo Unavailable Asaradha, Imad Admitting Unavailable Dileep Laboy Primary Care Unavailable Willy, Imad Attending Unavailable Tami Guthrie Attending Unavailable Tami Guthrie Primary Care Unavailable Tami Guthrie Admitting Unavailable JR. GREENFIELD GEORGE C Attending Unavaila GERARD Bangura Attending Unavailable JR. GREENFIELD GEORGE C Referring Unavaila CRISTIANO Tinajero Attending Unavailable JR. GREENFIELD GEORGE C Referring Unavaila CRISTIANO Tinajero Attending Unavailable JR. GREENFIELD GEORGE C Referring Unavaila john GREENFIELD JR., SAE Casanova Attending Unavaila ble CRISTIANO REED Attending Unavailable JR. JEAN PIERRE, SAE Casanova Referring Unavaila ble JR. JEAN PIERRE, SAE Casanova Attending Unavaila ble OBEY WELLER Attending Unavailable INDIO AUGUSTINE Referring Unavailable INDIO AUGUSTINE Referring Unavailable INDIO AUGUSTINE Attending Unavailable CRISTIANO REED Attending Unavailable JR. JEAN PIERRE, SAE Casanova Referring Unavaila ble CRISTIANO REED Attending Unavailable JR. JEAN PIERRE, SAE Casanova Referring Unavaila ble TODD NICHOLE Attending Unavailable MARLENY OLSON Referring Unavailable ROHRBACHER, [facility] Primary Care Unavailable ARDONMELYSSA FOSTER N Attending Unavailable ROHRBACHER, TAMI Referring Unavailable ROHRBACHER, [facility] Primary Care Unavailable Rohrbacher PARTS ROOM ASSISTANT-KILN WORKER, [facility] Primary Care [facility] er ALICIA WILSON Attending Unavailable ROHRBACHER, TAMI Referring Unavailable ROHRBACHER, [facility] Primary Care Unavailable ALICIA WILSON Attending Unavailable ROHRBACHER, TAMI Referring Unavailable ROHRBACHER, [facility] Primary Care Unavailable ALICIA WILSON Attending Unavailable ROHRBACHER, TAMI Referring Unavailable ROHRBACHER, [facility] Primary Care Unavailable TODD NICHOLE Attending Unavailable TODD NICHOLE Referring Unavailable ROHRBACHER, [facility] Primary Care Unavailable ARDON, MELYSSA N Referring Unavailable ROHRBACHER, [facility] Primary Care Unavailable ROHRBACHER, TAMI Referring Unavailable ROHRBACHER, [facility] Primary Care Unavailable ARDON, MELYSSA N Referring Unavailable ROHRBACHER, [facility] Primary Care Unavailable Allergies Allergy Classification Reported Allergen(s) Allergy Type Date of Onset Reaction(s) Facility (9 sources) Aspirin; Translations: [aspirin] Drug Allergy 12-10-19 23 Stomach ache (finding), GI Disturbance, Abdominal Pain [facility] (20 sources) busPIRone; Translations: [buspirone] Drug Allergy 12-10-19 23 Renal failure syndrome (disorder), Confusion [facility] (9 sources) Codeine; Translations: [codeine] Drug Allergy 12-03-19 23 Stomach ache (finding), GI Disturbance, Abdominal Pain [facility] (9 sources) Ethinyl Estradiol; Translations: [ethinyl estradiol] Drug Allergy 12-10-19 23 Bradycardia [facility] (9 sources) Famotidine; Translations: [famotidine] Drug Allergy 12-10-19 Abdominal pain (finding), GI Disturbance, Abdominal Pain [facility] (3 sources) HYDROmorphone; Translations: [hydromorphone] Drug Allergy [facility] (11 sources) levoFLOXacin; Translations: [levofloxacin] Drug Allergy 12-03-19 23 [facility] (10 sources) Meperidine; Translations: [meperidine] Drug Allergy 12-24-19 17 Allergy, Unspecified, Not Elsewhere Classified [facility] (9 sources) Metoclopramide; Translations: [metoclopramide] Drug Allergy 12-10-19 Abdominal pain (finding), Abdominal Pain, GI Disturbance [facility] (13 sources) Penicillins; Translations: [penicillins] Drug allergy 05-15-18 87 Anaphylaxis (disorder) [facility] (3 sources) Sulfamethoxazole ; Translations: [sulfamethoxazol e] Drug Allergy [facility] (1 source) Aspirin Drug Allergy 02-27-20 13 [facility] (1 source) busPIRone Drug Allergy [facility] (1 source) Codeine Drug Allergy 02-27-20 13 [facility] (1 source) Levamisole Drug Allergy 02-27-20 13 [facility] (1 source) levoFLOXacin Drug Allergy [facility] (1 source) Meperidine Drug Allergy 03-05-20 13 [facility] (1 source) Omeprazole Drug Allergy [facility] (1 source) Sulfonamides (Antibiotic) Drug allergy (disorder) 02-27-20 13 [facility] (13 sources) lamoTRIgine Drug Allergy 12-28-19 23 Unknown, [facility] (14 sources) Penicillin Drug Allergy Unknown [facility] Other (14 sources) Sulfonamides (Antibiotic) Propensity to adverse reactions Unknown [facility] Other (14 sources) DEMERAL Propensity to adverse reactions Unknown [employer] [facility] [employer] Other (9 sources) Sulfonamides (Antibiotic); Translations: [Sulfa (Sulfonamide Antibiotics)] Allergy to substance 12-24-19 Hives [facility] (1 source) busPIRone Drug Allergy 06-12-19 [facility] (1 source) lamoTRIgine Drug Allergy 12-28-19 [facility] (1 source) levoFLOXacin Drug Allergy 12-28-19 [facility] (1 source) Meperidine Drug Allergy 06-12-19 [facility] (6 sources) Citalopram; Translations: [CITALOPRAM] Drug Allergy 12-24-19 Other (See Comments) [facility] (6 sources) FLUoxetine; Translations: [FLUOXETINE] Drug Allergy 12-24-19 [facility] (6 sources) hydrOXYzine; Translations: [HYDROXYZINE] Drug Allergy 12-26-19 [facility] (6 sources) Sertraline; Translations: [SERTRALINE] Drug Allergy 12-24-19 [facility] (5 sources) [place] silk preparation; Translations: [CORN] Drug Allergy 02-13-20 Cough, Headache [facility] (5 sources) peanut allergenic extract; Translations: [PEANUT] Drug Allergy 02-13-20 Cough, Headache [facility] (5 sources) Wheat preparation; Translations: [WHEAT] Drug Allergy 02-13-20 Cough, Headache [facility] Medications Current Medications Medication Drug Class(es) Dates [...] needed for wheezing, 60 EA, Refill(s) 0, [facility]/pharmacy #[id number], 163, cm, 08/10/19 11:04:00 EDT, Height/Length [...] Active cetirizine hydrochloride 10 mg oral tablet (19 sources) Histamine-1 Receptor Antagonist Start: 12-27-2022 Cetirizine Active MG TABLET December 27, 2022 12:00am Start: 12-21-2022 [facility] Cetirizine HCl 10 MG 1 tablet Orally Once a day for 90 days Dec, Active cholecalciferol 0.125 mg oral tablet (3 sources) Vitamin D take 1 tablet by mouth in the morning cholecalciferol, vitamin D3, 5,000 units tablet Take 1 tablet (5,000 Units total) by mouth in the morning. Vitamin D3 and K12 combo. Active dicyclomine hydrochloride 20 mg oral tablet (2 sources) Anticholinergic Start: 2018 take 20 mg by mouth four times daily Dicyclomine Active 20 MG PO Four times daily October 21, 2018 12:00am doxycycline monohydrate 100 mg oral tablet (3 sources) Tetracycline-class Drug Start: 2023 take 1 tablet by mouth in the morning, then take 1 tablet by mouth at bedtime doxycycline (ADOXA) 100 MG tablet Take 1 tablet (100 mg total) by mouth in the morning and 1 tablet (100 mg total) before bedtime. 12/18/2023 Active DULoxetine 60 mg delayed release oral capsule (7 sources) Serotonin and Norepinephrine Reuptake Inhibitor Start: 2023 take 1 capsule by mouth in the morning DULoxetine (CYMBALTA) 60 mg capsule Take 1 capsule (60 mg total) by mouth in the morning. 07/12/2023 Active take [address] [facility] every twenty-four hours Cymbalta 60 MG 1 capsule Orally Once a day Active fluconazole 150 mg oral tablet (3 sources) Azole Antifungal Start: 12-18-2023 take 1 tablet by mouth once daily as needed fluconazole (DIFLUCAN) 150 mg tablet Take 1 tablet (150 mg total) by mouth daily as needed. 12/18/2023 Active fluticasone propionate 0.05 mg/actuat metered dose nasal spray (3 sources) Corticosteroid Start: 12-18-2023 take 1 spray(s) nasal route in the morning fluticasone propionate (FLONASE) 50 mcg/actuation nasal spray Administer 1 spray into each nostril in the morning. 12/18/2023 Active gabapentin 600 mg oral tablet (20 sources) Anti-epileptic Agent Start: 12-27-2022 take 600 [...] hrs Active lamoTRIgine 150 mg oral tablet (8 sources) Mood Stabilizer, Anti-epileptic Agent Start: 07-12-2023 take 1 tablet by mouth in the morning lamoTRIgine (LaMICtal) 150 mg tablet Take 1 tablet (150 mg total) by mouth in the morning. 07/12/2023 Active Start: 07-12-2023 take 100 mg by mouth once vivek y Lamotrigine Active 100 MG PO Daily July 12, 2023 1:00am take 1 tablet by pankaj th every twenty-four hours LaMICtal 100 MG 1 tablet Orally Once a day Active lurasidone hydrochloride 20 mg oral tablet (1 source) Atypical Antipsychotic Start: 07-12-2023 take 20 mg by mouth once daily Lurasidone Active 20 MG PO Daily July 12, 2023 1:00am meloxicam 15 mg oral tablet (20 sources) Nonsteroidal Anti-inflammatory Drug Start: 12-16-2023 take 1 tablet by mouth in the morning meloxicam (MOBIC) 15 mg tablet Take 1 tablet (15 mg total) by mouth in the morning. 12/16/2023 Active Start: 11-29-2019 take [address] [facility] once daily meloxicam 10 mg oral capsule 10 mg = 1 cap(s), Oral, Daily, Refills(s) 0 Start Date: 11/29/19 Status: Ordered Start: 10-21-2018 take 15 mg by mouth once daily Meloxicam Active 15 MG PO Daily October 21, 2018 12:00am menthol 0.04 mg/mg topical gel (3 sources) menthol (BIOFREE ZE, MENTHOL,) 4 % gel Apply 1 Application topically daily as needed. Active montelukast 10 mg oral tablet (17 sources) Leukotriene Receptor Antagonist Start: take 1 tablet by mouth once daily Montelukast Active 0 .ROUTE .COMPLEX August 18, 2023 12:20pm TAKE 1 TABLET BY MOUTH EVERY DAY FOR 90 DAYS Start: 06-30-2023 End: 08-18-2023 take 1 tablet by mouth in the morning montelukast (SINGULAIR) 10 mg tablet Take 1 tablet (10 mg total) by mouth in the morning. 08/18/2023 Active Start: 02-10-2023 take 1 tablet by pankaj th every twenty-four hours Montelukast Sodium 10 MG 1 tablet Orally Once a day for 90 days Jan, Active mupirocin 0.02 mg/mg topical ointment (3 sources) RNA Synthetase Inhibitor Antibacterial Start: 12-18-2023 mupirocin (BACTROBAN) 2 % ointment Apply 1 Application topically in the morning and 1 Application before bedtime. 12/18/2023 Active omeprazole 20 mg delayed release oral capsule (20 sources) Proton Pump Inhibitor Start: 12-15-2023 take 1 capsule by mouth once daily before breakfast omeprazole (PriLOSEC) 20 mg capsule Take 1 capsule (20 mg total) by mouth every morning before breakfast. 12/15/2023 Active Start: 12-27-2022 take 40 mg by mouth twice vivek y Omeprazole Active 40 MG PO Twice daily 180 90 December 27, 2022 8:44am Start: 12-27-2022 End: 12-27-2022 take 1 capsule by mouth once daily Omeprazole (Prilosec) 20 mg Capsule,Delayed Release(Dr/Ec) Discontinued 20 MG PO Daily December 27, 2022 12:00am December 27, 2022 8:45am polyethylene glycol [id number] [id number] mg / potassium chloride 2970 mg / sodium bicarbonate 6740 mg / sodium chloride 5860 mg / sodium sulfate 31437 mg powder for oral solution (2 sources) [...] Inhalation, QID Wheezing, 1 EA, Refill(s) 0, [facility]/pharmacy #[id number], 162.5, cm, 01/03/20 10:07:00 EDT, Height/Length [...] Problem Date Documented Da te Episodic/Chronic Abdominal pain (20 sources) Left upper quadrant pain; Translations: [Left upper quadrant pain] 10-21-2018 Episodic Administrative/social admission (7 sources) Dietary counseling and surveillance; Translations: [Other specified counseling] Onset: 4 Episodic Anxiety disorders (8 sources) Anxiety; Translations: [Chronic post-traumatic stress disorder] Onset: 7 10-30-2018 Chronic Asthma (13 sources) Mild intermittent [...] Translations: [ENCOUNTER FOR IMMUNIZATION] Onset: 3 Episodic Malaise and fatigue (2 sources) Other fatigue; Translations: [Other fatigue] Onset: 4 Episodic Mood disorders (18 sources) Depressive disorder; Translations: [Recurrent major depressive episodes, moderate ] Onset: 7 03-01-2022 Chronic Nausea and vomiting (1 source) [...] Chronic Other nutritional; endocrine; and metabolic disorders (8 sources) Morbid obesity; Translations: [Morbid (severe) obesity due to excess calories] 11-29-2019 Chronic Other nutritional; endocrine; and metabolic disorders (1 source) Body mass index (BMI) 40.0-44.9, adult Chronic Other nutritional; endocrine; and metabolic disorders (4 sources) Morbid (severe) obesity due to excess calories; Translations: [Morbid (severe) obesity due to excess calories] Onset: 4 Chronic Other nutritional; endocrine; and metabolic disorders [...] or radiculopathy, cervical region] Chronic Substance-related disorders (19 sources) Smoker; Translations: [Nicotine dependence] Onset: 4 04-23-2020 Chronic Comment on above: Added secondary to d ocumentation in Social History. Unclassified (1 source) New Patient Onset: 4 Unclassified (1 source) Nutrition Counseling Onset: 4 Past or Other Problems Problem Classification Problem Date Documented Da te Episodic/Chronic Abdominal hernia (8 sources) Hiatal hernia; Translations: [Diaphragmatic hernia without obstruction or gangrene] Onset: 12-26-2023 10-21-2018 Episodic Other gastrointestinal disorders (1 source) Dysphagia, [...] Test Name Value Interpretation Reference Range Facility FL UGI WITH ESOPHAGUSon 04-14 FL UGI WITH ESOPHAGUS FL UGI WITH ESOPHAGUS History: Preoperative assessment for bariatric surgery. Exam/Technique: Double contrast upper GI exam. The patient ingested effervescent granules, thick and thin barium in the upright and recumbent positions. 1.6 minutes of fluoroscopy time was utilized. Total images: 14 Reference air kerma 40.5 mGy. Comparison: None Findings: When relaxed esophagus demonstrates normal contour without ulceration or stricture. Reflux to mid esophagus demonstrated as well as intermittent tertiary contractions. No hiatal hernia. Gastric contour is normal. No mucosal lesions, ulceration or inflammation. Duodenal sweep is retroperitoneal and the ligamentum of Treitz is within the left upper quadrant. Normal proximal mucosal fold pattern of small bowel. IMPRESSION: * Reflux to midesophagus with intermittent tertiary contractions. Otherwise negative upper GI exam. Finalized by Rogers Taveras DO on 05/01/2024 10:45 AM Normal [facility] CBC AND AUTO DIFFon 04-16-20 ABSOLUTE BASOPHIL 0.1 X10E9/L Normal 0.0-0.2 [facility] Comment on above: Performed By: #### C BCA, 3016-3, HA1C, 2498-4, LIVR, 2731-8, 2132-9, 68990-9 #### [facility] ([id number]) [address], [address] [place] [address] ABSOLUTE NEUTROPHIL 6.3 X10E9/L Normal 1.5-6.6 [facility] Comment on above: Performed By: #### C BCA, 3016-3, HA1C, 2498-4, LIVR, 2731-8, 2132-9, 27423-0 #### [facility] ([id number]) [address], [address] [place] [address] Basophils/100 WBC (Bld) 0.6 % Normal [facility] Comment on above: Performed By: #### C BCA, 3016-3, HA1C, 2498-4, LIVR, 2731-8, 2132-9, 42824-2 #### [facility] ([id number]) [address] [place] [address] Eosinophils (Bld) [#/Vol] 0.3 10*3/uL Normal 0.0-0.4 [facility] Comment on above: Performed By: #### C BCA, 3016-3, HA1C, 2498-4, LIVR, 2731-8, 2131-9, 96918-6 #### [facility] ([id number]) [address], [facility] [address] [place] [address] Eosinophils/100 WBC (Bld) 2.5 % Normal [facility] Comment on above: Performed By: #### C BCA, 3016-3, HA1C, 2498-4, LIVR, 2730-8, 2131-9, 97689-5 #### [facility] ([id number]) [address] [place] [address] Erythrocyte distribution width (RBC) [Ratio] 14.4 % Normal 11.5-15.0 [facility] Comment on above: Performed By: #### C BCA, 3016-3, HA1C, 2498-4, LIVR, 2730-8, 2131-9, 15083-2 #### [facility] ([id number]) [address] [place] [address] Hematocrit (Bld) [Volume fraction] 44.9 % Normal 35-47 [facility] Comment on above: Performed By: #### C BCA, 3016-3, HA1C, 2498-4, LIVR, 2731-8, 2131-9, 06297-7 #### [facility] ([id number]) [address] [place] [address] Hemoglobin (Bld) [Mass/Vol] 15.2 g/dL Normal 11.7-15.5 [facility] Comment on above: Performed By: #### C BCA, 3016-3, HA1C, 2498-4, LIVR, 2731-8, 2132-01, #### [facility] ([id number]) [address], [address] [place] [address] Lymphocytes (Bld) [#/Vol] 3.4 10*3/uL Normal 1.0-3.5 [facility] Comment on above: Performed By: #### C BCA, 3016-3, HA1C, 2498-4, LIVR, 2730-12, 2132-01, 72767-8 #### [facility] ([id number]) [address], [address] [place] [address] Lymphocytes/100 WBC (Bld) 31.1 % Normal [facility] Comment on above: Performed By: #### C BCA, 3016-3, HA1C, 2498-4, LIVR, 2730-12, 2132-01, 24485-8 #### [facility] ([id number]) [address] [place] [address] MCH (RBC) [Entitic mass] 31.0 pg Normal 27-34 [facility] Comment on above: Performed By: #### C BCA, 3016-3, HA1C, 2498-4, LIVR, 2730-12, 2132-01, 07786-7 #### [facility] ([id number]) [address], [address] [place] [address] MCHC (RBC) [Mass/Vol] 33.8 g/dL Normal 32-36 [facility] Comment on above: Performed By: #### C BCA, 3016-3, HA1C, 2498-4, LIVR, 2730-12, 2132-01, 42949-7 #### [facility] ([id number]) [address] [place] [address] MCV (RBC) [Entitic vol] 92 fL Normal 80-100 [facility] Comment on above: Performed By: #### C BCA, 3016-3, HA1C, 2498-4, LIVR, 2731-8, 2-9, 82229-6 #### [facility] ([id number]) [address] [place] [address] Monocytes (Bld) [#/Vol] 0.9 10*3/uL Normal 0-0.9 [facility] Comment on above: Performed By: #### C BCA, 3016-3, HA1C, 2498-4, LIVR, 2731-8, 2131-9, 43546-3 #### [facility] ([id number]) [address], [facility] [address] [place] [address] Monocytes/100 WBC (Bld) 8.1 % Normal [facility] Comment on above: Performed By: #### C BCA, 3016-3, HA1C, 2498-4, LIVR, 2730-8, 2131-9, 98656-4 #### [facility] ([id number]) [address], [address] [place] [address] Neutrophils/100 WBC (Bld) 57.7 % Normal [facility] Comment on above: Performed By: #### C BCA, 3016-3, HA1C, 2498-4, LIVR, 1-8, 2131-9, 33612-2 #### [facility] ([id number]) [address], [address] [place] [address] Platelet mean volume (Bld) [Entitic vol] 7.4 fL Normal 7-12 [facility] Comment on above: Performed By: #### C BCA, 3016-3, HA1C, 2498-4, LIVR, 2731-8, 2131-9, 68553-8 #### [facility] ([id number]) [address], [address] [place] [address] Platelets (Bld) [#/Vol] 375 10*3/uL Normal 150-450 [facility] Comment on above: Performed By: #### C BCA, 3016-3, HA1C, 2498-4, LIVR, 2731-8, 2131-9, 62081-6 #### [facility] ([id number]) [address] [place] [address] RBC COUNT 4.90 X10E12/L Normal 3.80-5.20 [facility] Comment on above: Performed By: #### C BCA, 3016-3, HA1C, 2498-4, LIVR, 2731-8, 2131-9, 71012-0 #### [facility] ([id number]) [address] [place] [address] WBC (Bld) [#/Vol] 11.0 10*3/uL Normal 4.0-11.0 [facility] Comment on above: Performed By: #### C BCA, 3016-3, HA1C, 2498-4, LIVR, 2730-8, 2131-9, 75948-8 #### [facility] ([id number]) [address] [place] [address] HGB A1C (GLYCO-HGB)on 2023 Glucose [Mass/Vol] 171 mg/dL Normal [facility] Comment on above: Performed By: #### C BCA, 3016-3, HA1C, 2498-4, LIVR, 1-8, 2131-9, 93369-9 #### [facility] ([id number]) [address] [place] [address] HbA1c (Bld) [Mass fraction] 7.6 % High 4.4-5.6 [facility] Comment on above: Result Comment: NOTE ADA Guidelines Result HgbA1c Normal : less than 5.7 % Prediabetes : 5.7 % to 6.4 % Diabetes : > 6.4 % Use with caution in patients with abnormal hemoglobin variants as the half-life of red blood cells and in vivo glycation rates are affected. Performed By: #### C BCA, 3016-3, HA1C, 2498-4, LIVR, 2731-8, 2131-9, 85538-6 #### [facility] ([id number]) [address] [place] [address] IRONon 04-16-2024 Iron [Mass/Vol] 75 ug/dL Normal 50-170 [facility] Comment on above: Performed By: #### C BCA, 3016-3, HA1C, 2498-4, LIVR, 2731-8, 9, 67855-2 #### [facility] ([id number]) [address], [address] [place] [address] LIVER PANELon 04-16-2024 Albumin [Mass/Vol] 4.3 g/dL Normal 3.2-5.3 [facility] Comment on above: Performed By: #### C BCA, 3016-3, HA1C, 2498-4, LIVR, 2731-8, 2131-9, 04716-7 #### [facility] ([id number]) [address], [address] [place] [address] ALP [Catalytic activity/Vol] 84 U/L Normal 39-130 [facility] Comment on above: Performed By: #### C BCA, 3016-3, HA1C, 2498-4, LIVR, 2731-8, 2131-9, 83501-5 #### [facility] ([id number]) [address] [place] [address] ALT [Catalytic activity/Vol] 38 U/L High 0-31 [facility] Comment on above: Performed By: #### C BCA, 3016-3, HA1C, 2498-4, LIVR, 2731-8, 2131-9, 13722-3 #### [facility] ([id number]) [address] [place] [address] AST [Catalytic activity/Vol] 25 U/L Normal 0-41 [facility] Comment on above: Performed By: #### C BCA, 3016-3, HA1C, 2498-4, LIVR, 2731-8, 2131-9, 58133-6 #### [facility] ([id number]) [address] [place] [address] Bilirubin [Mass/Vol] 0.3 mg/dL Normal 0.3-1.2 [facility] Comment on above: Performed By: #### C BCA, 3016-3, HA1C, 2498-4, LIVR, 273-8, 2131-9, 15099-7 #### [facility] ([id number]) [address], [address] [place] [address] Bilirubin.direct [Mass/Vol] 0.1 mg/dL Normal 0.0-0.4 [facility] Comment on above: Performed By: #### C BCA, 3016-3, HA1C, 2498-4, LIVR, 2730-8, 9, 52026-1 #### [facility] ([id number]) [address] [place] [address] Protein [Mass/Vol] 7.7 g/dL Normal 6.0-8.0 [facility] Comment on above: Performed By: #### C BCA, 3016-3, HA1C, 2498-4, LIVR, 2731-8, 2131-9, 26776-5 #### [facility] ([id number]) [address] [place] [address] Parathyrin.intact [Mass/Vol] on 04-16-2024 PTH INTACT 43 pg/mL Normal 12-88 [facility] Comment on above: Performed By: #### C BCA, 3016-3, HA1C, 2498-4, LIVR, 2731-8, 9, 86081-6 #### [facility] ([id number]) [address] [place] [address] TSH Qnon 04-16-2024 TSH 0.69 uIU/mL Normal 0.49-4.67 [facility] Comment on above: Result Comment: NEW REFERENCE RANGE FOR PEDIATRIC PATIENTS Performed By: #### C BCA, 3016-3, HA1C, 2498-4, LIVR, 2730-8, 9, 56671-8 #### [facility] ([id number]) [address], [address] [place] [address] VITAMIN B12on 04-16-2024 Cobalamin (Vitamin B12) [Mass/Vol] 218 pg/mL Normal 180-914 [facility] Comment on above: Performed By: #### C BCA, 3016-3, HA1C, 2498-4, LIVR, 8, 2132-01, 53158-5 #### [facility] ([id number]) [address], [address] [place] [address] Vitamin D+Metabolites [Mass/ Vol]on 04-16-2024 VITAMIN D 25 HYD TOT 24.6 ng/mL Low 30-100 [facility] Comment on above: Result Comment: Vitamin D status 25 [place] Vitamin D Deficiency <20 ng/mL Insufficiency 20-29 ng/mL Sufficiency 30-100 ng/mL Toxicity >100 ng/mL NOTE: A pediatric reference range has not been established by the academic support assistant of this kit. The [place] [employer] recommends a Vitamin D level of = or >20ng/mL in infants and children. Performed By: #### C BCA, 3016-3, HA1C, 2498-4, LIVR, 1-8, 9, 01465-2 #### [facility] ([id number]) [address], [address] [place] [address] CT ABDOMEN WO CONTon 024 CT ABDOMEN WO CONT CT ABDOMEN WO CONT CT of the abdomen without contrast dated 01/31/2024 at 1:29 PM INDICATION: Abdominal wall hernia, incisional hernia, anterior abdominal wall pain. PROCEDURE: Automatic radiation exposure lowering techniques were utilized. All CT scans at this facility use dose modulation, iterative reconstruction, and/or weight based dosing when appropriate to reduce radiation dose to as low as reasonably achievable.. A nonenhanced CT of the abdomen and sagittal and coronal reformats. FINDINGS: No comparisons available. Fatty infiltration of the liver. Given the lack of intravenous contrast, no suspicious lesions seen in the liver, spleen, adrenal glands, or pancreas. The gallbladder is surgically absent. No kidney stones or hydronephrosis. There is a small umbilical hernia containing fat. There is a supraumbilical hernia to the left of midline measuring 2.7 x 1.8 cm containing fat. IMPRESSION: 1. Left para midline supraumbilical hernia containing fat. 2. Small umbilical hernia containing fat. 3. Fatty infiltration of the liver. Finalized by Artur Jara MD on 02/01/2024 7:59 AM Normal [facility] Amphetamine Screen Ql (U)Ord ered By: Yao Aguilera on 12-27-2022 Amphetamines Ql (U) Negative Negative [facility] Barbiturates [Presence] in U rine by Screen methodOrdered By: Yao Aguilera on 12-27-2022 Barbiturates Screen Ql (U) Negative Negative [facility] Benzodiazepines Screen Ql (U )Ordered By: Yao Aguilera on 12-27-2022 Benzodiazepines Ql (U) Negative Negative [facility] Benzoylecgonine [Presence] i n Urine by Screen methodOrdered By: Yao Aguilera on 12-27-2022 Benzoylecgonine Screen Ql (U) Negative Negative [facility] Cannabinoids [Presence] in U rine by Screen methodOrdered By: Yao Aguilera on 12-27-2022 Cannabinoids Screen Ql (U) Negative Negative [facility] Comment on above: These are unconfirme d results and should not be used for legal purposes. Drug Cut-Off Concentration: AMPH 1000 ng/mL KARMA 200 ng/mL ZOILA 200 ng/mL COCM 300 ng/mL OP 300 ng/mL PCP 25 ng/mL THC 20 ng/mL Drug Screen,Urineon 12-28-19 Amphetamine Screen,Urine Negative Normal Negative [facility] Comment on above: Performed By: #### U RDS #### [address] Barbiturate Screen,Urine Negative Normal Negative [facility] Comment on above: Performed By: #### U RDS #### [address] Benzodiazepines Screen,Urine Negative Normal Negative [facility] Comment on above: Performed By: #### U RDS #### [address] Cannabinoid Screen,Urine Negative Normal Negative [facility] Comment on above: Result Comment: Thes e are unconfirmed results and should not be used for legal purposes. Drug Cut-Off Concentration: AMPH 1000 ng/mL KARMA 200 ng/mL ZOILA 200 ng/mL COCM 300 ng/mL OP 300 ng/mL PCP 25 ng/mL THC 20 ng/mL PERFORMED BY: [place] [address] PATHOLOGIST [employer] LOC LANDRY M.D. Performed By: #### U RDS #### [address] Cocaine Screen,Urine Negative Normal Negative [facility] Comment on above: Performed By: #### U RDS #### [address] Opiate Screen,Urine Negative Normal Negative [facility] Comment on above: Performed By: #### U RDS #### [address] Phencyclidine Screen,Urine Negative Normal Negative [facility] Comment on above: Performed By: #### U RDS #### [place] [address] [place] Is[place] 12-27-2022 L Specimen: [id number] Received: 12/27/22 Status: HERNAN Jefferson Num: [id number] Spec Type: Surgical Subm Dr: Yao Aguilera MD Tissues: A GASTRIC FOR HP (GASTRIC HP) Procedures: HE/2, Gross/Micro L4, H PYLORI Age/ Patient Sex Location Account Attending Physician Tabitha Zaragoza 47/F [id number] Yao Aguilera MD SPEC NUM: [id number] RECD: 12/27/22 STATUS: HERNAN JEFFERSON NUM: [id number] ELLA: 12/27/22- [facility] DR: Yao Aguilera MD ENTERED: 12/27/[address] [facility] [address]: SPEC TYPE: Surgical DEPT: S [...] The microscopic examination confirms the diagnosis. Specimen: [id number] Received: 12/27/22 Status: HERNAN Jefferson Num: [id number] Spec Type: Surgical Subm Dr: Yao Aguilera MD Tissues: A GASTRIC FOR HP (GASTRIC HP) Procedures: HE/2, Gross/Micro L4, H PYLORI Patient: Tabitha Zaragoza [id number] (Continued) Specimen: [id number] Received: 12/27/22 (Continued) Signed (signature on file) Judson Jo MD 12/28/222007 Specimen: [id number] Received: 12/27/22 Status: HERNAN Brian Num: [id number] Spec Type: Surgical Subm Dr: Yao Aguilera MD Tissues: A GASTRIC FOR HP (GASTRIC HP) Procedures: HE/2, Gross/Micro L4, H PYLORI Patient: LisaTabitha [id number] (Continued) Specimen: [id number] Received: 12/27/22 (Continued) CPT Codes 91243, 41495 Specimen: [id number] Received: 12/27/22 Status: HERNAN Jefferson Num: [id number] Spec Type: Surgical Subm Dr: Yao Aguilera MD Tissues: A GASTRIC FOR HP (GASTRIC HP) Procedures: HE/2, Gross/Micro L4, H PYLORI Patient: Tabitha Zaragoza [id number] (Continued) Signed (signature on file) Judson Jo MD 12/28/222007 Normal [facility] Opiates [Presence] in Urine by Screen methodOrdered By: Yao Aguilera on 12-27-2022 Opiates Screen Ql (U) Negative Negative [facility] Phencyclidine Screen Ql (U)O rdered By: Yao Aguilera on 12-27-2022 Phencyclidine Ql (U) Negative Negative [facility] Insurance Correspondence Off icepascale 03-29-2022 Insurance Correspondence Office [id number] #4.00CD:127 Normal [facility] Coding Summary.on 03-24-2022 Coding Summary. CD:[id number] Gh0bWw+PGhlYWQ+PE1FV OAiO56dvJUczP9UQ7qTU L0HDZWOAWTCMO1THL4wu NG0COfjS9JpwcPo PcrckZOpKS40PIk9MNV9 mWmsNOdwvH6gcFXxH0p4 XwDjON13vQ03TOyyMIAp PfH2BsTipiblvWVa N4vySxPohFFkKio+PHRh YmxlIHdpZHRoPScxMDAl HmBkzJtlXP6mBd1yNDIx LWNvbGxhcHNlOiBj r9enBMWoMVsgGZ3ljOud N0NcaAT1TQYwp9y5Qs48 dHI+FIUgHIX7cShyDPul m872HyCxc3bbCUS5 bBFhZIwyBLO0D54zt7C0 IGRzWARdGAY7tUG5bH3j hDpqszdbS9PilSQxUuT7 RCQ0lMPpmM3tvZlw cupakH6dFae+F33AQK5F HTBZQQ9OMoo7O2AgWvkh dHI+QJ99UFAmRR31eJEh zYOls4vilDz2JjMe PHJnCGW1pDjvIEiqe0Wm WBHdY03amQDzb4F3TNMl hSgbnJAkFzVelXE1tZ1o XOoehzeur4vwwbtb Lxucn0toza68rF32U16y TTgbEICfZPI4VMBiWNUj vUorar8knF7uUz3+IDxj z6sxi4euyMz9HrHk EBKarvCjpVweUTF5b7Kr Si88U5XopRvqu3ZoKsi7 vw77bTVrt4U4iND3WVlk KNFqcW4bDSjvVkL8 RLDlGiXcwL92kKTtVFpf Ol8wgYmcrCwsMN4qNIQy hvwpSIZqqX6zGFEayWIy nYwiUV7lPQUlgrcy e392VjOhCKM5LWQmkTEp T3JfeH2zQgUoWPMaRXMf W5QwlLNeVGfiF497FVtg BcM5WLHzkhJhY2Bn TPVqcOnqGlB4k5Q1Da4B w2ZiowqnVBJ7GMpeCEIy TyEyVdCdCyW7B0KiPqk1 APKjzAasFZ8gG0Gp JOGzbbhrleyloUH4ABNe OXOkpN42oHKuMQsqJq3w y5U8r633HSTeOXBevB12 Xs9oiBftPLWhgEQL jI8ysiorf6zcmsmaLrQf BGRxCHx8VHr1GLPxhSyt UsWcNFR2XdC3IFK0oSZl jR4ceOqiokgurA9t Oyc+A67yrC7oZWD8JCJ2 sgopQDMjmjWmWD54RJ79 G3KfXopkuDDbeOC+PGRp fyItpFvkFT9rAqDr b1dfv9ViEEzsF9PjIGZe CVbxZrk5SFIzTFR8pND3 nG4aNLQdYJhup8D8rJG6 U2GmomZcab0vp6wb OPNvTMwrQ77tgBUmm6M6 YFIkdOX8DLOxjCrlZqGe tB24Zbk+HXCvwSnoo8Dx Aqbdr3jvo4kstHh4 IjMwJSIgdmFsaWduPSJ0 f2NpZr97R16eCDgeICVm JYXuMKZsQEXxuTxjru1h yJ4kUu3+PGNvbCB3 sXD1qE0kYHYrOdX5UXbt K084VcNrhXFjTwahc3hs p2dbbKq6IzWaHNWthvLs pBigSJG6x5EzTm53 I88sZZjeTGIbXNIbCIGr IEEyrSfthw5ftP8cKf2+ NM2yt3noki72dI59rIZ+ CGUhNAW6aPcfGXva GXIeqD3sULyfUcA0GVYw DpXpmX44uEHhIAjvQg5r dKehvZyxVL7dNAXikhjy r065RiRne0pyAEYj pCLfFUvuAZF2Q51dw4R3 DXBvGIGxRIX4kLZ6jY4n bGlnbjogbGVmdDsgdmVy cUnyYNxiBZjiH744 IHRvcDsnPlBhdGllbnQg ZqJrFIr1U9NnIcu1ENTp lRhkTF1fqQKgINqfQi0p uLiuiTgeHE4fCACc zgwlg411AoNvf9meRMBb sFOuTCffLNF5P69kj9K7 NUHlNOWuUXY0gWR0bV1d bGlnbjogbGVmdDsg rhRsyPndEIqnMVsjT977 IHRvcDsnPkJpcnRoIERh gSJ0FN06VW18aQZvv6C0 mTD2E7AcANEcpczl elbbiID9HWOgHMSaxE65 Td7saJnqIa0oYLPfTAX4 RHKeiUXvR4OmyN0dMxNg XHMhFYYkZ5SubQLd QWrvP411EYvxEtQ1QJIn igQlH6QqCXIojVzqKhN9 a7E1Au1TD2M9WD42QK58 iMUtw4N1dBF8N5Pc AMFmrdymwqegdRS9YBYs KBShlJ50Dx7qaXkiRg8t SWUaLKH5LQDcsXZjZ4Ec aY3fQjWgPMLmLRIf O9WkfTGwXQqeZ518UJue WfB7QTAyieJmS2OeQYUl cNwuOiB7e7X8Jc7WZHw0 PY98VP75kKEiy0T3 nYE7C3JcAQMuldwnnoqi qRD2FMUtGKQsbC49Ls9a rWpcRy7eWFNbVYJ0KIYz iVBoC2DkzX9cVfEf ZXDmEPBhY5XonMUvPZyj T781VEdpSbF5LXLzcmGn C2HiQQQclVhdCsT6j7D5 Pc4SDNCvXB16TBE0 pQB2ZP67AU88G5LaZobi dGFibGU+PHRhYmxlIHdp ZHRoPScxMDAlJyBzdHls VE2nJv3pUDUcSEQg lAkkdKUdYqBak0eiOXOg ZYlxZF3csRcvZ2QhmYV2 EANof7j8Bn73P46mL6Fb dXA+DXYsoAB5mNL2 jT5hAwLtRpA4LSosQ666 TgDiaAPrNjdxr8cgz8sh gBz9IvV9BLHaaxRkuPjr APF1e5OcZi13L74q IHdpZHRoPSIxNSUiIHZh oVdkjb7tkW7pJc8+PGNv dPD9uIX2fM9zMhMiCiD3 KBwmV887SfYgtDCe Inynl7iaz8yygLa3McVy ATAkjfYkzZnrKIT6n9Kp Gl09J1KblFbql1WoRxm6 no11aVGit3V4oVQ5 M1VuVSVheiahwQZqoQne YY2kYZYewpgkMUYxuZ5f UGEpF5n2XsNpTtX1UHhw K7ReaaO9LCRynHDv NRgvJFB1U80ee7G8PRQt OVHhWYU3tSG8rI4bgSir bjogbGVmdDsgdmVydGlj MBmmPXxkK980WIFp hCzmURQukL8aZAOssCSs sWfuEC9yBITqrvfsPx4P U0PBWrdvJB2TXEkXTKc7 J0FrMfm9ANYnoKbg LA8bcFQfHOwrXj1avFoy oRpzIA6pZFXqtefdQMRs lZ1yFGNolOUphKwyVV7f CZXvwmqbv868LlEu QJS3MWYgfDJcG3ZkpK8u OwMdEQSgZYAtD5LmkNDj TDlgP710JImhRjA2KEQe viRlD8ToUHAmlHic QnQ9g4R2Dm7kLO4mXX4u KKw2MG50NN93mPKwd3J4 zGB5P6MfOTDddlvrrbys yGI7DOKrJNVflO40 kJQrTKjdIj6ej4U8l059 CAGaCCIbnA34Ue0xjPel WGBvvAOMjZ0mgkphl8mo cjogIzAwMDAwMDt0 LCb6VLOdlQknZjYiJEA0 RhW2EYK2vSRjnZ1gwNxg dnsiuP1bYce+NDQgWWVh zdQ1R5UrKlg9BJRp lYlkIW2daCArRUviXu4j nEnqkAuhZY1dHITjjtfn ZSIyvL5aLIJiwJTriNgx OQ4kHWSfpomit372 DkMkZAT7BHBagUAyP3Mm lT2lGdVmAZMzWZZyJ8Dc eXKsKAyvR703KNcgBqX9 KIPpeeRaI4NvPOKx aEvyTaR9z2J2Ia9AXV6s vHX3U2TkWzq0HYCfcGui OT2wtYBlFUorZa0tcGpy cYilYO4eMZOvvszv KWBbdH3cVBRtlSCyhDmx BH2pZSKwlnfwm325FmFd PRB5TRBibYLbJ0PgdE3b GtViBSOgCTEcZ4Mv fQStXMwfN391NIpmUgU4 JTLdqmUuP7RmXNEbpLei BgS4g6P1Lr5ZVAupEP2w yaHyKD4aqtL0R3Xx PjwvdHI+MG31QWOnEC11 oAAbiUWrb9dqkTs1DzGe GNNuVUX7vPmhARmpr9Ec HMRoA50bmQRuj7J9 IGNvbGxhcHNlOyBlbXB0 oJ2bXNtqpubst9sfmbzh Soqwt0qmaf31fM30T05c IHdpZHRoPSIzMCUi SMSbdYbpdc1hsY2qGe9+ YJYveOO8aJV3dG2uSsCl ZdM4AFxfV802BhXjlFKg Uzfir7lui7ossCc8 IjIwJSIgdmFsaWduPSJ0 n7PvNx98W21nYJtxCGPp ORPyTGMhGQIcsFgjzd4x wR2rFs1+UE3bz2jg cf50xT21dBA+PHRkIHN0 eZqpTQdfVGCrtV5dWMjt DcH2LBVnGyJbtG79yPUj YSufMw3zyHlelLdb BG3kOOVqrpiup784LxCr k8hpTGYzaQVbWZbhCLA0 N79dy7A6DYCbHCJxTOW8 zFP2mM1gtUofwobd bGVmdDsgdmVydGljYWwt GGfhD411NZHlgIcjFvRj hGGiD9ykknKJAB6cExin dGQ+MAMqYXP1uUqr ZXcwHHPfkM4hTPNmX0n5 GqQrKiU5LDysF7OastD3 UGBwfIHwAKWnyXQDdN7z udnyb7ivkmrnSyZt GLPsYXl2VAq8SIMzgBwe MaImBTB4VqZ1KND1dGRh mQ8oyYjmiscviF5mNxh+ RklOOjwvdGQ+PHRk FJA9aMwmEHauECShhZ4t OZKlV5o5QqObJyR2TXxb Q1EkbtX0YQWlsHWoWRIq oKCAyT8xpyvdx4ff stshIqSmNOKoAQr6NFf7 HUMejDltOgPrYCR5LfY3 VOR9sIBxvF7geUaghkpd xM0mVsl+TVJOOjwv dGQ+EKYcFRD3lTxrBSvo NGHdxS1iATSqI0b1PnSe CoZ2IMfqW3ZsgaG0PGZw pJXkMSAkiNIZdJ9i wzahz3ywsqplFoSmDHHv SXz1EZb0XUFpaZxhLpAp UYW7ZvU2EPR9mKGquM2w vBtnkvptcN2gQow+ FMX5DAE1OT70LC05G0Jh PjwvdGFibGU+PHRhYmxl IHdpZHRoPScxMDAlJyBz uPbwRL2sIa4vGYHl LWNv (more content not included)... Normal [facility] Referrals Officeon 2 Referrals Office [id number]# 1.00CD:127 [facility] Physician Orderon 03-23-2022 Physician Order [id number] 3#1.00CD:127 [facility] Physician Order [id number] 2#1.00CD:127 [facility] Consent for Treatmenton Consent for Treatment [id number] 0#1.00CD:127 [facility] Consultation Noteon 03-21-20 Consultation Note Patient: TABITHA ZARAGOZA Age: 46 years Sex: Female : 1975 [...] Problems Abnormal liver enzymes / SNOMED CT 426037067 / Confirmed Anxiety / SNOMED CT 46960276 / Confirmed Todd's esophagus / SNOMED CT 773907852 / Confirmed Body mass index 40.0-44.9, adult / SNOMED CT 5183633858 / Confirmed Chronic coughing / SNOMED CT 106809638 / Confirmed Chronic post-traumatic stress disorder / SNOMED CT 774768614 / Confirmed Classic migraine / SNOMED CT 1765617 / Confirmed Constipation / SNOMED CT 87909797 / Confirmed Depression / SNOMED CT 20255076 / Confirmed Dysphagia / SNOMED CT 11805489 / Confirmed Dyspnea on minimal exertion / SNOMED CT 494453526 / Confirmed Endometriosis / SNOMED CT 6311109288 / Confirmed Factor 5 Leiden mutation, heterozygous / SNOMED CT 080457398 / Confirmed Fibromyalgia / SNOMED CT 25204580 / Confirmed GERD - Gastro-esophageal reflux disease / SNOMED CT 3002691767 / Confirmed Glucose intolerance / SNOMED CT 19504326 / Confirmed Morbid obesity due to excess calories / SNOMED CT 970421543 / Confirmed Obesity / SNOMED CT L8029O61-5908-2T58-D 15E-D8S2806J6M2P / Possible Obstructive sleep apnea, adult / SNOMED CT 4470206794 / Confirmed Right cervical radiculopathy / SNOMED CT 9396151559 / Confirmed Shortness of breath at rest / SNOMED CT 428283934 / Confirmed Smoker / SNOMED CT 208663374 / Confirmed Added secondary to documentation in Social History. Histories Past Medical History: Active GERD - Gastro-esophageal reflux disease (0165379731) Todd's esophagus (541565630) Endometriosis (8860801383) Fibromyalgia (13328550) Resolved Acid reflux (726847242): Resolved. Hiatal hernia (182056033): Resolved. Gallstones (735517243): Resolved. Acute pancreatitis (838966188): Resolved. Family History: Primary malignant neoplasm of colon Uncle Anxiety Child Rheumatoid arthritis Mother Hypothyroidism Mother Diabetes mellitus type 2 Grandparent Alcoholism Brother Stroke Grandparent Depression Child DVT - Deep vein thrombosis Uncle DVT Aunt Procedure history: Hysterectomy (006600692) on 04/28/2017 at 41 Years. Comments: 04/28/2017 17:10 Leta Auguste RN Robotic-assisted hysterectomy, left salpingo-oophorectom y, right salpingectomy, lysis of adhesions laparoscopic tubal with cautery, fulguration of endometriosis, removal of IUD on 09/04/2013 at 38 Years. Laparoscopic cholecystectomy (15724837). Colonoscopy (001733255). EGD. Social History Social & Psyc (more content not included)... Normal [facility] Comment on above: Result Comment: Elec tronically Signed By: Bharti SHELDON, Phill Cruz.br\Date and Time Signed: 03/21/22 09:54 EST HIPAA Forms Officeon 022 HIPAA Forms Office [id number] 5#1.00CD:127 [facility] Legal Correspondence Officeo n 03-21-2022 Legal Correspondence Office [id number] 1#1.00CD:127 [facility] Legal Correspondence Office [id number]. [id number] 5#1.00CD:127 Normal [facility] Office/Clinic Note-Physician on 03-21-2022 Office/Clinic Note-Physician [id number] 4#1.00CD:127 [facility] Orders Officeon 03-21-2022 Orders Office [id number] 9#1.00CD:127 [facility] Patient Correspondenceon Patient Correspondence [id number]. [id number] 5#1.00CD:127 [facility] Patient Correspondence [id number]. [id number] 3#1.00CD:127 [facility] Patient Correspondence [id number]. [id number] 5#1.00CD:127 [facility] Patient Correspondence [id number]. [id number] 5#1.00CD:127 [facility] Patient Correspondence [id number] 7#1.00CD:127 Normal [facility] Patient History Officeon Patient History Office [id number] 6#1.00CD:127 Normal [facility] Insurance Correspondence Off iceon 03-15-2022 Insurance Correspondence Office [id number] 6#3.00CD:127 Normal [facility] Coding Summary.on 03-09-2022 Coding Summary. CD:[id number] Gh0bWw+PGhlYWQ+PE1FV FKxR48jaPLboM6UP2sUU Z3MZZMLDIHZQJ2MYP1cz QQ3BVegT7QnxuHj ZpiqaGRwAR06IIr9ZWW4 rSrkLGyvuC7xfJUjL1h3 MuSqEB33pM72MXswATUg RyS9CaKhwkxjlRJx E5htSrLwuKDqEbv+PHRh YmxlIHdpZHRoPScxMDAl BmVjqNmmHN1hFp0vISKo LWNvbGxhcHNlOiBj t5zyAGQmGOkuSS2ddJvf I6YkaIO4APEfr8l5Sm17 dHI+BIPsWKP0iBtsPZol f951TlYmd2bmTAO0 cEVhLDoxZSG5J17am7X3 WJCyDYXeBTR0yFV5pG4w bAaqiqmkM5HouTIhOuB0 IUD2wXFbiX9npRlk jijgbZ1aNwg+L75JMF0F YYZQYS0JSvk6Z6JsEjbn dHI+ZU95SJXqST62yLGy aHYrr9cjpQc5AaPt GBDdURT0pRoeAYtbz2Vm XSFdC31zpRZbd9J6TCPo kAzsjTMxBpFzcKQ4tU9e WFcixnmop6nffesj Ajkhd6fyib77dK30M09m QQdjAEVvGKG4CUJfDMEr nOufus7zsN8gLl0+IDxj t7vvp4njfDt7AvKp HBTnfcPhoPfjYLG4a6Nn Sr75R3PndRfqk6NcSat4 ap57rTVwx5E7mUV7HUmk RFVtxE0zWNwoRuR1 QSMyThXqdI94mNRjTMqt Vm8umMxmuTylJN3yWNMf eaovJJSrsN4eOOTglGVf rBovWT0aLJIkspuc e014AhOkKXO8AZGcgCCm Z1MsdS5uQjUtIJTjFNCn B0UxsLYeTOllB789YYqa RtO8BNZmtuQuC2En JNXdpPhcSjH5a9E5Mb3B h5FzbqnvLOW0FAdpMGSj FoD0UqPjKfM8Z1WdPnp9 FXKnoKzcIJ3lH0Gp TAMdsnpnpgyagCU2RFGl TKJenN68dOPjPKayHc0w j4O9f475LOFtSIWdlW24 Vt8bhVbeTHGanKBG gK5lcniho4xtialcExFc BKIoOHf8ERi5MGGdyZen SjUwRUD5UzF6PAY4cNPf qW9vzBsbluqeoL5x Oyc+B22fnF4qTPJ0ZFH6 bscdJUPtqaDaTQ49IS82 P0PiZufkfGRbfOS+PGRp uhYvwEztVY0cEgAs y1nym1PnWWrfF6HiLKXa WNagXmq5RFCaPWN9pBD7 aX8xWKAjGGwty3T7lCA0 G8OhrtZmtg7dz1ok SULaQSrtL64ypQEma6X4 EZKsbPH8ISCngJotZiEf eN33Hno+ZILtqQzrp7Ge Hyaht4gdn2iynIr8 IjMwJSIgdmFsaWduPSJ0 v2NsZz74M18fTXmvDYUu RFMiMGNeFACrfAxrxw0k nU2oBv3+PGNvbCB3 mXA8bN5fLVRmIqE5GRhj M339PlEkuVHeOldqb4tj k5ldcCd2ZhOuFMQfptPl kQwvJVC7t0PmTf61 C94uHAxcGKOpIWAeJCBc KZKctHncev9mfU8xDw7+ FS7jg4mkkj66jB70jCB+ FPGeAKF7oNkeHJfp MEUuyV8aLHstTzF5YBQg PeVhdI43qDFtSIcgVv3g uPxbcClcRG8kFQBphuas d792StIxt9vlVEHn iXKeRWibSSR1K97hz7L9 FPKhZBCtRAS7vTH7vW2t bGlnbjogbGVmdDsgdmVy bLwhZCowFJduG423 IHRvcDsnPlBhdGllbnQg VwAvBHx6U2EqGsz9TYMs xJznKZ5jyYSxINkxHn4k vEbezRjiAJ3zEISy vfqzb127YcMxh8bgQRJc cRRoXIgrMGL0J44oq3S0 UZRgRXPkUOC8lMX6uC5f bGlnbjogbGVmdDsg ekFsyZulUMxzMKhkR451 IHRvcDsnPkJpcnRoIERh uJD5RK97AL97eSHha0S2 iJR9M3EsLWMmmpjk iepgqHI8VIPzFJOclZ74 It4saTumHc3gVOCcIJT9 RJMamMLzL2JyoA7ySaPq QOOhOYHkI1IshATc NNgiG469TGtlQvQ4APWp jtHkE4WbWXBpyNjjWyI7 o1Z7Zt1XT2R2GP66GY10 uIToo5S3lKV5C6Fc GOHtkhtjouiqjUZ3GPGy SBAgbP55Dr4qsSfcLb5l PJEbIWS1HKFbyRUvW2Dr hM5dLuMaDICaWKTt C7MfpGWlYTfnD748ZArl VbK3QVQnivWqZ5PjJWGd dMdkUwN7y7F1Rt9ZSHp9 ZO45YP21tUFml6Z9 lOG3Z8WsFAJqsqojazpr pDL6VNJyCZQhsD78Fr1m tPvzMq0qFLHtTNN2ZTPy xLOaU5IloV0kTvKi MPVaVNAgD7JiwJZtGNtd J747FKkbXvP5UHJvjrUr L2ZcBOEndMmiGdV5s8E2 Kk5UXBDtIB84FVI6 fLD5ZV86LQ78H4DeOhss dGFibGU+PHRhYmxlIHdp ZHRoPScxMDAlJyBzdHls MH6iZk7iQXNgJVYm pQlyoICvAkGto1uxGQEq LSxhGO7unPtnD6CmwZA2 CRHeu9k5Xz53L08rG7Su dXA+YDOwjAN6wAG1 jQ0kReJkEfV8FHbdW841 BtBpuIQaIrvno3gbj5tg lWn2SmI7FJItplUvzBto JGJ9e0MuVq55H73m IHdpZHRoPSIxNSUiIHZh qBnedg4jyD1yVx4+PGNv tDK5hUF4zJ9pYxAeViG0 MYckG229LgAqyLRs Psntb6mlk0nmhLl2XcFz ESUvpjGncCvlJBJ1y3Aq Ba46I6TagDnwb9QeAgm3 mw35lKIhe3Y7aZV8 W1ZpHWCocgztxMHeqFgn IU8cCHIerojfELHefC8z GPDeJ8x8PfJtDdN1CWeg V5VrdgG2KXUkcFMt FIdlVFK3I90sh0Z8BMVf GSWkOKU7jQX8nW7loApi bjogbGVmdDsgdmVydGlj SNveUWtpG032YXPk gMdrQOSmwD0hTXDcdXDm aWaeJZ6fXGXehnvxKx4D I1UMMeyrNP0XGNtWBEw8 T6RzVtl4DKSqwJuj VP4ckKVqUPbtFm3efIcc aHjiNB4vSQXneewiNCWv lZ7bQHSzpGDjlXvdUS2r FHNyoltri555OvEu XDJ1IGJdyTJzS8WfgB4v GgQoZFDwROWkH2SdeAEm NCwsI843RNbzMjH4FRGw saXqU6DcSLVsvPlh ElV4s7Q1Nt2sTC4uRW3y UJe6AC84WK04vCGct9R6 cKA8X5AuSXHlioserymx mZU8MZDeAIAykI27 bMYkKIuiLx9cq8J2h101 SBTeKEKpoK44Me8hwKuj TJZozTQRpJ3jdctdo5cg cjogIzAwMDAwMDt0 MTb9GABwnZxhSjSsNEQ5 AcL1QYV4xZAdcK3diWak awprvA8hHti+NDQgWWVh fxA1E4AtFmp9NYZv yHqsZK4eyJKqSRtyOl7g lYpfsDxpTX1pRNVgcgtp SSOfyB0iTMJifJRemEbb NB0mLMEbvhnwq179 AdHeDQY0MUNnaNBhC4Hk fA9lTjHwMWRcFHMzA0Vp yBKbYOocP685NAwsEuD6 HIHluuTnO8LcQGYt pHanIuU9p7G3Zy2CKM0a xJB3T9RcOdr4FBKisNgg CN8qoFXpMHacRr3yjVna jExoUF9wBDRiqtdc JJVvuC4mDHIhdNCmqYxw VN6pWVOebxydz561OdSt QWW6PAJomLRiJ2LwoS6j AsMbJWKwCTQbW2Xs aUGoBBlvM733EHusYqT0 AXSxbgCcV7EuSOUqpXzv UnQ2w3S9Gk1AuLBkZXVb DF87EQ00KU71H2Dh PjwvdGFibGU+PHRhYmxl IHdpZHRoPScxMDAlJyBz xZjpQI2xZj5oJSUgCJSz kRvobZHfMoYei7rv ZPDrKNlfBX3ffOsqW0Cv cWW8VTJjv6w0Tu33Y02z C7BwzGS+CBAmwNN1pIU4 cC7aBdWbFiB8GChv B463SuIhjLPvPvlyu3yf o5ofzXa7LsYeGBLtuyLg iXgfTWZ9y5FxTz33W41c IHdpZHRoPSIyMCUi HHArpUelii0liT7uXp4+ WSWoaFV0lOT1pA3nUcPb GbF7OAodC927IzGbxJUg SkjtO86uJ7VjpCG+ JLDrNvs0HOSgoBjcSM4b nJWuMTfpGp6eSQY4UcSy UqZdKRdhJ6RzJHOuelce httioMM8FKFeOFJv tM40Jf6wtFmrWt8tXMFj YAA2CCCgoVCqB4VjuM1o XxXzGBUgGWYtU6SfdPEf VQorM430FYchSfF0 TPNksoQpQ9WkEVGksRxl OgX4p5E5Hc5QtXigoRLz MZ2gBcUcYGp2M7LhTmh4 NRKjuNgpEH2umSAq NUgsMg7dvCcarEnkZJ8u WIMzwcfwj066XgXcs7tg DZIksXVbMUppSXV1V83k p3S9YLXbZOOsESH4 mUQ6cB0wbYuvlueheZUy dDsgdmVydGljYWwtYWxp B562FCWsoYqoUmFNVcj6 W1HzGrq6TFUnaVbr IB4caLJiXKpvHv4omBqh uQluTX2lOYYjaklom955 FtVpa4xbFDVpbNKkKEyt FWM3I21ii3V9VIPx EAHxLGW2jWW1eB3ttKzo bjogbGVmdDsgdmVydGlj WXtwWDnzI716QWGwmIxh Cc1CQpr1D5LvPel8 VNAupBniJO5xbXFuZQcv Oz8jkUeshLjwAT7nBNVk isdbz610BaGhl2usFYZb pXKnXFanCIG8G98f f8J5RQHqVEXzIGG0fQX2 uH4elMzbwpolmZMpeEwa mzKhmGrhNVekBZabO015 IHRvcDsnPlBheWVy OjwvdGQ+RP33fe64Z8Vg PwjnPls6CYPpNWY1gPB7 yW1jXJLdZGbtx8A6vDW9 V0OtuwBmlo1zp3tg YXBz (more content not included)... Normal [facility] Consent for Treatmenton 02-12 Consent for Treatment [id number] #1.00CD:127 [facility] HIPAA Forms Officeon 022 HIPAA Forms Office [id number]. [id number] 6#1.00CD:127 [facility] Legal Correspondence Officeo n 03-01-2022 Legal Correspondence Office [id number]. [id number] 1#1.00CD:127 Normal [facility] Office/Clinic Note-Physician on 03-01-2022 Office/Clinic Note-Physician [id number]. [id number] 4#1.00CD:127 [facility] Orders Officeon 03-01-2022 Orders Office [id number]. [id number] 3#1.00CD:127 [facility] Outside Records Officeon Outside Records Office [id number]. [id number] 0#1.00CD:127 Normal [facility] Radiology Outside Office [employer] yon 02-25-2022 Radiology Outside Office Copy [id number]. [id number] 3#1.00CD:127 Normal [facility] Referrals Officeon Referrals Office [id number]. [id number] 0#1.00CD:127 Normal [facility] CNPNon 09-28-2021 CNPN Telephone ([facility]) TABITHA ZARAGOZA ([id number]) 1975 F Date Time Provider Department 09/28/21 MATHEW ASH [facility] During your visit today, we recorded [...] wait list for sooner appointment. PATRICIO Vasquez [facility] 10/04/2021 2:32 PM Signed Patient calling to [...] to any location. Can be reached at [phone]. Robbi Wilson RN 10/04/2021 2:59 PM Signed Pt placed on wait list. Robbi Wilson RN Allergies As of Date: 09/28/2021 (Not on File) Date Reviewed: Never Reviewed Reason for Visit: Appointment Rescheduled [1024] Problem List As Of Date: 09/28/2021 (None) Encounter Status:Closed by JORGE YANES on 01/27/22 Normal [facility] Vital Signs Date Time Vital Sign Value Performing Clinician Facility 04-16-2024 13:00-0500 Body mass index (BMI) [Ratio] 46.81 kg/m2 Alicia Wilson LD [facility] [place] [facility] 04-16-2024 13:00-0500 Body weight 131.54 kg Alicia Wilson LD Work Phone: [facility] 03-15-2024 11:00-0400 Body mass index (BMI) [Ratio] 45.84 kg/m2 Alicia Wilson LD Work Phone: [place] [facility]24 11:00-0400 Body weight 128.82 kg Alicia Wilson LD [facility] 02-13-2024 11:00-0400 Body height 167.6 cm Alicia Wilson LD [facility] 02-13-2024 11:00-0400 Body mass index (BMI) [Ratio] 46.65 kg/m2 Alic[facility] LD [facility] 02-13-2024 11:00-0400 Body weight 131.09 kg Alicia Wilson LD [facility] 06-12-2023 12:45-0500 Body height 166.37 cm Israel Naranjo Other [facility] Other 06-12-2023 12:45-0500 Body mass index (BMI) [Ratio] 46.44 kg/m2 Israel Naranjo Other [facility] Other 06-12-2023 12:45-0500 Body weight 128.55 kg Israel Naranjo Other [facility] Other 06-12-2023 12:45-0500 Diastolic blood pressure 79 mm[Hg] Israel Naranjo Other [facility] Other 06-12-2023 12:45-0500 Respiratory rate 18 /min Israel [employer] Other [facility] Other 06-12-2023 12:45-0500 SaO2% (BldA) [Mass fraction] 96 % Israel [employer] Other [facility] Other 06-12-2023 12:45-0500 Systolic blood pressure 130 mm[Hg] Israel [employer] Other [facility] Other 05-24-2023 10:30-0500 Body height 165.1 cm Tami Guthrie Other [facility] Other 03-29-2023 09:00-0500 Body height 165.1 cm Tami Guthrie Other [facility] Other 03-29-2023 09:00-0500 Body mass index (BMI) [Ratio] 44.06 kg/m2 Tami Guthrie Other [facility] Other 03-29-2023 09:00-0500 Body weight 120.11 kg Tami Guthrie Other [facility] Other 03-29-2023 09:00-0500 Diastolic blood pressure 70 mm[Hg] Tami Guthrie Other [facility] Other 03-29-2023 09:00-0500 SaO2% (BldA) [Mass fraction] 96 % Tami Ajacher Other [facility] Other 03-29-2023 09:00-0500 Systolic blood pressure 128 mm[Hg] Tami Ajacher Other [facility] Other 02-10-2023 09:00-0400 Body height 165.1 cm Tami Yimir Other [facility] Other 02-10-2023 09:00-0400 Body mass index (BMI) [Ratio] 42.76 kg/m2 Tami Ajacher Other [facility] Other 02-10-2023 09:00-0400 Body weight 116.58 kg Tami Ajacher Other [facility] Other 02-10-2023 09:00-0400 Diastolic blood pressure 74 mm[Hg] Tami Ajacher Other [facility] Other 02-10-2023 09:00-0400 SaO2% (BldA) [Mass fraction] 97 % Tamimelani Rochaacher Other [facility] Other 02-10-2023 09:00-0400 Systolic blood pressure 118 mm[Hg] Tami Ajacher Other [facility] Other 12-27-2022 09:05-0400 Diastolic blood pressure 89 mm[Hg] MD Dileep Laboy Work Phone: [facility] 12-27-2022 09:05-0400 Heart rate 96 /min MD Dileep Laboy Work Phone: [facility] 12-27-2022 09:05-0400 Respiratory rate 16 /min MD Dileep Laboy Work Phone: [facility] 12-27-2022 09:05-0400 SaO2% (BldA) [Mass fraction] 99 % MD Dileep Laboy Work Phone: [facility] 12-27-2022 09:05-0400 Systolic blood pressure 146 mm[Hg] MD Dileep Laboy Work Phone: [facility] 12-27-2022 07:44-0400 Body height 162.56 cm MD Dileep Laboy Work Phone: [facility] 12-27-2022 07:44-0400 Body weight 113.39 kg MD Dileep Laboy Work Phone: [facility] 03-21-2022 09:11-0500 Diastolic blood pressure 84 mm[Hg] Phill Bharti [facility] 03-21-2022 09:11-0500 Heart rate 102 /min Phill Bharti [facility] 03-21-2022 09:11-0500 Mean blood pressure 96 mm[Hg] Phill Bharti [facility] 03-21-2022 09:11-0500 Respiratory rate 16 /min Phill Bharti [facility] 03-21-2022 09:11-0500 Systolic blood pressure 121 mm[Hg] Phill Bharti [facility] 03-01-2022 11:01-0400 Diastolic blood pressure 78 mm[Hg] Candelario Burns [facility] 10-18-2022 11:01-0400 Heart rate 92 /min Candelario Burns [facility] 03-01-2022 11:01-0400 Mean blood pressure 94 mm[Hg] Candelario Burns [facility] 03-01-2022 11:01-0400 Respiratory rate 12 /min Candelario Burns [facility] 03-01-2022 11:01-0400 Systolic blood pressure 127 mm[Hg] Candelario Burns [facility] Encounters Encounter Date Encounter Type Care Provider Facility Start: 05-01-2024 End: 05-01-2024 ambulatory [place] Marilia [facility] Start: 04-16-2024 End: 04-16-2024 Telemedicine consultation with patient Alicia SARAH Work Phone: [facility] Comment on above: Morbid obesity (CMS- HCC) (Primary Dx); Pre-bariatric surgery nutrition evaluation Start: 04-16-2024 End: 04-16-2024 ambulatory ALICIA WILSON [facility] Start: 04-09-2024 ambulatory [place] Marilia ARDON [facility] Start: 03-15-2024 End: 03-15-2024 Telemedicine consultation with patient Alicia SARAH Work Phone: [facility] Comment on above: Morbid obesity (CMS- HCC) (Primary Dx); Pre-bariatric surgery nutrition evaluation Start: 03-15-2024 End: 03-15-2024 ambulatory ALICIA WILSON [facility] Start: 02-13-2024 End: 02-13-2024 Telemedicine consultation with patient Alicia Wilson LD Work Phone: [facility] Comment on above: Morbid obesity (CMS- HCC) (Primary Dx); Pre-bariatric surgery nutrition evaluation Start: 02-13-2024 End: 02-13-2024 ambulatory ALICIA WILSON [facility] Start: 02-02-2024 End: 02-02-2024 ambulatory [facility] Start: 01-31-2024 End: 01-31-2024 ambulatory [facility] Start: 01-18-2024 End: 01-18-2024 ambulatory GERARD SPARROW Not Available Start: 01-10-2024 End: 01-10-2024 ambulatory SAE FARRIS Not Available Start: 12-26-2023 End: 12-26-2023 ambulatory [facility] Start: 12-25-2023 End: 12-25-2023 ambulatory CRISTIANO KRAUSETON Not Available Start: 12-19-2023 End: 12-19-2023 ambulatory CRISTIANO Yonis [place] Not Available Start: 12-13-2023 End: 12-13-2023 ambulatory .SAE Not Available Start: 12-11-2023 End: 12-11-2023 ambulatory CRISTIANO KRAUSETON Not Available Start: 11-30-2023 End: 11-30-2023 ambulatory CRISTIANO Somers [place] Not Available Start: 11-21-2023 End: 11-22-2023 ambulatory CRISTIANO Yonis [place] Not Available Start: 11-15-2023 End: 11-15-2023 ambulatory .SAE STEPZHANNA Not Available Start: 11-10-2023 End: 11-10-2023 ambulatory OBEY Ruth WELLER Not Available Start: 09-14-2023 End: 09-14-2023 ambulatory INDIO AUGUSTINE Not Available Start: 08-22-2023 Non-patient / Non-visit [facility] Work Phone: Start: 06-26-2023 End: 06-26-2023 ambulatory Tami Guthrie Other [employer] Other Start: 06-26-2023 Telephone encounter Tami Ramires [facility] Start: 06-12-2023 End: 06-12-2023 ambulatory Tami Guthrie [facility] Other Start: 06-12-2023 Nutrition therapy Israel Naranjo [facility] Start: 06-12-2023 Telephone encounter Tami Phelpscyril her [facility] Start: 05-24-2023 End: 05-24-2023 ambulatory Tami Phelpsfantasma Other [facility] Other Start: 05-24-2023 Office outpatient visit 10 minutes Tami Jerri [facility] Start: 05-16-2023 End: 05-16-2023 ambulatory Tami Jerri Other [facility] Other Start: 05-16-2023 Telephone encounter Tami Phelpscyril her [facility] Start: 05-01-2023 End: 05-01-2023 ambulatory Tami Jerri Other [facility] Other Start: 05-01-2023 Office outpatient visit 15 minutes Tami Jerri [facility] Start: 04-11-2023 End: 04-11-2023 ambulatory Tami Jerri Other [facility] Other Start: 04-11-2023 Telephone encounter Tami Phelpscyril her [facility] Start: 03-30-2023 End: 03-30-2023 ambulatory Leticia Hansen Other [facility] Other Start: 03-30-2023 Telephone encounter Leticia Hansen [facility] [employer] Start: 03-29-2023 End: 03-29-2023 ambulatory Tami Jerri Other [facility] Other Start: 03-29-2023 Office outpatient visit 25 minutes Tami Jerri [facility] Start: 03-09-2023 End: 03-09-2023 ambulatory Tami Jerri Other [facility] Other Start: 03-09-2023 Telephone encounter Tami Rochaclay her [facility] Start: 03-06-2023 End: 03-06-2023 ambulatory Tami Guthrie Other [facility] Other Start: 03-06-2023 Telephone encounter Tami Ramires her [facility] [employer] Start: 02-10-2023 End: 02-10-2023 ambulatory Tami Guthrie Other [facility] Other Start: 02-10-2023 Office outpatient visit 25 minutes Tami Jerri [facility] Start: 12-27-2022 End: 12-27-2022 Admission to same day surgery center MD Dileep Laboy Work Phone: [facility] Work Phone: Start: 12-27-2022 End: 12-27-2022 ambulatory MD Dileep Laboy Work Phone: [facility] Work Phone: Start: 12-23-2022 End: 12-23-2022 ambulatory Imad Asaad Other [facility] Other Start: 12-23-2022 Telephone encounter Imad Asaad [facility] Start: 08-19-2022 End: 08-19-[address] DILEEP LABOY . Facility: Start: 03-21-2022 End: 03-22-2022 ambulatory Phill Hay Facility:[facility] Start: 03-21-2022 End: 03-21-2022 Pain Management Phill Hay [facility] Start: 03-01-2022 End: 03-02-2022 ambulatory Candelario Burns Facility:[facility] Start: 03-01-2022 End: 03-01-2022 Patient encounter procedure Candelario Burns [facility] Start: 01-19-2022 End: 01-19-[address] DILEEP [...] Treatment Date Care Activity Detail Author Start: 08-19-2032 DTaP,Tdap and Td Vaccines (3 - Td or Tdap) DTaP,Tdap and Td Vaccines (3 - Td or Tdap) [facility] Start: 04-16-2025 Adult BMI Screening Adult BMI Screen ing [facility] Start: 03-15-2025 Adult BMI Screening Adult BMI Screen ing [facility] Start: 02-12-2025 Adult BMI Follow Up Plan Adult BMI Follow Up Plan [facility] Start: 02-12-2025 Adult BMI Screening Adult BMI Screen ing [facility] Start: 12-25-2024 Tobacco Screening Tobacco Screening [facility] Start: 05-17-2024 End: 05-17-2024 Telemedicine consultation with patient 05/17/2024 1:00 PM EST Telemedicine [facility] [address] [place] [address] Alicia Wilson, LD [address] [place] [address] [facility] Start: 05-01-2024 End: 05-01-2024 Patient encounter procedure 05/01/2024 8:30 AM EST Appointment [facility] [address] [place] [phone] [facility] Start: 04-23-2024 End: 04-23-2024 Patient encounter procedure 04/23/2024 9:00 AM EST Appointment [facility] [address] [place] [phone] Morbid obesity ([facility]-HCC); Other fatigue [facility] Comment on above: Morbid obesity (CMS- HCC); Other fatigue Start: 04-15-2024 End: 04-15-2024 Telemedicine consultation with patient 04/15/2024 2:00 PM EST Telemedicine [facility] [address] [place] [phone] Alicia Wilson, TYREL [address] [facility] [place] [address] [facility] Start: 03-15-2024 End: 03-15-2024 Telemedicine consultation with patient 03/15/2024 11:30 AM EDT Telemedicine [facility] [address] [facility] [facility] [id number] Alicia Wilson, TYREL [address] [facility] [facility] [place] [address] [facility] Start: 01-14-2024 COVID-19 Vaccine () COVID-19 Vaccine () [facility] Start: 01-14-2024 COVID-19 Vaccine ( season) COVID-19 Vaccine ( season) [facility] Start: 01-14-2024 Influenza vaccination Influenza Vacc ine [facility] Start: 12-27-2022 [facility] Start: 01-13-2022 Influenza vaccination INFLUENZA (#1) [facility] Start: 2017 Mammography MAMMOGRAM [facility] Start: 08-22-2007 HPV TESTING HPV TESTING [facility] Start: 1998 PAP TESTING PAP TESTING [facility] Start: 1998 Screening for malign ant neoplasm of cervix Pap Smear [facility] Start: 1996 Urine microalbumin profile DTAP,TDAP,TD (1 - Tdap) [facility] Start: 08-22-1995 HEPATITIS C SCREENING HEPATITIS C SC REENING [facility] Start: 08-22-1995 HIV SCREENING HIV SCREENING [facility] Start: 1989 Adult depression screening assessment DEPRESSION SCREENING [facility] Start: 02-20-1978 COVID-19 VACCINE (#1) COVID-19 VACCI NE (#1) [facility] Start: 1977 HEPATITIS B (1 of 3 - 3-dose series) HEPATITIS B (1 of 3 - 3-dose series) [facility] Start: 1977 Tobacco Counseling Tobacco Counselin karie [facility] Immunizations Immunization Date Immunization Notes Care Provider Mayur acosta 04-09-2023 influenza virus vaccine, unspecified formulation Alicia SARAH Work Phone: [facility] 01-09-2014 influenza, injectable, quadrivalent, contains preservative [facility] 01-09-2014 influenza, injectable, quadrivalent, preservative free Imad Asaad Other [facility] Other Payers Date Payer Category Payer Medicaid [place] [employer] [employer] [id number] 2023-Present [phone] [place] [phone] [id number] 2023 [facility] [id number] 2023 Medicaid [id number] 2022 Self-pay [id number] 2021 Private Health Insurance [employer] [id number] 2021-2021 [address] [place] [address] Open Access [id number]. [id number] 1977 Unknown [id number] 2.16840.1.976808.3.579.2. 727 1977 Unknown [id number] 2.16840.1.180397.3.579.2. 727 1977 Unknown [id number] 2.16840.1.007117.3.579.2. 593 1977 Unknown [id number] 2.16.840.1.245256.3.579.2. 593 1977 Unknown [id number] 2.16.840.1.137810.3.579.2. 1259 1977 Unknown [id number] 2.16.840.1.198849.3.579.2. 1258 1977 Unknown [id number] 2.840.1.669690.3.579.2. 1258 1977 Unknown [id number] 2.840.1.505008.3.579.2. 1258 1977 Unknown [id number] 2.840.1.918808.3.579.2. 1258 1977 Unknown [id number] 2.840.1.811770.3.579.2. 1258 1977 Unknown [id number] 2.0.1.314141.3.579.2. 1258 1977 Unknown [id number] 2.0.1.721563.3.579.2. 1258 1977 Unknown [id number] 2.0.1.924748.3.579.2. 1258 1977 Unknown [id number] .0.1.877059.3.579.2. 1258 1977 Unknown [id number] .0.1.978507.3.579.2. 1258 1977 Unknown [id number] .0.1.656646.3.579.2. 1258 1977 Unknown [id number] 2.0.1.394555.3.579.2. 1258 1977 Unknown [id number] 06.30.830.1.373610.3.579.2. 1285 1977 Unknown [id number] .0.1.313846.3.579.2. 1285 1977 Unknown [id number] .0.1.458948.3.579.2. 1285 1977 Unknown [id number] .840.1.324646.3.579.2. 1285 1977 Unknown [id number] 2.840.1.254434.3.579.2. 1286 1977 Unknown [id number] 2.16.840.1.493700.3.579.2. 1286 1977 Unknown [id number] 2.16.840.1.602964.3.579.2. 1286 1977 Unknown [id number] 2.16.840.1.209646.3.579.2. 1286 1977 Unknown [id number] 2.16.840.1.649651.3.579.2. 1286 1959 Self-pay [id number] 1959 Unknown [id number] Private Health Insurance [facility] [id number] Unknown [id number] 2.16.840.1.588108.3.579.2. 531 Unknown [id number] 2..840.1.125517.3.579.2. 531 Social History Date Type Detail Facility [facility] consumption [facility] Start: 1975 Sex Assigned At Not on file [facility] Start: 10-10-2021 End: 10-20-2021 Exposure to SARS-CoV-2 (event) Not sure [facility] Start: 11-29-2019 Tobacco smoking status Light t obacco smoker (finding) [facility] Start: 06-25-2020 End: 12-26-2023 Sex Assigned At Female [facility] Start: 12-27-2022 End: 07-12-2023 Tobacco smoking status NHIS Smoker (finding) [facility] Start: 1975 Sex Assigned At Female [facility] Start: 12-26-2023 Tobacco [facility] History of tobacco use Cigarette Smoker P [facility] Start: 12-26-2023 Tobacco use and exposure Smokeless tobacco non-user [facility] Start: 12-26-2023 Alcoholic beverage intake Current non-drinker of alcohol (finding) [facility] Start: 06-25-2020 End: 12-26-2023 History of Social function [facility] Childcare Unknown [facility] Start: 12-18-2014 Sex Female (finding) [facility] Goals Date Patient Goal Desired Activity /State Functional Status Date Assessment Result Facility 03-21-2022 Functional Status N/A [facility] 03-01-2022 Functional Status N/A [facility] Clinical Notes 04-14-2016 to 04-16-2024 Alicia Wilson, - 04/16/2024 1:00 PM ESTPatient InstructionsTieraraul Steve, - 03/15/2024 11:30 AM EDTPatient InstructionsEmraul Steve, - 02/13/2024 11:00 AM EDTPatient Instructions Note Date & Type Note Facility 04-16-2024 History of Presen t illness Narrative Bariatric Medical Nutrition Therapy Nutritional Assessment/Education Session #: 3 Tabitha Zaragoza is a 48 y.o. female who participated in a video visit for follow up medical nutritional therapy for weight loss surgery. Video Visit via Real-time Synchronous Audiovisual Provider Location: [facility] [address] [place] [phone] Patient Location: Patient's home Patient Location Associate Store Manager: None Video Visit Consent Statement: I discussed risks, benefits, and alternatives of a real-time synchronous audiovisual consultation with the patient (and any accompanying persons) including the risks that the patient's personal health details and medical records will be discussed over real-time, synchronous, interactive video/audio/telecommunication technology, the visit will not be recorded without the express consent of both the provider and the patient, and that there are some limitations compared to [id number] evaluations. We elected to proceed. Weight Change 04/16/2024 Weight: 131.5 kg (290 lb) Weight Change: up 6 pounds in one month Tabitha quit smoking this month which has made it hard to stick with her eating schedule. She has noticed she is snacking more throughout the day. Discussed having intentional snacks every 3 hours that includes protein. She is not getting regular sleep due to taking care of her daughter which has also made eating small frequent meals difficult for her. Diet Recall: Breakfast Snack Lunch Snack Dinner Snack [employer] Beverage Intake: Water and decaf coffee (black) Physical Activity: Walking the steps and activities of daily living Bariatric Medical Nutrition Therapy Goal Summary Eat 4-5 meals per day. No night time snacking.: 50% of the time Avoid all sugars, sweets, desserts, and sugared beverages.: 75% of the time Eat fewer fried foods, limit fats added to foods, and avoid high-fat fast foods.: 100% of the time Eat protein-rich food at each meal.: 75% of the time Take a multi-vitamin/mineral supplement daily.: 100% of the time Sip liquids. Drink 64 ounces/day.: 75% of the time Eliminate drinks with sugar, carbonation, caffeine and alcohol.: 100% of the time Eat meals very slowly (appr 30 mins per meal). Stop eating when full.: 75% of the time Take small bites. Chew foods well.: 75% of the time Avoid emotional eating/mindless eating.: 75% of the time Exercise 3 - 5 times per week by: 25% of the time Nutrition Diagnosis: Obesity as evidenced by BMI. Body mass index is 46.81 kg/m . Nutrition Prescription for Bariatric Surgery: 1) Promote optimal healing postoperatively. Ensure adequate protein intake with protein supplements. 2) Prevent onset of early and late dumping syndrome. Avoid all simple sugars. Consume liquids between meals. 3) Prevent development of nutrient deficiencies. 1) 2 multivitamins with iron daily or 1 vitamin daily. 2) 5658-5431 mg calcium in divided doses (2x/day) for sleeve and gastric bypass, 6508-1571 mg in divided doses (3x/day) for SADS and distalization of bypass. Calcium Citrate can be taken with or without meals, however Calcium Carbonate should be consumed with meals. Take at least 2 hours before or after taking iron, since calcium will decrease iron absorption. 3) 350-1000 mcg oral vitamin B12 daily or 1000 mcg monthly injectable. Nutrition Intervention: Comprehensive Nutrition Education 1) Discussed post op gastric reduction diet guidelines. 2) Discussed post op gastric reduction diet progression. 3) Discussed post op gastric reduction diet vitamin/mineral regimen. 4) Stressed the importance of adequate hydration (64 ounces/day). 5) Stressed the importance of adequate protein 65-75 grams/day. 6) Discussed ways to prevent signs and symptoms of dumping syndrome. 7) Discussed pre-operative liquid diet. 8) Encouraged bariatric support group meetings for additional support. Additional information: Discussed vitamin/mineral regimen need after weight loss surgery to prevent nutrient deficiencies. This includes: 1) 2 multivitamins with iron daily or 1-2 bariatric vitamins (depending on brand) 2) 9105-1668 mg calcium in divided doses (2x/day) for sleeve and gastric bypass, 6708-2541 mg in divided doses (3x/day) for SADS and distalization of bypass. Calcium Citrate can be taken with or without meals, however Calcium Carbonate should be consumed with meals. Take at least 2 hours before or after taking iron, since calcium will decrease iron absorption. 3) 350-1000 mcg oral vitamin B12 daily or 1000 mcg monthly injectable. Pt agrees to comply with this vitamin/mineral regimen after surgery. Patient is to continue to work towards making previous diet goals part of daily habits prior to surgery. Written information on all discussed has been provided within the [facility] Bariatric Guide. My contact name and number provided if questions or concerns arise. Nutrition Monitoring: To follow up after weight loss surgery to reinforce diet. Start time: 1304 End time: 1355 documented in this encounter [facility] 04-16-2024 Instructions TYREL Siddiqui - 04/16/2024 1:00 PM EST If you re looking for general health and wellness resources, please visit [email or web address]. Read the [facility] Bariatric Guide. documented in this encounter [facility] 03-15-2024 History of Presen t illness Narrative Bariatric Medical Nutrition Therapy Nutritional Assessment/Education Session #: 2 Video Visit via Real-time Synchronous Audiovisual Provider Location: [facility] [address] [place] [phone] Patient Location: Patient's home Video Visit Consent Statement: I discussed risks, benefits, and alternatives of a real-time synchronous audiovisual consultation with the patient (and any accompanying persons) including the risks that the patient's personal health details and medical records will be discussed over real-time, synchronous, interactive video/audio/telecommunication technology, the visit will not be recorded without the express consent of both the provider and the patient, and that there are some limitations compared to [id number] evaluations. The patient consented to the presence of additional virtual and/or in-person participants. We elected to proceed. Tabitha Zaragoza is a 48 y.o. female who presents for follow up medical nutritional therapy for weight loss surgery. Weight Change 03/15/2024 Weight: 128.8 kg (284 lb) Weight Change: down 5 pounds in one month Tabitha has been up and moving more in the past month. She is working on eating 4 meals a day, usually eats 3. She is focusing on protein and limiting starch intake. Discussed ways to use protein shakes for meals. Diet Recall: Breakfast Snack Lunch Snack Dinner Snack Two boiled eggs and banana nut muffin Salad (matias, spinach, cheese, ham cubs, Itallian dressing, and fried onions) Boiled eggs and grapes 90 calorie fudgiscle Beverage Intake: Water (at least 64 oz) and half cup of coffee Physical Activity: Walking up and down the steps more and going outside with dogs Bariatric Medical Nutrition Therapy Goal Summary Eat 4-5 meals per day. No night time snacking.: 50% of the time Avoid all sugars, sweets, desserts, and sugared beverages.: 75% of the time Eat fewer fried foods, limit fats added to foods, and avoid high-fat fast foods.: 100% of the time Eat protein-rich food at each meal.: 100% of the time Take a multi-vitamin/mineral supplement daily.: 100% of the time Sip liquids. Drink 64 ounces/day.: 100% of the time Eliminate drinks with sugar, carbonation, caffeine and alcohol.: 75% of the time Eat meals very slowly (appr 30 mins per meal). Stop eating when full.: 100% of the time Take small bites. Chew foods well.: 100% of the time Avoid emotional eating/mindless eating.: 100% of the time Exercise 3 - 5 times per week by: 25% of the time Nutrition Diagnosis: Obesity as evidenced by BMI. Body mass index is 45.84 kg/m . Nutrition Intervention: Nutrition education Discussed diet and behavioral changes needed to be successful with weight loss surgery. Pt is to continue to work towards making medical nutrition therapy goals part of daily habits prior to surgery. 1) Eat 4-5 meals per day. No night time snacking. 2) Avoid all sugars, sweets and desserts. Read food labels and avoid foods/beverages with > 5 grams sugar per serving. 3) Eat fewer fried foods, limit fats added to foods, and avoid high fat fast foods. Read food labels for foods < 3 grams fat per serving. 4) Eat protein-rich food at each meal followed by vegetables, then fruit, while limiting starches. 5) Take a multivitamin/mineral supplement daily. 6) Sip 64 ounces of liquids between meals. 7) Eliminate drinks with sugar, alcohol, caffeine and carbonation. 8) Eat meals very slowly, approximately 30 minutes per meal. Stop eating when feel full. 9) Take small bites. Chew foods well. 10) Avoid emotional eating / mindless eating. 11) Exercise 3 times per week. Additional information provided: Discussed the importance of adequate protein intake after weight loss surgery to promote healing and prevent protein-malnutrition. Discussed protein shake guidelines. Also discussed vitamin/mineral regimen need after weight loss surgery to prevent nutrient deficiencies. This includes: 1) 2 multivitamins with iron daily or 1-2 bariatric vitamins (depending on brand). 2) 8206-0686 mg calcium in divided doses (2x/day) for sleeve and gastric bypass, [address]2-[address]492 mg in divided doses (3x/day) for SADS and distalization of bypass. Calcium Citrate can be taken with or without meals, however Calcium Carbonate should be consumed with meals. Take at least 2 hours before or after taking iron, since calcium will decrease iron absorption. 3) 350-1000 mcg oral vitamin B12 daily or 1000 mcg monthly injectable. Pt agrees to comply with this vitamin/mineral regimen after surgery. Written information on all discussed has been provided within the [facility] Bariatric Guide. My contact name and number provided if questions or concerns arise. Nutrition Monitoring: To follow up in 1 month to show progress towards goals. Start time: 1131 End time: 1206 documented in this encounter [facility] 03-15-2024 Instructions TYREL Siddiqui - 03/15/2024 11:30 AM EDT If you re looking for general health and wellness resources, please visit [email or web address]. Read the [facility] Bariatric Guide. documented in this encounter [facility] 02-13-2024 History of Presen t illness Narrative Bariatric Medical Nutrition Therapy Nutritional Assessment/Education Initial Nutrition Education Video Visit via Real-time Synchronous Audiovisual Provider Location: [facility] [address] [place] [phone] Patient Location: Patient's home Video Visit Consent Statement: I discussed risks, benefits, and alternatives of a real-time synchronous audiovisual consultation with the patient (and any accompanying persons) including the risks that the patient's personal health details and medical records will be discussed over real-time, synchronous, interactive video/audio/telecommunication technology, the visit will not be recorded without the express consent of both the provider and the patient, and that there are some limitations compared to [id number] evaluations. The patient consented to the presence of additional virtual and/or in-person participants. We elected to proceed. Tabitha Zaragoza is a 48 y.o. female who presents for medical nutritional therapy evaluation and education for weight loss surgery. This patient is interested in the sleeve gastrectomy. Ht 167.6 cm (5' 6 ) Wt 131.1 kg (289 lb) BMI 46.65 kg/m Relevant medical history: Acid reflux and sleep apnea (c-pap) Barrier learning assessment: Yes Weight history: Highest adult weight was 294 pounds. Lowest adult weight was 135 pounds. Tabitha Zaragoza wants to weigh 150 pounds. There is a maternal and paternal family history for obesity. Previous diet and medication treatments for obesity include: Weight watchers, keto, Semiglutides with high protein diet, Omni (60 pounds in 9 months), and mediterranean diet. Despite these attempts at dieting and exercise, the patient has failed to maintain any sustained weight loss. 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) Work hours: -- Smoking, chewing tobacco/dipping or smokeless tobacco products: Quitting smoking currently Family/friend support for weight loss surgery: and kids Primary cook in the house: Self Primary person who does the grocery shopping: Self Nutritional Assessment: Pt s view as his/her biggest problem/concern with eating: Not eating enough protein, eating convenience foods, and snacking Food weakness or trigger foods: Chocolate and pizza Is satiety recognized?: Yes (after only a little bit) Personal eating pace: Slow Emotional eating: Bored eating Location of most meals: Meals at the table and snacks on the couch or room Diet Recall: Awake 5:00/7:00 am Breakfast Snack Lunch 1:00 pm Snack Dinner Snack Skip Or Chocolate Or Fruit Sushi Or Chocolate Or Burritos Or Mac n cheese Or Hot dogs Steak, broccoli, and potatoes Or Pizza (twice a month) Or Skip Or Spaghetti Or Chicken pot pie Or Chicken noodle soup Or Pork chops Or Roast Beverage Intake: 1/2 a cup coffee with one tablespoon of sugar, water, occasional Coke zero with pizza, and lemonade Alcohol Intake: None Weekend Meal Pattern: Weekends have more time to cook Dining Out Frequency: A few times a month Vitamin/Mineral/Herbal Supplements: Flintstones completes Food Allergies/Intolerances: [place], wheat, and nuts (headache and congestion) Buddhism/Cultural Food Requests: None Activity Level: Formal Exercise: None General Activity Status: Sitting more with depression Nutrition Diagnosis: Obesity as evidenced by BMI. Body mass index is 46.65 kg/m . Nutrition Intervention: Initial nutrition education Discussed diet and behavioral changes needed to be successful with weight loss surgery. Patient agrees to the following goals: 1) Eat 4-5 meals per day. No night time snacking. 2) Avoid all sugars, sweets and desserts. Read food labels and avoid foods/beverages with > 5 grams sugar per serving. 3) Eat fewer fried foods, limit fats added to foods, and avoid high fat fast foods. Read food labels for foods < 3 grams fat per serving. 4) Eat protein-rich food at each meal followed by vegetables, then fruit, while limiting starches. 5) Take a multivitamin/mineral supplement daily. 6) Sip 64 ounces of liquids between meals. 7) Eliminate drinks with sugar, alcohol, caffeine and carbonation. 8) Eat meals very slowly, approximately 30 minutes per meal. Stop eating when feel full. 9) Take small bites. Chew foods well. 10) Avoid emotional eating / mindless eating. 11) Exercise 3 times per week. Written information on all discussed has been provided within the [facility] Bariatric Guide. My contact name and number provided if questions or concerns arise. Nutrition Monitoring: To follow up in 1 month to show progress towards goals. Start time: 1101 End time: 1200 [facility] Instructions TYREL Siddiqui - 02/13/2024 11:00 AM EDT If you re looking for general health and wellness resources, please visit [email or web address]. Read the [facility]. 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 Please excuse errors in big data admin. May, Dietary surveillance and counseling (ICD-10 - Z71.3) Discussed in detail high-protein, high-fiber, low-fat nutrition plan favoring calorie deficit and lean tissue mass preservation. -Patient experiences bloating with several foods. Recommend RD appointments -She is meeting with gastroenterology at [facility] May, Exercise counseling (ICD-10 - Z71.89) [...] with the patient, and documenting clinical information. [facility] Other 01-11-2024 Reason for visit NarrativeWeight loss clinic referral- [phone] [employer] Other 01-10-2024 Evaluation note* Encounter Date Diagnosis [...] in visit was myself, Tami Guthrie DNP, HERO, SAFETY ASSISTANT (provider) . Time spent with patient was approximately 6 minutes. [facility] Other 01-02-2024 Evaluation note* Encounter Date Diagnosis Assessment Notes Treatment Notes Treatment Clinical Notes May, Bloating (ICD-10 - R14.0) May, Alternating constipation and diarrhea (ICD-10 - R19.8) May, GERD (gastroesophageal reflux disease) (ICD-10 - K21.9) May, Hiatal hernia (ICD-10 - K44.9) [facility] Other 12-18-2023 Evaluation note* Encounter Date Diagnosis Assessment Notes Treatment Notes Treatment Clinical Notes Apr, Bronchitis (ICD-10 - J40) Discussed diagnosis with patient. Patient to start Zithromax. Patient to take Zithromax daily with food as prescribed. Finish entire course of antibiotic. Proair inhaler sent today for patient to use PRN cough/wheezing/short ness of breath. Increase fluids and rest. [id number]-drt-[id number] antipyretics as needed. Warning signs and symptoms [...] in visit was myself, Tami Guthrie DNP, HERO, SAFETY ASSISTANT (provider) . Time spent with patient was approximately 10 minutes. [facility] Other 11-16-2023 Evaluation note* Encounter Date Diagnosis Assessment Notes Treatment Notes Treatment Clinical Notes Mar, Cigarette nicotine dependence without complication (ICD-10 - F17.210) Mar, Chronic cough (ICD-10 - R05.3) Mar, Mild intermittent asthma without complication (ICD-10 - J45.20) [facility] Other 11-15-2023 Evaluation note* Encounter Date Diagnosis [...] and willingness to quit at each appointment. [facility] Other 10-26-2023 Evaluation note* Encounter Date Diagnosis Assessment Notes Treatment Notes Treatment Clinical Notes Feb, Other OARRS checked l ast filled 04/2022 [facility] Other 09-29-2023 Evaluation note* Encounter Date Diagnosis [...] for further options for treatment of fibromyalgia Skin Scan Other [facility] Evaluation + Plan noteExtracted from: Title:NPV [...] complete. Patient agrees with plan of care. [place] automated Rx report was reviewed and is consistent with medications listed as prescribed. [facility]10-22-2022 NoteHOSPITAL REGULATIONS: All Positive and Important Negative [...] smoking. She can follow up with us Anjali Hernandez Dictated: 03/01/2022 [id number] Transcribed: 03/01/2022 cc:Dileep Laboy M.D.[facility] HospitalComment on above:Result Comment: Electronically Signed By: Grant SHELDON, Candelario Armijo\.br\Date and Time Signed: 03/05/22 21:30 [id number] NotePROCEDURE: [employer] Signa HDXT 1.5 Sagittal T1, T2, STIR [...] and signed by Leonel Fuentes on 02/08/2022 1050[facility]2022 NotePROCEDURE: CT CERVICAL SPINE W/O DYE COMPARISON: [...] Electronically authenticated by: MAY WINTERS Date: 2022-01-19 08:41[facility]05-23-2022 Miscellaneous Notes* Telephone Encounter - Robbi [...] to any location. Can be reached at [phone]. * Telephone Encounter - Robbi Wilson RN - 09/28/2021 10:59 AM EDT Patient on wait list for sooner appointment. Robbi Wilson RN * Telephone Encounter - Jorge aYnes - 09/28/2021 9:42 AM EDT Provider unavailable. Appointment rescheduled. Called and spoke with patient directly to confirm. Patients initial consult was scheduled for , then she had it moved up to September due to her pain, now her appointment has been rescheduled for next available in December and added to the wait list. Patient is willing to go to any location for a sooner appointment. Is there any possible way to get her in sooner appointment. Please advise. [facility] History general Narrative - Reported* Type Description Date Medical History Vitamin D deficiency Medical History B12 Surgical History GALLBLADDER Surgical History TUBAL LIGATION Surgical History hysterectomy 04/2016 Skin Scan Other 12-01-2016 History general Narrative - Reported* Type Description Date Medical History Vitamin D deficiency Medical History B12 Medical History fibromyalgia Surgical History GALLBLADDER Surgical History TUBAL LIGATION Surgical History hysterectomy 04/2016 Skin Scan Other Evaluation + Plan note No data available for this section [facility] noteNo InformationNortAmerican Academic Health System [employer] Other Evaluation noteNo assessment information available [facility] Work Phone: Evaluation note* Diagnosis Morbid obesity (CMS-HCC)- Primary Morbid obesity Pre-bariatric surgery nutrition evaluation [facility] Diagnosis Morbid obesity (CMS-HCC)- Primary Morbid obesity Pre-bariatric surgery nutrition evaluation Morbid obesity ([facility]) Morbid obesity Other fatigue documented [facility] note Author Yao Aguilera [facility] December 27, 2022 8:26am Note Date/Time December 27, 2022 8: 26am [facility] [address] [place] [address] Gastroenterology H&P Signed Patient: Tabitha Zaragoza MR#: [id number] : 1975 Acct:[id number] Age/Sex: 47 / F Adm Date: 3 Loc: Room: Type: [facility] Attending Dr: Yao Aguilera MD Copies to: [...] <Electronically signed by Yao Aguilera MD> 12/27/22825 [facility] Work Phone: Hiszfgb general Narrative - Reported* Type Description Date Medical History JUANITO (obstructive sleep apnea) Medical History Todd's esophagus Medical History GERD (gastroesophageal reflux di sease) Medical History Endometriosis Medical History Vitamin D deficiency Medical History Anxiety and depression Surgical History GALLBLADDER Surgical History TUBAL LIGATION Surgical History hysterectomy 04/2016 Skin Scan Other Hisadbv general Narrative - Reported* Type Description Date [...] Hospitalization History See above Hospitalization History child Skin Scan Other Hospital Discharge instructions No data available for this section [facility] Additional Instructions DISCHARGE INSTRUCTIONS FOR [...] NOT operate machinery such as power tools, [employer] mowers, [employer] blowers, sewing machines, etc. for 24 hours. [...] if you have any problems. -Office number [phone]. [facility] Work Phone: Progress note No data available for this section [facility] SouthReason for visit NarrativeGENERAL SURG REFERRAL UPDATEEvergreenhealth [employer] Other Reason for visit NarrativeReferral Tami Guthrie [facility] [employer] Other Summary Purpose Family History No Family [...] 4 Hiatal hernia (K44.9 ) Referral Organization [facility] Syntensia lin Referring Provider First Name Tami Referring Provider Last Name Rohrbacher Referring Provider Specialty Nurse Pract itioner Referred Organization [facility] Referred Address [address] [place], [place],[address] Referred Provider Specialty Gastroentero logy Referral Priority Routine General Notes Priti Summers 04:52:06 PM >received today, attahments made, notes locked, referral faxed Reason *Waiting for appt evaluate Diagnosis 1 Chronic cough (R05.3 ) Diagnosis 2 Mild intermittent as thma without complication (J45.20) Referral Organization [facility] Referring Provider First Name Tami Referring Provider Last Name Mattierbacher Referring Provider Specialty Nurse Pract itioner Referred Organization [facility] Pulmonary Dise ase Referred Provider Steven Machado Referred Address [address] [place] [address],[facility] [address],[place], [place],[address] Referred Provider Specialty Pulmonary Di seases Referral Priority Routine General Notes Priti Summers 02:24:08 PM >received today, sent P2P Reason evaluate Diagnosis 1 Fibromyalgia (M79.7) Referral Organization [facility] Fast Track Asiabrendan Referring Provider First Name Tami Referring Provider Last Name Rohrbacher Referring Provider Specialty Nurse Pract itioner Referred Organization [facility] Referred Provider Indio Martínez Referred Address [address],[place], [place],[address] Referred Provider Specialty Rheumatology Referral Priority Routine General Notes Priti Summers 01:59:12 PM > Received fax, attachments made, note not locked Reason needs referral for Mica [facility]ARRER[facility] Diagnosis 1 Moderate episode of recurrent major depressive disorder (F33.1) Referral Organization [facility] Chivo michelle Referring Provider First Name Atmi Referring Provider Last Name Jerri Referring Provider Specialty Nurse Eleni novoa Referred Organization [facility] Referred Address [address] [place], [place],[address] Referred Provider Specialty Psychiatry Referral Priority Routine General Notes Priti Summers 02:14:39 PM > Received fax, attatchments made, note is not locked Clinical Notes f: [phone] Additional Source Comments Source Comments (unrecognize d section and content) In the event this informatio n is protected by the Federal Confidentiality of Alcohol and Drug Abuse Patient Records regulations: The Federal rules restrict any use of the information to criminally investigate or prosecute any alcohol or drug abuse patient.[facility] Reason for Visit (unrecogniz ed section and content) Reason Comments Appointment Rescheduled Reason Comments Nutrition Counseling Specialty Diagnoses / Procedures Referred By Dominique t Referred To Contact Nutrition Diagnoses Morbid obesity ([facility]) Melyssa Ardon MD [address] [place] [id number] Referral ID Status Reason Start Date Expiration Date Visits Requested Visits Authorized [id number] Pending Review Specialty Services Required 02/02/2024 02/01/2025 12 12 Specialty Diagnoses / Procedures Referred By Contac t Referred To Contact Nutrition Diagnoses Morbid obesity ([facility]) Melyssa Ardon MD [address] [place] [address] Phone: tel: fax: Referral ID Status Reason Start Date Expiration Date Visits Requested Visits Authorized [id number] Pending Review Specialty Services Required 02/02/2024 02/01/2025 12 12 Care Teams (unrecognized sec tion and content) Associate Marketing Manager Relationship Specialty Start Date End Date Dileep Laboy MD [address] [place] [address] PCP - General Family Practice 09/01/21 Team Status: Active Member Role Status Dates Dileep Laboy MD Primary Care Provider Active Team Status: Inactive Member Role Status Dates Dileep Laboy MD Primary Care Provider Active Yao Aguilera MD Attending Provider Active Team Status: Active Member Role Status Dates Tami Guthrie APRN KILN WORKER-C Primary Care Provider Active Team Status: Active Member Role Status Dates Tami Guthrie APRN KILN WORKER-C Primary Care Provider Active Start: August 22, 2023 Rabia Carter LPN Attending Provider Active S tart: August 22, 2023 Associate Marketing Manager Relationship Specialty Start Date End Date Tami Guthrie APRN-KILN WORKER [address] [facility] [place] [address] PCP - General Nurse Practitioner 12/26/23 Associate Marketing Manager Relationship Specialty Start Date End Date Tami Guthrie APRN-VINAY [address] [facility] [place] [address] PCP - General Nurse Practitioner 12/26/23 INFORMATION SOURCE (unrecogn ized section and content) DATE CREATED AUTHOR 02/11/2022 [facility] DATE CREATED AUTHOR AUTHOR'S ORGANIZ ATION 02/14/2022 [facility] dical Specialist DATE CREATED AUTHOR AUTHOR'S ORGANIZ ATION 03/29/2022 [facility] DATE CREATED AUTHOR AUTHOR'S ORGANIZ ATION 08/22/2022 [facility] DATE CREATED AUTHOR AUTHOR'S ORGANIZ ATION 10/17/2023 [facility] DATE CREATED AUTHOR AUTHOR'S ORGANIZ ATION 01/20/2024 [facility] dical Specialists EPIC DATE CREATED AUTHOR AUTHOR'S ORGANIZ ATION 02/04/2024 [facility] DATE CREATED AUTHOR AUTHOR'S ORGANIZ ATION 04/18/2024 [facility] DATE CREATED AUTHOR AUTHOR'S ORGANIZ ATION 05/04/2024 [facility] Goals (unrecognized section and content) Goals may [...] BE BASED ON THE PRIMARY CLINICAL RECORDS. [facility]. provides no warranty or guarantee of the accuracy or completeness of information in this document.
== END 2024-05-16 08:58 | disposition home or self-care (01) ==
LOC: MAMMO 08:57
PROVIDERS: PCP Nurse Practitioner Family; Visit Provider Nurse Practitioner Family
DX: Z12.31 Encounter for screening mammogram for malignant neoplasm of breast (principal)
CPT/HCPCS: 77063; 77067

== ENCOUNTER 2024-09-27 11:57 | Outpatient (OUT) | payer OTHER, SELFPAY | END 2024-09-27 11:58 | disposition home or self-care (01) | LOC: LAB 11:59 | PROVIDERS: PCP Nurse Practitioner Family; Visit Provider Internal Medicine Cardiovascular Disease | DX: R06.02 Shortness of breath (principal) | CPT/HCPCS: 83880 ==